=== PATIENT | female | born 1940 | race Caucasian/White ===

== ENCOUNTER 2016-10-12 17:34 | Inpatient (IN) | payer MEDICARE ==
[2016-10-12] VITALS (8 sets, daily range): BP systolic 112–156; BP diastolic 60–92
[~2016-10-12] VITALS: Ht 165.1 cm; Wt 107.1 kg
[~2016-10-12 17:34] MED LIST: ALBU0.63 NEB; APIX5TAB PO; ASPI325T4 PO; AZIT250T6 PO; BENZ100C PO; BENZ100C2 PO; CALC-112 PO; DICL100G7 TP; DIPH25CA58 PO; DOCU100T11 PO; DOCU50CA9 PO; DOXY100T PO; DRON400T PO; FAMO-63 PO; FLEC100T PO; FURO40TA4 PO; GABA-586 PO; GUAI600T38 PO; HYDR-2762 PO; HYDR12.53 PO; IPRA3AMP IH; MIDO5TAB PO; OMEP20CA9 PO; OMEP20TA PO; POTA10TA10 PO; POTA99TA PO; PRED-220 PO; SERT50TA PO
[2016-10-12] MEDS ORDERED: ASPI81TA2 PO (18:02)
[2016-10-12] MEDS ORDERED: IV NORMAL SALINE 1000ML BAG 1,000 ML IV SCH (18:16)
--- NOTE | 2016-10-12 18:28 | PHYS DOC ---
Past Medical History Past Medical History: A-Fib, Arthritis, Constipation, COPD, GERD, Hypertension , Other Additional Past Medical Histor: chronic neck pain; DVT Past Surgical History: Hip Replacement, Hysterectomy, Other Additional Past Surgical Histo: PACEMAKER INSERTION LEFT CHEST, bladder suspension, hernia repair Alcohol Use: None Drug Use: None Adult General Chief Complaint Chief Complaint: WEAKNESS/GENERALIZED HPI HPI Patient is a 76 year old female who presents with complaint of generalized weakness and shortness of breath. Patient states that her generalized weakness has been worsening over the past 3 days. Patient states that she started noticing worsening shortness breath over the past few days. Patient has history COPD. Patient is on home oxygen normally at 3 L/m per nasal cannula. Patient has had severe difficulty with ambulation and normal activities at home due to weakness and shortness of breath. Patient also notes that she has been having trouble with constipation. The patient saw her primary physician's shipping assistant provider who advised her to take 5 MiraLAX capsules with a 32 ounce bottle of Gatorade. Patient states that this helped her move her bowels, however she feels too weak to be able to adequately clean herself in her current state. Patient denies any chest pain. Patient does complain of worsening neuropathy in both of her feet. Review of Systems Review of Systems Constitutional: Generalized weakness, denies fever [] Eyes: Denies change in visual acuity, redness, or eye pain [] HENT: Denies nasal congestion or sore throat [] Respiratory: Shortness breath, cough [] Cardiovascular: Denies chest pain or edema [] GI: Denies abdominal pain, nausea, vomiting, bloody stools or diarrhea [] : Denies dysuria or hematuria [] Musculoskeletal: Denies back pain or joint pain [] Integument: Denies rash or skin lesions [] Neurologic: Neuropathy, Denies headache, focal weakness or sensory changes [] Current Medications Current Medications Current Medications Medications (Trade) Dose Ordered Sig/Ck Start Time Stop Time Status Last Admin Dose Admin Albuterol/ Ipratropium (Duoneb) 6 ml 1X ONCE 10/12/16 18:30 10/12/16 18:31 DC 10/12/16 18:47 6 ML Methylprednisolone Sodium Succinate (Solu-Medrol 125mg Vial) 125 mg 1X ONCE 10/12/16 18:30 10/12/16 18:31 DC 10/12/16 19:08 125 MG Sodium Chloride (Iv Sodium Chloride 0.9% 1000ml Bag) 1,000 ml @ 100 mls/hr Q10H 10/12/16 18:16 10/13/16 04:15 10/12/16 19:09 100 MLS/HR Allergies Allergies Allergies Coded Allergies Type Severity Reaction Last Updated Verified Sulfa (Sulfonamide Antibiotics) Allergy Intermediate Hives 03/03/16 Yes Physical Exam Physical Exam Constitutional: Alert, afebrile, appears ill. [] HENT: Normocephalic, atraumatic, bilateral external ears normal, oropharynx moist, no oral exudates, nose normal. [] Eyes: PERRLA, EOMI, conjunctiva normal, no discharge. [] Neck: Normal range of motion, no tenderness, supple, no stridor. [] Cardiovascular:Heart rate regular rhythm, no murmur [] Lungs & Thorax: Moderate restriction of air movement bilaterally, expiratory wheezes bilaterally, prolonged expiratory phase [] Abdomen: Bowel sounds normal, soft, no tenderness, no masses, no pulsatile masses. [] Skin: Warm, dry, no erythema, no rash. [] Back: No tenderness, no CVA tenderness. [] Extremities: No tenderness, no cyanosis, no clubbing, ROM intact, trace pedal edema. [] Neurologic: Alert and oriented X 3, normal motor function, normal sensory function, no focal deficits noted. [] Current Patient Data Vital Signs Vital Signs Date Time Temp Pulse Resp B/P Pulse Ox O2 Delivery O2 Flow Rate FiO2 10/12/16 19:12 82 16 128/59 97 10/12/16 18:48 Nasal Cannula 2.0 10/12/16 17:46 98.8 98.8 Lab Values Laboratory Tests Test 10/12/16 18:00 White Blood Count 8.2x10^3/uL (4.0-11.0) Red Blood Count 3.46x10^6/uL (3.50-5.40) L Hemoglobin 7.1g/dL (12.0-15.5) L Hematocrit 24.0% (36.0-47.0) L Mean Corpuscular Volume 69fL (79-100) L Mean Corpuscular Hemoglobin 21pg (25-35) L Mean Corpuscular Hemoglobin Concent 30g/dL (31-37) L Red Cell Distribution Width 18.7% (11.5-14.5) H Platelet Count 251x10^3/uL (140-400) Neutrophils (%) (Auto) 64% (31-73) Lymphocytes (%) (Auto) 24% (24-48) Monocytes (%) (Auto) 10% (0-9) H Eosinophils (%) (Auto) 2% (0-3) Basophils (%) (Auto) 1% (0-3) Neutrophils # (Auto) 5.2x10^3uL (1.8-7.7) Lymphocytes # (Auto) 2.0x10^3/uL (1.0-4.8) Monocytes # (Auto) 0.8x10^3/uL (0.0-1.1) Eosinophils # (Auto) 0.1x10^3/uL (0.0-0.7) Basophils # (Auto) 0.0x10^3/uL (0.0-0.2) Platelet Estimate Adequate (ADEQUATE) Polychromasia Slight Hypochromasia Mod Poikilocytosis Slight Anisocytosis Slight Microcytosis Mod Tear Drop Cells Occ Ovalocytes Occ Sodium Level 144mmol/L (136-145) Potassium Level 2.7mmol/L (3.5-5.1) *L Chloride Level 102mmol/L (98-107) Carbon Dioxide Level 32mmol/L (21-32) Anion Gap 10 (6-14) Blood Urea Nitrogen 15mg/dL (7-20) Creatinine 1.1mg/dL (0.6-1.0) H Estimated GFR (Cockcroft-Gault) 48.3 BUN/Creatinine Ratio 14 (6-20) Glucose Level 114mg/dL (70-99) H Calcium Level 8.9mg/dL (8.5-10.1) Magnesium Level 1.7mg/dL (1.8-2.4) L Total Bilirubin 0.3mg/dL (0.2-1.0) Aspartate Amino Transferase (AST) 19U/L (15-37) Alanine Aminotransferase (ALT) 20U/L (14-59) Alkaline Phosphatase 71U/L (46-116) Creatine Kinase 115U/L (26-192) Creatine Kinase MB (Mass) 0.6ng/mL (0.0-3.6) Creatine Kinase MB Relative Index 0.5% (0-4) Troponin I Quantitative < 0.017ng/mL (0.000-0.055) LM-Bsf-G-Type Natriuretic Peptide 128pg/mL (0-449) Total Protein 6.7g/dL (6.4-8.2) Albumin 3.2g/dL (3.4-5.0) L Albumin/Globulin Ratio 0.9 (1.0-1.7) L Laboratory Tests 10/12/16 18:00 Laboratory Tests 10/12/16 18:00 EKG EKG Interpreted by me: Heart rate 87, sinus rhythm, right bundle branch block, no acute ST/T-wave abnormalities present [] Radiology/Procedures Radiology/Procedures One view AP chest x-ray interpreted by me: No acute infiltrates, no effusions, normal cardiac silhouette [] Course & Med Decision Making Course & Med Decision Making Pertinent Labs and Imaging studies reviewed. (See chart for details) Patient started on breathing treatments for COPD exacerbation. Patient was also started on Solu-Medrol. The patient was found to have a critically low hemoglobin of 7.1. The patient was typed and crossed for 2 units of packed red blood cells. Patient also found to have a potassium level at 2.7 and started on oral replacement therapy. Due to patient's current state she is unable to care for herself at home and will be admitted to the hospital for further care. I spoke with Dr. Sharma who accepted care of patient in hospital. Dragon Disclaimer Dragon Disclaimer This electronic medical record was generated, in whole or in part, using a voice recognition dictation system. Departure Departure Impression: Primary Impression: COPD exacerbation Additional Impressions: Symptomatic anemia Hypokalemia Disposition: ADMITTED INPATIENT Admitting Physician: Barb Sharma Condition: GUARDED Referrals: SONU HECK Jr, MD (PCP) Problem Qualifiers PAL SHEIKH MD Oct 12, 2016 18:28
[2016-10-12] MEDS ORDERED: IPRATRPIUM/ALBUTEROL 0.5/2.5MG 3 ML NEBU. NEB ONE (18:30)
[2016-10-12] MEDS ORDERED: methylPREDNISolone SOD SUCC PF 125 MG/2 ML VIAL. IV ONE (18:30)
[2016-10-12 18:31] LABS: BASO % 1 % (0-3); EOS % 2 % (0-3); HEMOGLOBIN 7.1 g/dL (12.0-15.5); LYMPH % 24 % (24-48); MEAN CORPUSCULAR HEMOGLOBIN 21 pg (25-35); MEAN CORPUSCULAR HGB CONC 30 g/dL (31-37); MEAN CORPUSCULAR VOLUME 69 fL (79-100); MONO % 10 % (0-9); NEUT % 64 % (31-73); PLATELET COUNT 251 x10^3/uL (140-400); RED BLOOD COUNT 3.46 x10^6/uL (3.50-5.40); RED CELL DISTRIBUTION WIDTH 18.7 % (11.5-14.5); WHITE BLOOD COUNT 8.2 x10^3/uL (4.0-11.0)
[2016-10-12 18:44] LABS: ANISOCYTOSIS SLIGHT; PLT ESTIMATE ADEQUATE (ADEQUATE)
[2016-10-12 18:46] LABS: HYPOCHROMIA MOD; MICROCYTOSIS MOD; OVALOCYTES OCC; POIKILOCYTOSIS SLIGHT; POLYCHROMASIA SLIGHT; TEAR DROP CELLS OCC
[2016-10-12 18:59] LABS: ALBUMIN 3.2 g/dL (3.4-5.0); ALBUMIN/GLOBULIN RATIO 0.9 (1.0-1.7); CALCIUM 8.9 mg/dL (8.5-10.1); CREATININE 1.1 mg/dL (0.6-1.0); GFR 48.3; TOTAL BILIRUBIN 0.3 mg/dL (0.2-1.0); TOTAL PROTEIN 6.7 g/dL (6.4-8.2)
[2016-10-12 19:01] LABS: POTASSIUM 2.7 mmol/L (3.5-5.1)
[2016-10-12 19:06] LABS: CKMB INDEX 0.5 % (0-4); CKMB MASS 0.6 ng/mL (0.0-3.6)
[2016-10-12] MEDS: IV NORMAL SALINE 1000ML BAG 1,000 ML IV SCH (19:23)
[2016-10-12] MEDS ORDERED: ACETAMINOPHEN 325 MG TABLET. PO PRN (19:30)
[2016-10-12] MEDS ORDERED: POTASSIUM CHLORIDE 20 MEQ TABLET.ER. PO ONE (19:30)
[2016-10-12] MEDS ORDERED: FENTANYL PF 100 MCG/2 ML VIAL. IV PRN (19:30)
[2016-10-12] MEDS ORDERED: ONDANSETRON PF 4 MG/2 ML VIAL. IV PRN (19:30)
[2016-10-12] MEDS ORDERED: FUROSEMIDE 20 MG/2 ML VIAL IV PRN (19:30)
[2016-10-12 20:06] LABS: OBC FLU VALID
[2016-10-12] MEDS: IPRATRPIUM/ALBUTEROL 0.5/2.5MG 3 ML NEBU. NEB SCH (23:17)
[2016-10-12] MEDS ORDERED: HYDROCODONE/APAP 7.5/325MG TABLET. PO PRN (23:45)
[2016-10-12] MEDS ORDERED: GUAIFENESIN ER 600 MG TABLET.ER PO PRN (23:45)
[2016-10-13] VITALS (9 sets, daily range): BP systolic 124–147; BP diastolic 64–75
[2016-10-13] MEDS: methylPREDNISolone SOD SUCC PF 40 MG/ML VIAL. IV SCH ×5 (00:28→23:50)
[2016-10-13] MEDS: GABAPENTIN 300 MG CAPSULE. PO SCH ×3 (00:29→20:22)
[2016-10-13] MEDS: FAMOTIDINE 20 MG TABLET. PO SCH ×2 (00:29→20:22)
--- NOTE | 2016-10-13 00:50 | ACF ---
Admission Forms Criteria COPD Clinical Indications for Admission to Inpatient Care (Place 'X' for any and all applicable criteria): Admission is indicated for ANY ONE of the following (1)(2)(3): [X]I. Acute exacerbation by high-risk comorbidity (e.g., pneumonia, dysrhythmia, heart failure, pleural effusion, pneumothorax) or severe underlying COPD (e.g., steroid dependent) [ ]II. Inpatient admission required rather than observation care (see Chronic Obstructive Pulmonary Disease: Observation Care) because of ANY ONE of the following: [ ]a) New or pre-existing signs or symptoms of COPD (eg, dyspnea or Tachypnea at rest or with minimal activity) that persist despite outpatient and observation care treatment [ ]b) New-onset hypoxemia (room air SaO2 less than 90%, PO2 less than 60 mm Hg (8.0 kPa)) that persists despite outpatient and observation care treatment [ ]c) Worsening of pre-existing hypoxemia (eg, new or increased requirement for supplemental oxygen to maintain oxygenation at baseline level) that persists despite outpatient and observation care treatment, with oxygen treatment needs performable only in acute inpatient setting [ ]d) Hypercarbia (PCO2 greater than 40 mm Hg (5.3 kPa))-induced respiratory acidosis (pH less than 7.35) that persists despite outpatient and observation care treatment [ ]e) Supplemental oxygen or respiratory treatments for over 24 hours that are performable only in acute inpatient setting [ ]f) Chest tube placement with active evacuation (e.g., suction, drainage) (5) [ ]g) Other condition, treatment or monitoring requiring inpatient admission [ ]III. Planned invasive surgical or diagnostic procedures requiring acute- care hospitalization [ ]IV. Acute respiratory failure (e.g., uncompensated hypercarbia, severe hypoxemia) [ ]V. Severe comorbid condition (e.g., severe steroid myopathy, acute vertebral fracture) that has acutely worsened pulmonary function [ ]. Confusion state, lethargy, obtundation, stupor or coma Extended stay beyond goal length of stay may be needed for (31)(32): [ ]a ) Respiratory Failure. [ ]b) Severe or persisting hypoxemia or hypercarbia [ ]c) Severe or persistent dyspnea [ ]d) Comorbidities (e.g. chronic heart failure, atrial fibrillation with rapid response, pneumonia) [ ]e) Malnutrition The original [facility] content created by [facility] has been revised. The portions of the content which have been revised are identified through the use of italic text or in bold, and [facility] has neither reviewed nor approved the modified material. All other unmodified content is copyright [facility]. Please see references footnoted in the original [facility] edition 2016 Admission Criteria Met?: Yes JAME BROWN Oct 13, 2016 00:50
[2016-10-13 04:52] LABS: BASO % 0 % (0-3); EOS % 0 % (0-3); HEMATOCRIT 29.2 % (36.0-47.0); HEMOGLOBIN 9.2 g/dL (12.0-15.5); LYMPH # 0.5 x10^3/uL (1.0-4.8); LYMPH % 6 % (24-48); MEAN CORPUSCULAR HEMOGLOBIN 23 pg (25-35); MEAN CORPUSCULAR HGB CONC 32 g/dL (31-37); MEAN CORPUSCULAR VOLUME 72 fL (79-100); MONO % 1 % (0-9); NEUT % 93 % (31-73); PLATELET COUNT 245 x10^3/uL (140-400); RED BLOOD COUNT 4.04 x10^6/uL (3.50-5.40); RED CELL DISTRIBUTION WIDTH 21.5 % (11.5-14.5); WHITE BLOOD COUNT 8.6 x10^3/uL (4.0-11.0)
[2016-10-13 05:13] LABS: CALCIUM 8.5 mg/dL (8.5-10.1); GFR 53.9; POTASSIUM 3.4 mmol/L (3.5-5.1)
[2016-10-13 06:08] LABS: PLT ESTIMATE ADEQUATE (ADEQUATE)
[2016-10-13 06:09] LABS: ANISOCYTOSIS MOD; HYPOCHROMIA MOD; MICROCYTOSIS SLIGHT
--- NOTE | 2016-10-13 06:52 | EKG ---
[facility] [address] [place] [address] Test Date: 2016-10-12 Test Time: 17:51:45 Pat Name: BERNA BRAVO Department: Room: Gender: F Communications Executive: TAO : 1940 Requested By: PAL SHEIKH Order Number: [id number] Reading MD: Measurements Intervals [place] Rate: 87 P: 138 ND: 154 QRS: -145 QRSD: 134 T: 161 QT: 418 QTc: 510 Interpretive Statements SINUS RHYTHM ABNORMAL RIGHT SUPERIOR AXIS DEVIATION NON SPECIFIC INTRAVENTRICULAR BLOCK RVH WITH REPOLARIZATION ABNORMALITY ABNORMAL ECG RI6.01 No previous ECG available for comparison
[2016-10-13] MEDS: IPRATRPIUM/ALBUTEROL 0.5/2.5MG 3 ML NEBU. NEB SCH ×7 (07:01→20:18)
--- NOTE | 2016-10-13 08:00 | RAD ---
Indication shortness of air. History of hypertension and COPD. A single view of the chest was obtained. Comparison is made to a study 07/10/2016. Heart size is at the upper limits of normal but unchanged. There is no congestive heart failure. Some volume loss at the left lung base is noted appearing similar and likely chronic. A consolidated pneumonia is not seen. Overall a significant change in the appearance of the chest is not seen. Bipolar cardiac pacing device is noted. IMPRESSION: No acute or focal process seen. No significant change
[2016-10-13] MEDS ORDERED: HYDROCHLOROTHIAZIDE 12.5 MG CAPSULE. PO PRN (09:15)
[2016-10-13] MEDS ORDERED: DICLOFENAC SODIUM 1% TOPICAL GEL 100GM TUBE. TP PRN (09:15)
[2016-10-13] MEDS ORDERED: ONDANSETRON PF 4 MG/2 ML VIAL. IV PRN (09:15)
[2016-10-13] MEDS ORDERED: MAGNESIUM HYDROXIDE 2,400 MG/30 ML ORAL.SUSP. PO PRN (09:15)
[2016-10-13] MEDS ORDERED: ACETAMINOPHEN 325 MG TABLET. PO PRN (09:15)
[2016-10-13] MEDS ORDERED: BENZONATATE 100 MG CAPSULE. PO PRN (09:15)
[2016-10-13] MEDS ORDERED: LACTULOSE 20 GM/30 ML SOLUTION. PO PRN (09:15)
[2016-10-13] MEDS ORDERED: DOCUSATE SODIUM 100 MG CAPSULE PO SCH (09:30)
[2016-10-13] MEDS ORDERED: BUDESONIDE 0.5 MG/2 ML NEBU NEB SCH (09:30)
[2016-10-13] MEDS ORDERED: IPRATRPIUM/ALBUTEROL 0.5/2.5MG 3 ML NEBU. IH SCH (09:30)
[2016-10-13] MEDS: ASPIRIN 81 MG TAB.CHEW PO SCH (10:20)
[2016-10-13] MEDS: DOCUSATE SODIUM 100 MG CAPSULE PO SCH ×2 (10:20→20:23)
[2016-10-13] MEDS: GUAIFENESIN ER 600 MG TABLET.ER PO SCH ×2 (10:20→20:23)
[2016-10-13] MEDS: SENNOSIDES/DOCUSATE 8.6/50MG TABLET. PO SCH ×2 (10:20→20:23)
[2016-10-13] MEDS: CALCIUM CARB/VIT D3 500/200 TABLET PO SCH (10:20)
[2016-10-13] MEDS: PANTOPRAZOLE 40 MG TABLET. PO SCH (10:20)
--- NOTE | 2016-10-13 11:30 | PDOC2 ---
GI CONSULT Reason For Consult: Anemia HPI: HPI: 76 y/o evaluated in the ER for progressive weakness. Admitted w/ COPD exacerbation and anemia. H/o anemia w/ Hgb mostly ranging from 8-9, some 10s over the last couple years. Recalls previous blood transfusion. On admission was 7.1 (now 9.2) w/ low indices, elevated RDW, and normal BUN and Cr. Hemoccult, iron profile, ferritin, folate, and B12 ordered. Iron studies all low in 2016. Denies obvious bleeding including hematemesis, hematochezia, melena, and hematuria. Is on Eliquis for A Fib, also prednisone 10mg Q a.m. for COPD (still smokes). H/o GERD on omeprazole Q a.m. after breakfast and Pepcid QHS w/ some improvement of symptoms. Recall sprevious EGD at [facility] (before moving to the [facility] in 2010) which reportedly revealed a hiatal hernia. Additional h/o screening colonoscopy "years ago" (also [facility]) which was reportedly normal. Rare NSAID and narcotic use. Feels bloated and puffy, blames prednisone but also has h/o constipation. Has 1 stool daily w/o straining w/ feeling of incomplete evacuation. Generally uses suppositories PRN. 3 weeks ago called PCP and was advised to do somewhat of a Miralax prep. Had a stool about three days later and has been using Miralax daily this week. PMH: PMH: A Fib, HTN, COPD on O2, BLE DVT, GERD, neuropathy, depression/anxiety, OA, pacemaker, hip replacement, appendectomy, hysterectomy, bladder suspension, cataract extraction, incisional hernia repair FH: Family History: No pertinent hx Social History: Smoke: <1 pack per day ALCOHOL: rare Drugs: None ROS: GEN: Denies fevers, chills, sweats HEENT: Denies blurred vision, sore throat CV: Denies chest pain RESP: +shortness of air, cough GI: Per HPI : Denies hematuria, dysuria ENDO: Denies weight changes NEURO: Denies confusion, dizziness MSK: +weakness SKIN: Denies jaundice, pruritus VItals: Vitals: Vital Signs Date Time Temp Pulse Resp B/P Pulse Ox O2 Delivery O2 Flow Rate FiO2 10/13/16 11:00 98.5 88 24 147/75 97 Room Air 98.5 10/13/16 07:02 3.0 Labs: Labs: Laboratory Tests Test 10/12/16 18:00 10/12/16 19:40 10/13/16 03:55 White Blood Count 8.2x10^3/uL (4.0-11.0) 8.6x10^3/uL (4.0-11.0) Red Blood Count 3.46x10^6/uL (3.50-5.40) 4.04x10^6/uL (3.50-5.40) Hemoglobin 7.1g/dL (12.0-15.5) 9.2g/dL (12.0-15.5) Hematocrit 24.0% (36.0-47.0) 29.2% (36.0-47.0) Mean Corpuscular Volume 69fL (79-100) 72fL (79-100) Mean Corpuscular Hemoglobin 21pg (25-35) 23pg (25-35) Mean Corpuscular Hemoglobin Concent 30g/dL (31-37) 32g/dL (31-37) Red Cell Distribution Width 18.7% (11.5-14.5) 21.5% (11.5-14.5) Platelet Count 251x10^3/uL (140-400) 245x10^3/uL (140-400) Neutrophils (%) (Auto) 64% (31-73) 93% (31-73) Lymphocytes (%) (Auto) 24% (24-48) 6% (24-48) Monocytes (%) (Auto) 10% (0-9) 1% (0-9) Eosinophils (%) (Auto) 2% (0-3) 0% (0-3) Basophils (%) (Auto) 1% (0-3) 0% (0-3) Neutrophils # (Auto) 5.2x10^3uL (1.8-7.7) 8.1x10^3uL (1.8-7.7) Lymphocytes # (Auto) 2.0x10^3/uL (1.0-4.8) 0.5x10^3/uL (1.0-4.8) Monocytes # (Auto) 0.8x10^3/uL (0.0-1.1) 0.1x10^3/uL (0.0-1.1) Eosinophils # (Auto) 0.1x10^3/uL (0.0-0.7) 0.0x10^3/uL (0.0-0.7) Basophils # (Auto) 0.0x10^3/uL (0.0-0.2) 0.0x10^3/uL (0.0-0.2) Platelet Estimate Adequate (ADEQUATE) Adequate (ADEQUATE) Polychromasia Slight Hypochromasia Mod Mod Poikilocytosis Slight Anisocytosis Slight Mod Microcytosis Mod Slight Tear Drop Cells Occ Ovalocytes Occ Sodium Level 144mmol/L (136-145) 143mmol/L (136-145) Potassium Level 2.7mmol/L (3.5-5.1) 3.4mmol/L (3.5-5.1) Chloride Level 102mmol/L (98-107) 103mmol/L (98-107) Carbon Dioxide Level 32mmol/L (21-32) 30mmol/L (21-32) Anion Gap 10 (6-14) 10 (6-14) Blood Urea Nitrogen 15mg/dL (7-20) 14mg/dL (7-20) Creatinine 1.1mg/dL (0.6-1.0) 1.0mg/dL (0.6-1.0) Estimated GFR (Cockcroft-Gault) 48.3 53.9 BUN/Creatinine Ratio 14 (6-20) Glucose Level 114mg/dL (70-99) 201mg/dL (70-99) Calcium Level 8.9mg/dL (8.5-10.1) 8.5mg/dL (8.5-10.1) Magnesium Level 1.7mg/dL (1.8-2.4) Total Bilirubin 0.3mg/dL (0.2-1.0) Aspartate Amino Transf (AST/SGOT) 19U/L (15-37) Alanine Aminotransferase (ALT/SGPT) 20U/L (14-59) Alkaline Phosphatase 71U/L (46-116) Creatine Kinase 115U/L (26-192) Creatine Kinase MB (Mass) 0.6ng/mL (0.0-3.6) Creatine Kinase MB Relative Index 0.5% (0-4) Troponin I Quantitative < 0.017ng/mL (0.000-0.055) SO-Kpf-Q-Type Natriuretic Peptide 128pg/mL (0-449) Total Protein 6.7g/dL (6.4-8.2) Albumin 3.2g/dL (3.4-5.0) Albumin/Globulin Ratio 0.9 (1.0-1.7) Influenza Type A Antigen Negative (NEGATIVE) Influenza Type B Antigen Negative (NEGATIVE) Segmented Neutrophils % 95% (35-66) Lymphocytes % 5% (24-48) Allergies: Coded Allergies: Sulfa (Sulfonamide Antibiotics) (Verified Allergy, Intermediate, Hives, 06/08) Medications: Current Medications Medications (Trade) Dose Ordered Sig/Ck Route PRN Reason Start Time Stop Time Status Last Admin Dose Admin Sodium Chloride (Iv Sodium Chloride 0.9% 1000ml Bag) 1,000 ml @ 100 mls/hr Q10H IV 10/12/16 18:16 10/13/16 04:15 DC 10/12/16 19:09 Albuterol/ Ipratropium (Duoneb) 6 ml 1X ONCE NEB 10/12/16 18:30 10/12/16 18:31 DC 10/12/16 18:47 Methylprednisolone Sodium Succinate (Solu-Medrol 125mg Vial) 125 mg 1X ONCE IV 10/12/16 18:30 10/12/16 18:31 DC 10/12/16 19:08 Potassium Chloride (Klor-Con) 40 meq 1X ONCE PO 10/12/16 19:30 10/12/16 19:31 DC 10/12/16 19:58 Albuterol/ Ipratropium (Duoneb) 3 ml RTQID NEB 10/12/16 20:00 10/13/16 19:59 10/13/16 07:01 Methylprednisolone Sodium Succinate (Solu-Medrol 40mg Vial) 60 mg Q6HRS IV 10/13/16 00:00 10/13/16 05:00 Famotidine (Pepcid) 10 mg HS PO 10/13/16 00:00 10/13/16 00:29 Gabapentin (Neurontin) 300 mg BID PO 10/13/16 00:00 10/13/16 08:06 Acetaminophen/ Hydrocodone Bitart (Lortab 7.5/325) 1 tab PRN Q6HRS PRN PO PAIN 10/12/16 23:45 10/13/16 00:29 Guaifenesin (Mucinex) 600 mg PRN BID PRN PO cough 10/12/16 23:45 10/13/16 00:29 Aspirin (Children'S Aspirin) 81 mg DAILY PO 10/13/16 09:30 10/13/16 10:20 Guaifenesin (Mucinex) 600 mg BID PO 10/13/16 09:30 10/13/16 10:20 Calcium/Vitamin D (Oscal D 500mg/ 200uts) 1 tab DAILYWBKFT PO 10/13/16 09:30 10/13/16 10:20 Pantoprazole Sodium (Protonix) 40 mg DAILYAC PO 10/13/16 11:30 10/13/16 10:20 Senna/Docusate Sodium (Senna Plus) 1 tab BID PO 10/13/16 09:30 10/13/16 10:20 Docusate Sodium (Colace) 100 mg BID PO 10/13/16 09:15 10/13/16 10:20 Imaging: Imaging: CXR 10/12/16 IMPRESSION: No acute or focal process seen. No significant change. PE: GEN: NAD, sitting on edge of bed HEENT: Atraumatic, PERRL LUNGS: decreased, tight, insp and exp wheezing, nasal cannula HEART: tachycardic ABD: BS quiet, S/NT EXTREMITY: No edema SKIN: No rashes, no jaundice NEURO/PSYCH: A & O 3 A/P: A/P: Weakness, COPD Anemia -history of, reviewed labs -iron, B12, folate, hemoccult pending -on Eliquis for A Fib w/ h/o DVTs, rare NSAIDs Constipation, bloating -history of, describes incomplete evacuation -usually uses suppositories, has recently started Miralax -rare narcs GERD -improved w/ PPI (after breakfast) and H2 albin -reports previous EGD showed hiatal hernia CRC screen -reports normal colonoscopy years ago -- Await additional labs. Suggested better timing of PPI. For now, try Miralax BID but might need Relistor or Movantik (?narcs contribute - says doesn't take very often) or something like Amitiza or Linzess. ?KUB Other per Dr. Dejesus. DEVAN NEIL Oct 13, 2016 11:30
[2016-10-13] MEDS ORDERED: POTASSIUM CHLORIDE 20 MEQ TABLET.ER. PO ONE (11:45)
[2016-10-13] MEDS ORDERED: ANTI-COAG MONITOR BY PHARMACY. MC PRN (11:45)
--- NOTE | 2016-10-13 11:50 | PDOC1 ---
History and Physical Date of Admission Date of Admission 10/12/16 Identification/Chief Complaint Chief Complaint weak Problems: Source Source: Chart review, Patient History of Present Illness History of Present Illness HPI HPI Patient is a 76 year old female who presents with complaint of generalized weakness. Pt lives with , use a cane and a walker at home. She denies weight loss, but feels generalized weakness. Hb was found 7.2 in ER, baseline 8-10, but denies dark stool, was found low iron last year,but not taking iron, and pt is not happy about her PCP. she also s/o constipation, not taking stool softer consistently. not taking vege much.She did some abd sx before long time ago, since then , c/o some weird feeling under rib cage, abd ct neg 2015. She looks sob, but when i asked her, she said she feels it is normal for her, and on home NC 3L. but when i told her she has wheezing, she said the wheezing is worse recently. She was here 06/2016 for COPD. still smoking, <1ppd, use duoneb 4 times daily. Past Medical History Cardiovascular: AFIB, HTN, Hyperlipidemia, Other Pulmonary: Bronchitis, COPD GI: GERD Psych: No pertinent hx Rheumatologic: No pertinent hx Infectious disease: No pertinent hx Renal/: No pertinent hx Endocrine: No pertinent hx Past Surgical History Past Surgical History: Pacemaker, Cataract Removal, Hernia Repair, Total hip replacement, Hysterectomy, Other Family History Family History: Hypertension, Family History Unknown Social History Smoke: <1 pack per day ALCOHOL: rare Drugs: None Current Problem List Problem List Problems Medical Problems: (1) COPD exacerbation Status: Acute (2) Hypokalemia Status: Acute (3) Symptomatic anemia Status: Acute Current Medications Current Medications Current Medications Medications (Trade) Dose Ordered Sig/Ck Start Time Stop Time Status Last Admin Dose Admin Acetaminophen (Tylenol) 650 mg PRN Q6HRS PRN 10/13/16 09:15 Acetaminophen/ Hydrocodone Bitart (Lortab 7.5/325) 1 tab PRN Q6HRS PRN 10/12/16 23:45 10/13/16 00:29 1 TAB Albuterol Sulfate (Ventolin Neb Soln) 2.5 mg PRN Q4HRS PRN 10/13/16 09:15 Albuterol/ Ipratropium (Duoneb) 3 ml RTQID 10/13/16 12:00 10/13/16 11:13 3 ML Apixaban (Eliquis) 5 mg BID 10/13/16 12:00 Aspirin (Children'S Aspirin) 81 mg DAILY 10/13/16 09:30 10/13/16 10:20 81 MG Benzonatate (Tessalon Perle) 100 mg PRN DAILY PRN 10/13/16 09:15 Budesonide (Pulmicort) 0.5 mg RTBID 10/13/16 09:30 10/13/16 11:10 0.5 MG Calcium/Vitamin D (Oscal D 500mg/ 200uts) 1 tab [id number] 10/13/16 09:30 10/13/16 10:20 1 TAB Diclofenac Sodium (Voltaren) 1 vish PRN QID PRN 10/13/16 09:15 Docusate Sodium (Colace) 100 mg BID 10/13/16 09:15 10/13/16 10:20 100 MG Famotidine (Pepcid) 10 mg HS 10/13/16 00:00 10/13/16 00:29 10 MG Fentanyl Citrate 50 mcg 50 mcg PRN Q2HR PRN 10/12/16 19:30 10/13/16 19:29 Furosemide (Lasix) 20 mg 1X PRN PRN 10/12/16 19:30 10/13/16 19:29 Gabapentin (Neurontin) 300 mg BID 10/13/16 00:00 10/13/16 08:06 300 MG Guaifenesin (Mucinex) 600 mg BID 10/13/16 09:30 10/13/16 10:20 600 MG Hydrochlorothiazide (Microzide) 12.5 mg PRN DAILY PRN 10/13/16 09:15 Info (Anti-Coagulation Monitoring By Pharmacy) 1 each PRN DAILY PRN 10/13/16 11:45 Lactulose 20 gm PRN Q12HR PRN 10/13/16 09:15 Magnesium Hydroxide (Milk Of Magnesia) 2,400 mg PRN Q12HR PRN 10/13/16 09:15 Methylprednisolone Sodium Succinate (Solu-Medrol 40mg Vial) 60 mg Q6HRS 10/13/16 00:00 10/13/16 05:00 60 MG Methylprednisolone Sodium Succinate (Solu-Medrol 125mg Vial) 125 mg 1X ONCE 10/12/16 18:30 10/12/16 18:31 DC 10/12/16 19:08 125 MG Midodrine (Proamatine) 5 mg [id number] 10/13/16 13:00 Ondansetron HCl (Zofran) 4 mg PRN Q6HRS PRN 10/13/16 09:15 Pantoprazole Sodium (Protonix) 40 mg DAILYAC 10/13/16 11:30 10/13/16 10:20 40 MG Polyethylene Glycol (miraLAX PACKET) 17 gm BID 10/13/16 12:00 Potassium Chloride (Klor-Con) 10 meq DAILYWBKFT 10/14/16 08:00 Senna/Docusate Sodium (Senna Plus) 1 tab BID 10/13/16 09:30 10/13/16 10:20 1 TAB Sodium Chloride (Iv Sodium Chloride 0.9% 1000ml Bag) 1,000 ml @ 75 mls/hr [id number] 10/12/16 19:23 10/13/16 19:22 Allergies Allergies Allergies Coded Allergies Type Severity Reaction Last Updated Verified Sulfa (Sulfonamide Antibiotics) Allergy Intermediate Hives 03/03/16 Yes ROS Review of System CONSTITUTIONAL: No fever or chills EYES: No recent changes SKIN: No rash or itching CARDIOVASCULAR: No chest pain, syncope, palpitations, or edema RESPIRATORY: No SOB or cough GASTROINTESTINAL: No nausea, vomiting or abdominal pain NEUROLOGICAL: No headaches or weakness ENDOCRINE: No cold or heat intolerance GENITOURINARY: No urgency or frequency of urination MUSCULOSKELETAL: No back pain or joint pain LYMPHATICS: No enlarged lymph nodes PSYCHIATRIC: No anxiety or depression Physical Exam Physical Exam GEN.: No apparent distress. Alert and oriented. HEENT: Head is normocephalic, atraumatic NECK: Supple. LUNGS: Clear to auscultation. HEART: RRR, S1, S2 present. Peripheral pulses intact ABDOMEN: Soft, nontender. Positive bowel sounds. EXTREMITIES: Without any cyanosis. NEUROLOGIC: Normal speech, normal tone PSYCHIATRIC: Normal affect, normal mood. SKIN: No ulcerations Vitals Vitals Vital Signs Date Time Temp Pulse Resp B/P Pulse Ox O2 Delivery O2 Flow Rate FiO2 10/13/16 11:15 Nasal Cannula 3.0 10/13/16 11:00 98.5 88 24 147/75 97 98.5 Labs Labs Laboratory Tests Test 10/12/16 18:00 10/12/16 19:40 10/13/16 03:55 White Blood Count 8.2x10^3/uL (4.0-11.0) 8.6x10^3/uL (4.0-11.0) Red Blood Count 3.46x10^6/uL (3.50-5.40) 4.04x10^6/uL (3.50-5.40) Hemoglobin 7.1g/dL (12.0-15.5) 9.2g/dL (12.0-15.5) Hematocrit 24.0% (36.0-47.0) 29.2% (36.0-47.0) Mean Corpuscular Volume 69fL (79-100) 72fL (79-100) Mean Corpuscular Hemoglobin 21pg (25-35) 23pg (25-35) Mean Corpuscular Hemoglobin Concent 30g/dL (31-37) 32g/dL (31-37) Red Cell Distribution Width 18.7% (11.5-14.5) 21.5% (11.5-14.5) Platelet Count 251x10^3/uL (140-400) 245x10^3/uL (140-400) Neutrophils (%) (Auto) 64% (31-73) 93% (31-73) Lymphocytes (%) (Auto) 24% (24-48) 6% (24-48) Monocytes (%) (Auto) 10% (0-9) 1% (0-9) Eosinophils (%) (Auto) 2% (0-3) 0% (0-3) Basophils (%) (Auto) 1% (0-3) 0% (0-3) Neutrophils # (Auto) 5.2x10^3uL (1.8-7.7) 8.1x10^3uL (1.8-7.7) Lymphocytes # (Auto) 2.0x10^3/uL (1.0-4.8) 0.5x10^3/uL (1.0-4.8) Monocytes # (Auto) 0.8x10^3/uL (0.0-1.1) 0.1x10^3/uL (0.0-1.1) Eosinophils # (Auto) 0.1x10^3/uL (0.0-0.7) 0.0x10^3/uL (0.0-0.7) Basophils # (Auto) 0.0x10^3/uL (0.0-0.2) 0.0x10^3/uL (0.0-0.2) Platelet Estimate Adequate (ADEQUATE) Adequate (ADEQUATE) Polychromasia Slight Hypochromasia Mod Mod Poikilocytosis Slight Anisocytosis Slight Mod Microcytosis Mod Slight Tear Drop Cells Occ Ovalocytes Occ Sodium Level 144mmol/L (136-145) 143mmol/L (136-145) Potassium Level 2.7mmol/L (3.5-5.1) 3.4mmol/L (3.5-5.1) Chloride Level 102mmol/L (98-107) 103mmol/L (98-107) Carbon Dioxide Level 32mmol/L (21-32) 30mmol/L (21-32) Anion Gap 10 (6-14) 10 (6-14) Blood Urea Nitrogen 15mg/dL (7-20) 14mg/dL (7-20) Creatinine 1.1mg/dL (0.6-1.0) 1.0mg/dL (0.6-1.0) Estimated GFR (Cockcroft-Gault) 48.3 53.9 BUN/Creatinine Ratio 14 (6-20) Glucose Level 114mg/dL (70-99) 201mg/dL (70-99) Calcium Level 8.9mg/dL (8.5-10.1) 8.5mg/dL (8.5-10.1) Magnesium Level 1.7mg/dL (1.8-2.4) Total Bilirubin 0.3mg/dL (0.2-1.0) Aspartate Amino Transf (AST/SGOT) 19U/L (15-37) Alanine Aminotransferase (ALT/SGPT) 20U/L (14-59) Alkaline Phosphatase 71U/L (46-116) Creatine Kinase 115U/L (26-192) Creatine Kinase MB (Mass) 0.6ng/mL (0.0-3.6) Creatine Kinase MB Relative Index 0.5% (0-4) Troponin I Quantitative < 0.017ng/mL (0.000-0.055) ZM-Lgr-S-Type Natriuretic Peptide 128pg/mL (0-449) Total Protein 6.7g/dL (6.4-8.2) Albumin 3.2g/dL (3.4-5.0) Albumin/Globulin Ratio 0.9 (1.0-1.7) Influenza Type A Antigen Negative (NEGATIVE) Influenza Type B Antigen Negative (NEGATIVE) Segmented Neutrophils % 95% (35-66) Lymphocytes % 5% (24-48) Laboratory Tests Test 10/12/16 18:00 10/12/16 19:40 10/13/16 03:55 White Blood Count 8.2x10^3/uL (4.0-11.0) 8.6x10^3/uL (4.0-11.0) Red Blood Count 3.46x10^6/uL (3.50-5.40) 4.04x10^6/uL (3.50-5.40) Hemoglobin 7.1g/dL (12.0-15.5) 9.2g/dL (12.0-15.5) Hematocrit 24.0% (36.0-47.0) 29.2% (36.0-47.0) Mean Corpuscular Volume 69fL (79-100) 72fL (79-100) Mean Corpuscular Hemoglobin 21pg (25-35) 23pg (25-35) Mean Corpuscular Hemoglobin Concent 30g/dL (31-37) 32g/dL (31-37) Red Cell Distribution Width 18.7% (11.5-14.5) 21.5% (11.5-14.5) Platelet Count 251x10^3/uL (140-400) 245x10^3/uL (140-400) Neutrophils (%) (Auto) 64% (31-73) 93% (31-73) Lymphocytes (%) (Auto) 24% (24-48) 6% (24-48) Monocytes (%) (Auto) 10% (0-9) 1% (0-9) Eosinophils (%) (Auto) 2% (0-3) 0% (0-3) Basophils (%) (Auto) 1% (0-3) 0% (0-3) Neutrophils # (Auto) 5.2x10^3uL (1.8-7.7) 8.1x10^3uL (1.8-7.7) Lymphocytes # (Auto) 2.0x10^3/uL (1.0-4.8) 0.5x10^3/uL (1.0-4.8) Monocytes # (Auto) 0.8x10^3/uL (0.0-1.1) 0.1x10^3/uL (0.0-1.1) Eosinophils # (Auto) 0.1x10^3/uL (0.0-0.7) 0.0x10^3/uL (0.0-0.7) Basophils # (Auto) 0.0x10^3/uL (0.0-0.2) 0.0x10^3/uL (0.0-0.2) Platelet Estimate Adequate (ADEQUATE) Adequate (ADEQUATE) Polychromasia Slight Hypochromasia Mod Mod Poikilocytosis Slight Anisocytosis Slight Mod Microcytosis Mod Slight Tear Drop Cells Occ Ovalocytes Occ Sodium Level 144mmol/L (136-145) 143mmol/L (136-145) Potassium Level 2.7mmol/L (3.5-5.1) 3.4mmol/L (3.5-5.1) Chloride Level 102mmol/L (98-107) 103mmol/L (98-107) Carbon Dioxide Level 32mmol/L (21-32) 30mmol/L (21-32) Anion Gap 10 (6-14) 10 (6-14) Blood Urea Nitrogen 15mg/dL (7-20) 14mg/dL (7-20) Creatinine 1.1mg/dL (0.6-1.0) 1.0mg/dL (0.6-1.0) Estimated GFR (Cockcroft-Gault) 48.3 53.9 BUN/Creatinine Ratio 14 (6-20) Glucose Level 114mg/dL (70-99) 201mg/dL (70-99) Calcium Level 8.9mg/dL (8.5-10.1) 8.5mg/dL (8.5-10.1) Magnesium Level 1.7mg/dL (1.8-2.4) Total Bilirubin 0.3mg/dL (0.2-1.0) Aspartate Amino Transf (AST/SGOT) 19U/L (15-37) Alanine Aminotransferase (ALT/SGPT) 20U/L (14-59) Alkaline Phosphatase 71U/L (46-116) Creatine Kinase 115U/L (26-192) Creatine Kinase MB (Mass) 0.6ng/mL (0.0-3.6) Creatine Kinase MB Relative Index 0.5% (0-4) Troponin I Quantitative < 0.017ng/mL (0.000-0.055) FE-Frl-W-Type Natriuretic Peptide 128pg/mL (0-449) Total Protein 6.7g/dL (6.4-8.2) Albumin 3.2g/dL (3.4-5.0) Albumin/Globulin Ratio 0.9 (1.0-1.7) Influenza Type A Antigen Negative (NEGATIVE) Influenza Type B Antigen Negative (NEGATIVE) Segmented Neutrophils % 95% (35-66) Lymphocytes % 5% (24-48) VTE Prophylaxis Ordered VTE Prophylaxis Devices: No VTE Pharmacological Prophylaxi: No Assessment/Plan Assessment/Plan 1. generalized weakness 2/2 copd and anemia 2. chronic anemia, iron deficiency likely 3. copd exacerbation 4. PAFIB 5. chronic OA 6.CHRONIC constipation 7. gerd 8. htn 9h/o bl leg dvt 10. PPM 11. HYPOkalemia 12. hypomagnesemia 13. smoking plan: 1. pulm, gi consult 2. cont duoneb, solumedrol, mucinex 3. cont home meds, on eliquis 4. add stool softner 5. replete k, mag labs tmr protonix PTOT ANEmia panel JORDI ROE MD Oct 13, 2016 11:50
[2016-10-13] MEDS ORDERED: MAGNESIUM SULFATE 2GM 50 ML IV ONE (12:00)
[2016-10-13] MEDS: MIDODRINE 5 MG TABLET PO SCH ×2 (13:09→17:38)
[2016-10-13] MEDS: POLYETHYLENE GLYCOL 3350 17 GM PACKET. PO SCH ×2 (13:09→20:22)
[2016-10-13] MEDS: APIXABAN 5 MG TABLET. PO SCH ×2 (13:09→20:22)
[2016-10-13] MEDS: IV NORMAL SALINE 1000ML BAG 1,000 ML IV SCH (13:10)
[2016-10-13 13:30] LABS: BILIRUBIN,URINE NEGATIVE (NEG); GLUCOSE,URINE 500 mg/dL (NEG); NITRITE,URINE NEGATIVE (NEG); PROTEIN,URINE NEGATIVE (NEG-TRACE); UROBILINOGEN,URINE 0.2 mg/dL (0.2 mg/dL)
[2016-10-13 13:42] LABS: BACTERIA,URINE FEW /HPF (0-FEW); RBC,URINE 0 /HPF (0-2); SQUAMOUS EPITHELIAL CELL,UR MOD /LPF; WBC,URINE OCC /HPF (0-4)
--- NOTE | 2016-10-13 14:47 | PDOC ---
Provider Note Provider Note dictated JAZMINE IVERSON MD Oct 13, 2016 14:47
--- NOTE | 2016-10-13 15:25 | CONS ---
DATE OF CONSULTATION: ATTENDING PHYSICIAN: Dr. Sharma. REASON FOR CONSULTATION: Dyspnea and weakness. HISTORY OF PRESENT ILLNESS: The patient is a 76-year-old female who has a history of oxygen-dependent chronic obstructive airway disease and chronic respiratory failure. She has been on chronic prednisone. She came into the hospital with generalized weakness. She was found to have hemoglobin of 7.2 in the ER. The patient states that she has been feeling bloated as well. She has constipation, which she is struggling and anytime when she strained she gets short of breath. The patient has been seen by Dr. Dejesus now. She denies any cough, no chest pains. With minimal activity, she gets short of breath and audible wheezing. Her chest x-ray reviewed, no acute process is seen. Consultation requested for further evaluation and management. 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 She uses a Trilogy ventilator, which she stopped using it and it was returned to [address]. PAST MEDICAL HISTORY: Significant for: 1. History of chronic respiratory failure on home oxygen 3-4 liters. History of severe COPD. 2. History of recurrent DVT, on chronic anticoagulation. 3. History of constipation. 4. History of hyperlipidemia. PAST SURGICAL HISTORY: Pacemaker, cataract removal, hernia repair, total hip replacement and hysterectomy. FAMILY HISTORY: Hypertension. SOCIAL HISTORY: She has a long history of tobacco use, but quit tobacco. ALLERGIES: TO SULFA. MEDICATIONS: Reviewed as listed in the MRAD including DuoNebs and Pulmicort. The patient is also on Eliquis. REVIEW OF SYSTEMS: Twelve-point systems were obtained. Pertinent positives discussed in my present illness, otherwise noncontributory. All systems that were negative were reviewed as well. PHYSICAL EXAMINATION: VITAL SIGNS: Blood pressure 147/75, pulse ox 97% on 3 liters, afebrile. HEENT: Sclerae nonicteric. NECK: Supple. LUNGS: With faint expiratory wheezes. CARDIOVASCULAR: Regular rate and rhythm. ABDOMEN: Soft, distended, decreased bowel sounds. EXTREMITIES: With no pitting edema. LABORATORY DATA: Reviewed. Influenza screen is negative. Chemistries: Potassium 3.4, BUN 14, creatinine 1.0. White cell count 8.6, hemoglobin ____ and platelets are ____. IMPRESSION: 1. Dyspnea secondary to combination of acute exacerbation of chronic obstructive pulmonary disease, anemia and increasing abdominal distension and bloating resulting in reduced lung compliance. 2. Chronic respiratory failure, on home oxygen at 3-4 liters. Oxygen requirement has not changed. 3. No definite pneumonia seen. 4. History of recurrent deep vein thrombosis, on chronic anticoagulation with Eliquis. 5. Weakness ,suspect due to anemia and ? steroid induced myopathy. RECOMMENDATIONS: 1. Continue with present oxygen. 2. Continue present bronchodilators. 3. The patient's dyspnea and weakness is probably related to anemia. She used to be on chronic steroids. She said she stopped 5 days ago. Cannot exclude steroid-induced myopathy and it is reasonable to keep her off for now. 4. Follow GI recommendations. She may need EGD and workup of anemia along with constipation workup. 5. Anticoagulation can be withheld if invasive GI procedures are required. JAZMINE IVERSON MD DR: ALIX/adrienne JOB#: [id number] / [id number] [employer]
[2016-10-13] MEDS: BUDESONIDE 0.5 MG/2 ML NEBU. NEB SCH (20:18)
[2016-10-13] MEDS: DIPHENHYDRAMINE HCL 25 MG CAPSULE PO PRN (21:58)
[2016-10-13] MEDS: BENZONATATE 100 MG CAPSULE. PO PRN (21:58)
[2016-10-14 02:11] LABS: NEG OBC FOB NEG; POS OBC FOB POS
[2016-10-14 04:40] LABS: BASO % 0 % (0-3); EOS % 0 % (0-3); HEMATOCRIT 26.9 % (36.0-47.0); HEMOGLOBIN 8.3 g/dL (12.0-15.5); LYMPH # 0.7 x10^3/uL (1.0-4.8); LYMPH % 5 % (24-48); MEAN CORPUSCULAR HEMOGLOBIN 23 pg (25-35); MEAN CORPUSCULAR HGB CONC 31 g/dL (31-37); MEAN CORPUSCULAR VOLUME 74 fL (79-100); MONO % 3 % (0-9); NEUT % 92 % (31-73); PLATELET COUNT 233 x10^3/uL (140-400); RED BLOOD COUNT 3.65 x10^6/uL (3.50-5.40); RED CELL DISTRIBUTION WIDTH 21.6 % (11.5-14.5); WHITE BLOOD COUNT 14.1 x10^3/uL (4.0-11.0)
[2016-10-14 05:04] LABS: % SAT IRON 5 % (15-34); IRON,SERUM 17 ug/dL (50-170)
[2016-10-14 05:08] LABS: CALCIUM 8.8 mg/dL (8.5-10.1); GFR 53.9; MAGNESIUM 2.5 mg/dL (1.8-2.4); PHOSPHORUS 2.9 mg/dL (2.6-4.7); POTASSIUM 4.1 mmol/L (3.5-5.1)
[2016-10-14] MEDS: MIDODRINE 5 MG TABLET PO SCH ×3 (05:37→18:00)
[2016-10-14] MEDS: methylPREDNISolone SOD SUCC PF 40 MG/ML VIAL. IV SCH ×3 (05:37→20:53)
[2016-10-14] MEDS ORDERED: CALCIUM CARB/VIT D3 500/200 TABLET. ONE (07:46)
[2016-10-14 07:50] VITALS: BP 118/54
[2016-10-14] MEDS: IPRATRPIUM/ALBUTEROL 0.5/2.5MG 3 ML NEBU. NEB SCH ×5 (07:52→20:30)
[2016-10-14] MEDS: BUDESONIDE 0.5 MG/2 ML NEBU. NEB SCH ×3 (07:52→20:31)
[2016-10-14] MEDS: PANTOPRAZOLE 40 MG TABLET. PO SCH (08:06)
[2016-10-14] MEDS: GABAPENTIN 300 MG CAPSULE. PO SCH ×3 (08:07→20:52)
[2016-10-14] MEDS: GUAIFENESIN ER 600 MG TABLET.ER PO SCH ×2 (08:07→20:53)
[2016-10-14] MEDS: POTASSIUM CHLORIDE 10 MEQ TABLET.ER. PO SCH (08:07)
[2016-10-14] MEDS: CALCIUM CARB/VIT D3 500/200 TABLET PO SCH (08:07)
[2016-10-14] MEDS: APIXABAN 5 MG TABLET. PO SCH ×2 (08:07→20:53)
[2016-10-14] MEDS: SENNOSIDES/DOCUSATE 8.6/50MG TABLET. PO SCH (08:08)
[2016-10-14] MEDS: DOCUSATE SODIUM 100 MG CAPSULE PO SCH (08:08)
[2016-10-14] MEDS: ASPIRIN 81 MG TAB.CHEW PO SCH (08:08)
[2016-10-14] MEDS: POLYETHYLENE GLYCOL 3350 17 GM PACKET. PO SCH (08:08)
[2016-10-14] MEDS ORDERED: APIXABAN 5 MG TABLET. PO SCH (09:00)
[2016-10-14 09:18] LABS: FOLATE 5.7 ng/ml (3.2-20.0)
[2016-10-14] MEDS: DOXYCYCLINE HYCLATE 100 MG TABLET PO SCH ×2 (10:01→20:52)
[2016-10-14] MEDS: IRON SUCROSE COMPLEX 200 MG in IV NORMAL SALINE 100ML 100 ML IV SCH (10:02)
--- NOTE | 2016-10-14 10:08 | PDOC ---
PROGRESS NOTES Chief Complaint Chief Complaint 1. generalized weakness 2/2 copd and anemia, possible steroid induced weakness 2. chronic anemia, iron deficiency likely 3. copd exacerbation 4. PAFIB 5. chronic OA 6.CHRONIC constipation 7. gerd 8. htn 9h/o bl leg dvt 10. PPM 11. HYPOkalemia 12. hypomagnesemia 13. smoking 14. bl leg neuropathy plan: 1. pulm, gi consulted 2. cont duoneb, solumedrol tid, mucinex, add doxy 3. cont home meds, on eliquis 4. add stool softner, hold for prn given diarrhea last night 5. replete k, mag labs tmr protonix PTOT ANEmia panel, replete IRON IV X5DS, add vitamin b12 daily add gabapentin tid History of Present Illness History of Present Illness feels more cough, sob on NC 4L now. weakness slightly better iron low Vitals Vitals Vital Signs Date Time Temp Pulse Resp B/P Pulse Ox O2 Delivery O2 Flow Rate FiO2 10/14/16 07:50 97.7 94 20 118/54 98 Nasal Cannula 4.0 97.7 Physical Exam General: Alert, Oriented X3, Cooperative Heart: Regular rate, Normal S1, Normal S2 Lungs: Wheezing (bl mild, tight bs) Abdomen: Normal bowel sounds, Soft Extremities: No clubbing, No cyanosis Skin: No rashes Labs LABS Laboratory Tests Test 10/14/16 01:25 10/14/16 03:55 Stool Occult Blood Negative (NEG) White Blood Count 14.1x10^3/uL (4.0-11.0) Red Blood Count 3.65x10^6/uL (3.50-5.40) Hemoglobin 8.3g/dL (12.0-15.5) Hematocrit 26.9% (36.0-47.0) Mean Corpuscular Volume 74fL (79-100) Mean Corpuscular Hemoglobin 23pg (25-35) Mean Corpuscular Hemoglobin Concent 31g/dL (31-37) Red Cell Distribution Width 21.6% (11.5-14.5) Platelet Count 233x10^3/uL (140-400) Neutrophils (%) (Auto) 92% (31-73) Lymphocytes (%) (Auto) 5% (24-48) Monocytes (%) (Auto) 3% (0-9) Eosinophils (%) (Auto) 0% (0-3) Basophils (%) (Auto) 0% (0-3) Neutrophils # (Auto) 13.0x10^3uL (1.8-7.7) Lymphocytes # (Auto) 0.7x10^3/uL (1.0-4.8) Monocytes # (Auto) 0.5x10^3/uL (0.0-1.1) Eosinophils # (Auto) 0.0x10^3/uL (0.0-0.7) Basophils # (Auto) 0.0x10^3/uL (0.0-0.2) Sodium Level 145mmol/L (136-145) Potassium Level 4.1mmol/L (3.5-5.1) Chloride Level 106mmol/L (98-107) Carbon Dioxide Level 29mmol/L (21-32) Anion Gap 10 (6-14) Blood Urea Nitrogen 21mg/dL (7-20) Creatinine 1.0mg/dL (0.6-1.0) Estimated GFR (Cockcroft-Gault) 53.9 Glucose Level 173mg/dL (70-99) Calcium Level 8.8mg/dL (8.5-10.1) Phosphorus Level 2.9mg/dL (2.6-4.7) Magnesium Level 2.5mg/dL (1.8-2.4) Iron Level 17ug/dL (50-170) Total Iron Binding Capacity 333ug/dL (250-450) Iron Saturation 5% (15-34) Ferritin 11ng/mL (8-252) Vitamin B12 Level 305pg/mL (247-911) Serum Folate 5.70ng/ml (3.2-20.0) Review of Systems Review of Systems no fever, chills, chest pain Assessment and Plan Assessmemt and Plan Problems Medical Problems: (1) COPD exacerbation Status: Acute (2) Hypokalemia Status: Acute (3) Symptomatic anemia Status: Acute Problems: Comment Review of Relevant I have reviewed the following items margaret (where applicable) has been applied. Labs Laboratory Tests Test 10/12/16 12:20 10/12/16 18:00 10/12/16 19:40 10/13/16 03:55 Urine Collection Type Unknown Urine Color Yellow Urine Clarity Clear Urine pH 6.0 Urine Specific [place] 1.015 Urine Protein Negativemg/dL (NEG-TRACE) Urine Glucose (UA) 500mg/dL (NEG) Urine Ketones (Stick) Negativemg/dL (NEG) Urine Blood Negative (NEG) Urine Nitrite Negative (NEG) Urine Bilirubin Negative (NEG) Urine Urobilinogen Dipstick 0.2mg/dL (0.2 mg/dL) Urine Leukocyte Esterase Negative (NEG) Urine RBC 0/HPF (0-2) Urine WBC Occ/HPF (0-4) Urine Squamous Epithelial Cells Mod/LPF Urine Renal Epithelial Cells Occ/LPF Urine Bacteria Few/HPF (0-FEW) White Blood Count 8.2x10^3/uL (4.0-11.0) 8.6x10^3/uL (4.0-11.0) Red Blood Count 3.46x10^6/uL (3.50-5.40) 4.04x10^6/uL (3.50-5.40) Hemoglobin 7.1g/dL (12.0-15.5) 9.2g/dL (12.0-15.5) Hematocrit 24.0% (36.0-47.0) 29.2% (36.0-47.0) Mean Corpuscular Volume 69fL (79-100) 72fL (79-100) Mean Corpuscular Hemoglobin 21pg (25-35) 23pg (25-35) Mean Corpuscular Hemoglobin Concent 30g/dL (31-37) 32g/dL (31-37) Red Cell Distribution Width 18.7% (11.5-14.5) 21.5% (11.5-14.5) Platelet Count 251x10^3/uL (140-400) 245x10^3/uL (140-400) Neutrophils (%) (Auto) 64% (31-73) 93% (31-73) Lymphocytes (%) (Auto) 24% (24-48) 6% (24-48) Monocytes (%) (Auto) 10% (0-9) 1% (0-9) Eosinophils (%) (Auto) 2% (0-3) 0% (0-3) Basophils (%) (Auto) 1% (0-3) 0% (0-3) Neutrophils # (Auto) 5.2x10^3uL (1.8-7.7) 8.1x10^3uL (1.8-7.7) Lymphocytes # (Auto) 2.0x10^3/uL (1.0-4.8) 0.5x10^3/uL (1.0-4.8) Monocytes # (Auto) 0.8x10^3/uL (0.0-1.1) 0.1x10^3/uL (0.0-1.1) Eosinophils # (Auto) 0.1x10^3/uL (0.0-0.7) 0.0x10^3/uL (0.0-0.7) Basophils # (Auto) 0.0x10^3/uL (0.0-0.2) 0.0x10^3/uL (0.0-0.2) Platelet Estimate Adequate (ADEQUATE) Adequate (ADEQUATE) Polychromasia Slight Hypochromasia Mod Mod Poikilocytosis Slight Anisocytosis Slight Mod Microcytosis Mod Slight Tear Drop Cells Occ Ovalocytes Occ Sodium Level 144mmol/L (136-145) 143mmol/L (136-145) Potassium Level 2.7mmol/L (3.5-5.1) 3.4mmol/L (3.5-5.1) Chloride Level 102mmol/L (98-107) 103mmol/L (98-107) Carbon Dioxide Level 32mmol/L (21-32) 30mmol/L (21-32) Anion Gap 10 (6-14) 10 (6-14) Blood Urea Nitrogen 15mg/dL (7-20) 14mg/dL (7-20) Creatinine 1.1mg/dL (0.6-1.0) 1.0mg/dL (0.6-1.0) Estimated GFR (Cockcroft-Gault) 48.3 53.9 BUN/Creatinine Ratio 14 (6-20) Glucose Level 114mg/dL (70-99) 201mg/dL (70-99) Calcium Level 8.9mg/dL (8.5-10.1) 8.5mg/dL (8.5-10.1) Magnesium Level 1.7mg/dL (1.8-2.4) Total Bilirubin 0.3mg/dL (0.2-1.0) Aspartate Amino Transf (AST/SGOT) 19U/L (15-37) Alanine Aminotransferase (ALT/SGPT) 20U/L (14-59) Alkaline Phosphatase 71U/L (46-116) Creatine Kinase 115U/L (26-192) Creatine Kinase MB (Mass) 0.6ng/mL (0.0-3.6) Creatine Kinase MB Relative Index 0.5% (0-4) Troponin I Quantitative < 0.017ng/mL (0.000-0.055) JL-Vih-D-Type Natriuretic Peptide 128pg/mL (0-449) Total Protein 6.7g/dL (6.4-8.2) Albumin 3.2g/dL (3.4-5.0) Albumin/Globulin Ratio 0.9 (1.0-1.7) Influenza Type A Antigen Negative (NEGATIVE) Influenza Type B Antigen Negative (NEGATIVE) Segmented Neutrophils % 95% (35-66) Lymphocytes % 5% (24-48) Test 10/14/16 01:25 10/14/16 03:55 Stool Occult Blood Negative (NEG) White Blood Count 14.1x10^3/uL (4.0-11.0) Red Blood Count 3.65x10^6/uL (3.50-5.40) Hemoglobin 8.3g/dL (12.0-15.5) Hematocrit 26.9% (36.0-47.0) Mean Corpuscular Volume 74fL (79-100) Mean Corpuscular Hemoglobin 23pg (25-35) Mean Corpuscular Hemoglobin Concent 31g/dL (31-37) Red Cell Distribution Width 21.6% (11.5-14.5) Platelet Count 233x10^3/uL (140-400) Neutrophils (%) (Auto) 92% (31-73) Lymphocytes (%) (Auto) 5% (24-48) Monocytes (%) (Auto) 3% (0-9) Eosinophils (%) (Auto) 0% (0-3) Basophils (%) (Auto) 0% (0-3) Neutrophils # (Auto) 13.0x10^3uL (1.8-7.7) Lymphocytes # (Auto) 0.7x10^3/uL (1.0-4.8) Monocytes # (Auto) 0.5x10^3/uL (0.0-1.1) Eosinophils # (Auto) 0.0x10^3/uL (0.0-0.7) Basophils # (Auto) 0.0x10^3/uL (0.0-0.2) Sodium Level 145mmol/L (136-145) Potassium Level 4.1mmol/L (3.5-5.1) Chloride Level 106mmol/L (98-107) Carbon Dioxide Level 29mmol/L (21-32) Anion Gap 10 (6-14) Blood Urea Nitrogen 21mg/dL (7-20) Creatinine 1.0mg/dL (0.6-1.0) Estimated GFR (Cockcroft-Gault) 53.9 Glucose Level 173mg/dL (70-99) Calcium Level 8.8mg/dL (8.5-10.1) Phosphorus Level 2.9mg/dL (2.6-4.7) Magnesium Level 2.5mg/dL (1.8-2.4) Iron Level 17ug/dL (50-170) Total Iron Binding Capacity 333ug/dL (250-450) Iron Saturation 5% (15-34) Ferritin 11ng/mL (8-252) Vitamin B12 Level 305pg/mL (247-911) Serum Folate 5.70ng/ml (3.2-20.0) Laboratory Tests Test 10/14/16 01:25 10/14/16 03:55 Stool Occult Blood Negative (NEG) White Blood Count 14.1x10^3/uL (4.0-11.0) Red Blood Count 3.65x10^6/uL (3.50-5.40) Hemoglobin 8.3g/dL (12.0-15.5) Hematocrit 26.9% (36.0-47.0) Mean Corpuscular Volume 74fL (79-100) Mean Corpuscular Hemoglobin 23pg (25-35) Mean Corpuscular Hemoglobin Concent 31g/dL (31-37) Red Cell Distribution Width 21.6% (11.5-14.5) Platelet Count 233x10^3/uL (140-400) Neutrophils (%) (Auto) 92% (31-73) Lymphocytes (%) (Auto) 5% (24-48) Monocytes (%) (Auto) 3% (0-9) Eosinophils (%) (Auto) 0% (0-3) Basophils (%) (Auto) 0% (0-3) Neutrophils # (Auto) 13.0x10^3uL (1.8-7.7) Lymphocytes # (Auto) 0.7x10^3/uL (1.0-4.8) Monocytes # (Auto) 0.5x10^3/uL (0.0-1.1) Eosinophils # (Auto) 0.0x10^3/uL (0.0-0.7) Basophils # (Auto) 0.0x10^3/uL (0.0-0.2) Sodium Level 145mmol/L (136-145) Potassium Level 4.1mmol/L (3.5-5.1) Chloride Level 106mmol/L (98-107) Carbon Dioxide Level 29mmol/L (21-32) Anion Gap 10 (6-14) Blood Urea Nitrogen 21mg/dL (7-20) Creatinine 1.0mg/dL (0.6-1.0) Estimated GFR (Cockcroft-Gault) 53.9 Glucose Level 173mg/dL (70-99) Calcium Level 8.8mg/dL (8.5-10.1) Phosphorus Level 2.9mg/dL (2.6-4.7) Magnesium Level 2.5mg/dL (1.8-2.4) Iron Level 17ug/dL (50-170) Total Iron Binding Capacity 333ug/dL (250-450) Iron Saturation 5% (15-34) Ferritin 11ng/mL (8-252) Vitamin B12 Level 305pg/mL (247-911) Serum Folate 5.70ng/ml (3.2-20.0) Microbiology 10/12/16 Blood Culture - Preliminary, Resulted NO GROWTH AFTER 1 DAY Medications Current Medications Sodium Chloride (Iv Sodium Chloride 0.9% 1000ml Bag) 1,000 ml @ 100 mls/hr Q10H IV Last administered on 10/12/16t 19:09; Start 10/12/16 at 18:16; Stop at 04:15; Status DC Albuterol/ Ipratropium (Duoneb) 6 ml 1X ONCE NEB Last administered on 18:47; Start 10/12/16 at 18:30; Stop 10/12/16 at 18:31; Status DC Methylprednisolone Sodium Succinate (Solu-Medrol 125mg Vial) 125 mg 1X ONCE IV Last administered on 10/12/16 19:08; Start 10/12/16 at 18:30; Stop 10/12/16 at 18:31; Status DC Potassium Chloride (Klor-Con) 40 meq 1X ONCE PO Last administered on 19:58; Start 10/12/16 at 19:30; Stop 10/12/16 at 19:31; Status DC Ondansetron HCl (Zofran) 4 mg PRN Q8HRS PRN IV NAUSEA/VOMITING; Start 10/12/16 at 19:30; Stop 10/13/16 at 19:29; Status DC Fentanyl Citrate 50 mcg 50 mcg PRN Q2HR PRN IV PAIN; Start 10/12/16 at 19:30; Stop 10/13/16 at 19:29; Status DC Sodium Chloride (Iv Sodium Chloride 0.9% 1000ml Bag) 1,000 ml @ 75 mls/hr [id number] IV Last administered on 10/13/16 13:10; Start 10/12/16 at 19:23; Stop 10/13/16 at 19:22; Status DC Acetaminophen (Tylenol) 650 mg PRN Q4HRS PRN PO FEVER; Start 10/12/16 at 19:30 ; Stop 10/13/16 at 19:29; Status DC Albuterol/ Ipratropium (Duoneb) 3 ml RTQID NEB Last administered on 10/13/16 07:01; Start 10/12/16 at 20:00; Stop 10/13/16 at 16:05; Status DC Furosemide (Lasix) 20 mg 1X PRN PRN IV Blood transfusion; Start 10/12/16 at 19: 30; Stop 10/13/16 at 19:29; Status DC Methylprednisolone Sodium Succinate (Solu-Medrol 40mg Vial) 60 mg Q6HRS IV Last administered on 10/14/16 05:37; Start 10/13/16 at 00:00; Stop 10/14/16 at 08:36; Status DC Famotidine (Pepcid) 10 mg HS PO Last administered on 10/13/16 20:22; Start at 00:00 Gabapentin (Neurontin) 300 mg BID PO Last administered on 10/14/16 08:07; Start 10/13/16 at 00:00; Stop 10/14/16 at 08:36; Status DC Acetaminophen/ Hydrocodone Bitart (Lortab 7.5/325) 1 tab PRN Q6HRS PRN PO PAIN Last administered on 10/13/16 00:29; Start 10/12/16 at 23:45 Guaifenesin (Mucinex) 600 mg PRN BID PRN PO cough Last administered on 00:29; Start 10/12/16 at 23:45 Apixaban (Eliquis) 10 mg DAILY PO ; Start 10/14/16 at 09:00; Stop 10/14/16 at 09 :00; Status DC Aspirin (Children'S Aspirin) 81 mg DAILY PO Last administered on 10/13/16 10: 20; Start 10/13/16 at 09:30 Benzonatate (Tessalon Perle) 100 mg PRN DAILY PRN PO COUGH; Start 10/13/16 at 09:15; Stop 10/13/16 at 12:17; Status DC Diclofenac Sodium (Voltaren) 1 vish PRN QID PRN TP PAIN; Start 10/13/16 at 09:15 Guaifenesin (Mucinex) 600 mg BID PO Last administered on 10/14/16 08:07; Start 10/13/16 at 09:30 Hydrochlorothiazide (Microzide) 12.5 mg PRN DAILY PRN PO swelling; Start at 09:15 Albuterol/ Ipratropium (Duoneb) 3 ml RTQID IH Last administered on 10/13/16 11 :10; Start 10/13/16 at 09:30; Stop 10/13/16 at 11:43; Status DC Midodrine (Proamatine) 5 mg [id number] PO Last administered on 10/14/16 05:37; Start 10/13/16 at 13:00 Calcium/Vitamin D (Oscal D 500mg/ 200uts) 1 tab [id number] PO Last administered on 10/14/16 08:07; Start 10/13/16 at 09:30 Docusate Sodium (Colace) 100 mg DAILY PO ; Start 10/13/16 at 09:30; Status Cancel Pantoprazole Sodium (Protonix) 40 mg DAILYAC PO Last administered on 10/14/16 08:06; Start 10/13/16 at 11:30 Potassium Chloride (Klor-Con) 10 meq [id number] PO Last administered on 08:07; Start 10/14/16 at 08:00 Acetaminophen (Tylenol) 650 mg PRN Q6HRS PRN PO MILD PAIN / TEMP; Start at 09:15 Ondansetron HCl (Zofran) 4 mg PRN Q6HRS PRN IV NAUSEA/VOMITING; Start 10/13/16 at 09:15 Senna/Docusate Sodium (Senna Plus) 1 tab BID PO Last administered on 10/13/16 20:23; Start 10/13/16 at 09:30; Stop 10/14/16 at 08:46; Status DC Docusate Sodium (Colace) 100 mg BID PO Last administered on 10/13/16 20:23; Start 10/13/16 at 09:15; Stop 10/14/16 at 08:46; Status DC Magnesium Hydroxide (Milk Of Magnesia) 2,400 mg PRN Q12HR PRN PO CONSTIPATION; Start 10/13/16 at 09:15 Lactulose 20 gm PRN Q12HR PRN PO CONSTIPATION Last administered on 10/13/16 21 :52; Start 10/13/16 at 09:15 Albuterol/ Ipratropium (Duoneb) 3 ml RTQID NEB Last administered on 10/14/16 07:52; Start 10/13/16 at 12:00 Albuterol Sulfate (Ventolin Neb Soln) 2.5 mg PRN Q4HRS PRN NEB SHORTNESS OF BREATH; Start 10/13/16 at 09:15 Budesonide (Pulmicort) 0.5 mg RTBID NEB Last administered on 10/13/16 11:10; Start 10/13/16 at 09:30; Stop 10/13/16 at 14:22; Status DC Apixaban (Eliquis) 5 mg BID PO Last administered on 10/14/16 08:07; Start at 12:00 Polyethylene Glycol (miraLAX PACKET) 17 gm BID PO Last administered on 20:22; Start 10/13/16 at 12:00; Stop 10/14/16 at 08:46; Status DC Info (Anti-Coagulation Monitoring By Pharmacy) 1 each PRN DAILY PRN MC SEE COMMENTS; Start 10/13/16 at 11:45 Potassium Chloride 40 meq 40 meq 1X ONCE PO Last administered on 10/13/16 13: 09; Start 10/13/16 at 11:45; Stop 10/13/16 at 11:46; Status DC Magnesium Sulfate/ Dextrose (Magnesium Sulfate PREMIX 2GM) 50 ml @ 25 mls/hr 1X ONCE IV Last administered on 10/13/16 13:10; Start 10/13/16 at 12:00; Stop 10/13/16 at 13:59; Status DC Benzonatate (Tessalon Perle) 100 mg PRN DAILY PRN PO COUGH Last administered on 10/13/16 21:58; Start 10/13/16 at 12:30 Budesonide (Pulmicort) 0.5 mg RTBID NEB Last administered on 10/14/16 07:52; Start 10/13/16 at 20:00 Diphenhydramine HCl (Benadryl) 25 mg PRN QHS PRN PO INSOMNIA Last administered on 10/13/16 21:58; Start 10/13/16 at 20:00 Calcium/Vitamin D 1 tab 1 tab STK-MED ONCE .ROUTE ; Start 10/14/16 at 07:46; Stop 10/14/16 at 07:47; Status DC Iron Sucrose/ Sodium Chloride (Venofer/Iv Sodium Chloride 0.9% 100ml) 110 ml @ 55 mls/hr DAILY IV Last administered on 10/14/16 10:02; Start 10/14/16 at 09: 00; Stop 10/18/16 at 10:00 Methylprednisolone Sodium Succinate (Solu-Medrol 40mg Vial) 60 mg TID IV ; Start 10/14/16 at 14:00 Doxycycline Hyclate (Vibra-Tab) 100 mg BID PO Last administered on 3/24/17at 10 :01; Start 10/14/16 at 09:00 Docusate Sodium (Colace) 100 mg PRN BID PRN PO CONSTIPATION; Start 10/14/16 at 21:00 Polyethylene Glycol (miraLAX PACKET) 17 gm PRN BID PRN PO CONSTIPATION; Start 10/14/16 at 21:00 Senna/Docusate Sodium (Senna Plus) 1 tab PRN BID PRN PO CONSTIPATION; Start at 21:00 Gabapentin (Neurontin) 300 mg TID PO ; Start 10/14/16 at 14:00 Active Scripts Active Prednisone 10 Mg Tablet 10 Mg PO DAILY take 3 tabs daily for 3 dys, then take 2 tabs daily for 3 days, then take 1 tab daily for 3 days, then take 1/2 tab daily for 2 days. Mucinex (Guaifenesin) 600 Mg Tablet.er 600 Mg PO BID 7 Days Reported Aspirin 81 Mg Tab.chew 1 Tab PO DAILY Gabapentin 300 Mg Capsule 300 Mg PO BID Voltaren (Diclofenac Sodium) 100 Gm Gel..gram. 1 Gm TP QID PRN Stool Softener (Docusate Sodium) 100 Mg Tablet 100 Mg PO DAILY Hydrocodone-Apap 7.5-325 (Hydrocodone Bit/Acetaminophen) 1 Each Tablet 1 Tab PO PRN Q6HRS PRN Benzonatate 100 Mg Capsule 100 Mg PO DAILY PRN Citracal + D Er Tablet (Calcium Carb & Cit/Vitamin D3) 1 Each Tablet.er 1 Each PO DAILY Hydrochlorothiazide Capsule (Hydrochlorothiazide) 12.5 Mg Capsule 1 Cap PO DAILY PRN Prednisone 10 Mg Tablet 10 Mg PO DAILY Midodrine Hcl 5 Mg Tablet 5 Mg PO TID Eliquis (Apixaban) 5 Mg Tablet 10 Mg PO DAILY Potassium Chloride 10 Meq Tablet.er 10 Meq PO QODAY Albuterol Sulfate Neb Soln (Albuterol Sulfate) 0.63 Mg/3 Ml Vial.neb 1 Vial NEB PRN TID PRN Pepcid (Famotidine) 20 Mg Tablet 10 Mg PO HS Duoneb 0.5-3(2.5) Mg/3 Ml (Albuterol/Ipratropium) 3 Ml Ampul.neb 3 Ml IH QID Omeprazole 20 Mg Capsule.dr 1 Cap PO DAILY Vitals/I & O Vital Sign - Last 24 Hours 10/13/16 10/13/16 10/13/16 10/13/16 11:00 11:15 13:09 15:00 Temp 98.5 97.6 98.5 97.6 Pulse 88 88 86 Resp B/P 147/75 147/75 124/66 Pulse Ox 97 95 O2 Delivery Room Air Nasal Cannula Nasal Cannula O2 Flow Rate 3.0 3.0 10/13/16 10/13/16 10/13/16 10/13/16 15:23 17:38 19:00 20:00 Temp 98.5 98.5 Pulse 86 103 Resp 20 B/P 124/66 144/75 Pulse Ox 94 O2 Delivery Nasal Cannula Nasal Cannula Nasal Cannula O2 Flow Rate 3.0 3.0 10/13/16 10/13/16 10/14/16 10/14/16 20:10 23:02 04:45 05:37 Temp 98.3 98.3 Pulse 99 Resp 20 B/P 144/72 144/72 Pulse Ox 90 98 O2 Delivery Nasal Cannula Room Air Nasal Cannula O2 Flow Rate 3.0 3.0 10/14/16 07:50 Temp 97.7 97.7 Pulse 94 Resp 20 B/P 118/54 Pulse Ox 98 O2 Delivery Nasal Cannula O2 Flow Rate 4.0 Intake and Output 10/13/16 10/13/16 10/14/16 15:00 23:00 07:00 Intake Total 840 ml 920 ml 550 ml Output Total 200 ml 950 ml 401 ml Balance 640 ml -30 ml 149 ml JORDI ROE MD Oct 14, 2016 10:08
[2016-10-14 10:48] VITALS: BP 141/67
[2016-10-14] MEDS: CYANOCOBALAMIN (VITAMIN B-12) 1,000 MCG TABLET. PO SCH (12:00)
--- NOTE | 2016-10-14 12:31 | PDOC ---
PULMONARY PROGRESS NOTES Subjective is weak, has sob, cough, has pain all over, no runny nose. Vitals Vital Signs Date Time Temp Pulse Resp B/P Pulse Ox O2 Delivery O2 Flow Rate FiO2 10/14/16 11:31 Nasal Cannula 3.0 10/14/16 10:48 97.8 95 24 141/67 98 97.8 Comments ros as mentioned as above other sys other moreno neg General: Alert, Oriented X4, No acute distress HEENT: Other (nc at perrl, throat nose clear) Lungs: Wheezing (bl mild, tight bs) Cardiovascular: S1, S2 Abdomen: Soft, Non-tender Extremities: Other Skin: Warm, Dry Labs Laboratory Tests Test 10/12/16 18:00 10/12/16 19:40 10/13/16 03:55 10/14/16 01:25 White Blood Count 8.2x10^3/uL (4.0-11.0) 8.6x10^3/uL (4.0-11.0) Red Blood Count 3.46x10^6/uL (3.50-5.40) 4.04x10^6/uL (3.50-5.40) Hemoglobin 7.1g/dL (12.0-15.5) 9.2g/dL (12.0-15.5) Hematocrit 24.0% (36.0-47.0) 29.2% (36.0-47.0) Mean Corpuscular Volume 69fL (79-100) 72fL (79-100) Mean Corpuscular Hemoglobin 21pg (25-35) 23pg (25-35) Mean Corpuscular Hemoglobin Concent 30g/dL (31-37) 32g/dL (31-37) Red Cell Distribution Width 18.7% (11.5-14.5) 21.5% (11.5-14.5) Platelet Count 251x10^3/uL (140-400) 245x10^3/uL (140-400) Neutrophils (%) (Auto) 64% (31-73) 93% (31-73) Lymphocytes (%) (Auto) 24% (24-48) 6% (24-48) Monocytes (%) (Auto) 10% (0-9) 1% (0-9) Eosinophils (%) (Auto) 2% (0-3) 0% (0-3) Basophils (%) (Auto) 1% (0-3) 0% (0-3) Neutrophils # (Auto) 5.2x10^3uL (1.8-7.7) 8.1x10^3uL (1.8-7.7) Lymphocytes # (Auto) 2.0x10^3/uL (1.0-4.8) 0.5x10^3/uL (1.0-4.8) Monocytes # (Auto) 0.8x10^3/uL (0.0-1.1) 0.1x10^3/uL (0.0-1.1) Eosinophils # (Auto) 0.1x10^3/uL (0.0-0.7) 0.0x10^3/uL (0.0-0.7) Basophils # (Auto) 0.0x10^3/uL (0.0-0.2) 0.0x10^3/uL (0.0-0.2) Platelet Estimate Adequate (ADEQUATE) Adequate (ADEQUATE) Polychromasia Slight Hypochromasia Mod Mod Poikilocytosis Slight Anisocytosis Slight Mod Microcytosis Mod Slight Tear Drop Cells Occ Ovalocytes Occ Sodium Level 144mmol/L (136-145) 143mmol/L (136-145) Potassium Level 2.7mmol/L (3.5-5.1) 3.4mmol/L (3.5-5.1) Chloride Level 102mmol/L (98-107) 103mmol/L (98-107) Carbon Dioxide Level 32mmol/L (21-32) 30mmol/L (21-32) Anion Gap 10 (6-14) 10 (6-14) Blood Urea Nitrogen 15mg/dL (7-20) 14mg/dL (7-20) Creatinine 1.1mg/dL (0.6-1.0) 1.0mg/dL (0.6-1.0) Estimated GFR (Cockcroft-Gault) 48.3 53.9 BUN/Creatinine Ratio 14 (6-20) Glucose Level 114mg/dL (70-99) 201mg/dL (70-99) Calcium Level 8.9mg/dL (8.5-10.1) 8.5mg/dL (8.5-10.1) Magnesium Level 1.7mg/dL (1.8-2.4) Total Bilirubin 0.3mg/dL (0.2-1.0) Aspartate Amino Transf (AST/SGOT) 19U/L (15-37) Alanine Aminotransferase (ALT/SGPT) 20U/L (14-59) Alkaline Phosphatase 71U/L (46-116) Creatine Kinase 115U/L (26-192) Creatine Kinase MB (Mass) 0.6ng/mL (0.0-3.6) Creatine Kinase MB Relative Index 0.5% (0-4) Troponin I Quantitative < 0.017ng/mL (0.000-0.055) TZ-Vfd-N-Type Natriuretic Peptide 128pg/mL (0-449) Total Protein 6.7g/dL (6.4-8.2) Albumin 3.2g/dL (3.4-5.0) Albumin/Globulin Ratio 0.9 (1.0-1.7) Influenza Type A Antigen Negative (NEGATIVE) Influenza Type B Antigen Negative (NEGATIVE) Segmented Neutrophils % 95% (35-66) Lymphocytes % 5% (24-48) Stool Occult Blood Negative (NEG) Test 10/14/16 03:55 White Blood Count 14.1x10^3/uL (4.0-11.0) Red Blood Count 3.65x10^6/uL (3.50-5.40) Hemoglobin 8.3g/dL (12.0-15.5) Hematocrit 26.9% (36.0-47.0) Mean Corpuscular Volume 74fL (79-100) Mean Corpuscular Hemoglobin 23pg (25-35) Mean Corpuscular Hemoglobin Concent 31g/dL (31-37) Red Cell Distribution Width 21.6% (11.5-14.5) Platelet Count 233x10^3/uL (140-400) Neutrophils (%) (Auto) 92% (31-73) Lymphocytes (%) (Auto) 5% (24-48) Monocytes (%) (Auto) 3% (0-9) Eosinophils (%) (Auto) 0% (0-3) Basophils (%) (Auto) 0% (0-3) Neutrophils # (Auto) 13.0x10^3uL (1.8-7.7) Lymphocytes # (Auto) 0.7x10^3/uL (1.0-4.8) Monocytes # (Auto) 0.5x10^3/uL (0.0-1.1) Eosinophils # (Auto) 0.0x10^3/uL (0.0-0.7) Basophils # (Auto) 0.0x10^3/uL (0.0-0.2) Sodium Level 145mmol/L (136-145) Potassium Level 4.1mmol/L (3.5-5.1) Chloride Level 106mmol/L (98-107) Carbon Dioxide Level 29mmol/L (21-32) Anion Gap 10 (6-14) Blood Urea Nitrogen 21mg/dL (7-20) Creatinine 1.0mg/dL (0.6-1.0) Estimated GFR (Cockcroft-Gault) 53.9 Glucose Level 173mg/dL (70-99) Calcium Level 8.8mg/dL (8.5-10.1) Phosphorus Level 2.9mg/dL (2.6-4.7) Magnesium Level 2.5mg/dL (1.8-2.4) Iron Level 17ug/dL (50-170) Total Iron Binding Capacity 333ug/dL (250-450) Iron Saturation 5% (15-34) Ferritin 11ng/mL (8-252) Vitamin B12 Level 305pg/mL (247-911) Serum Folate 5.70ng/ml (3.2-20.0) Laboratory Tests Test 10/14/16 01:25 10/14/16 03:55 Stool Occult Blood Negative (NEG) White Blood Count 14.1x10^3/uL (4.0-11.0) Red Blood Count 3.65x10^6/uL (3.50-5.40) Hemoglobin 8.3g/dL (12.0-15.5) Hematocrit 26.9% (36.0-47.0) Mean Corpuscular Volume 74fL (79-100) Mean Corpuscular Hemoglobin 23pg (25-35) Mean Corpuscular Hemoglobin Concent 31g/dL (31-37) Red Cell Distribution Width 21.6% (11.5-14.5) Platelet Count 233x10^3/uL (140-400) Neutrophils (%) (Auto) 92% (31-73) Lymphocytes (%) (Auto) 5% (24-48) Monocytes (%) (Auto) 3% (0-9) Eosinophils (%) (Auto) 0% (0-3) Basophils (%) (Auto) 0% (0-3) Neutrophils # (Auto) 13.0x10^3uL (1.8-7.7) Lymphocytes # (Auto) 0.7x10^3/uL (1.0-4.8) Monocytes # (Auto) 0.5x10^3/uL (0.0-1.1) Eosinophils # (Auto) 0.0x10^3/uL (0.0-0.7) Basophils # (Auto) 0.0x10^3/uL (0.0-0.2) Sodium Level 145mmol/L (136-145) Potassium Level 4.1mmol/L (3.5-5.1) Chloride Level 106mmol/L (98-107) Carbon Dioxide Level 29mmol/L (21-32) Anion Gap 10 (6-14) Blood Urea Nitrogen 21mg/dL (7-20) Creatinine 1.0mg/dL (0.6-1.0) Estimated GFR (Cockcroft-Gault) 53.9 Glucose Level 173mg/dL (70-99) Calcium Level 8.8mg/dL (8.5-10.1) Phosphorus Level 2.9mg/dL (2.6-4.7) Magnesium Level 2.5mg/dL (1.8-2.4) Iron Level 17ug/dL (50-170) Total Iron Binding Capacity 333ug/dL (250-450) Iron Saturation 5% (15-34) Ferritin 11ng/mL (8-252) Vitamin B12 Level 305pg/mL (247-911) Serum Folate 5.70ng/ml (3.2-20.0) Medications Active Scripts Medications Dose Route/Sig Days Date Category Dose Instructions Aspirin 81 Mg Tab.chew 1 Tab PO DAILY 10/12/16 Reported Prednisone 10 Mg Tablet 10 Mg PO DAILY 07/11/16 Rx take 3 tabs daily for 3 dys, then take 2 tabs daily for 3 days, then take 1 tab daily for 3 days, then take 1/2 tab daily for 2 days. Gabapentin 300 Mg Capsule 300 Mg PO BID 07/06/16 Reported Voltaren (Diclofenac Sodium) 100 Gm Gel..gram. 1 Gm TP QID PRN 06/20/16 Reported Stool Softener (Docusate Sodium) 100 Mg Tablet 100 Mg PO DAILY 06/20/16 Reported Hydrocodone-Apap 7.5-325 (Hydrocodone Bit/Acetaminophen) 1 Each Tablet 1 Tab PO PRN Q6HRS PRN 06/20/16 Reported Benzonatate 100 Mg Capsule 100 Mg PO DAILY PRN 06/20/16 Reported Citracal + D Er Tablet (Calcium Carb & Cit/Vitamin D3) 1 Each Tablet.er 1 Each PO DAILY 06/20/16 Reported Hydrochlorothiazide Capsule (Hydrochlorothiazide) 12.5 Mg Capsule 1 Cap PO DAILY PRN 06/20/16 Reported Prednisone 10 Mg Tablet 10 Mg PO DAILY 06/20/16 Reported Mucinex (Guaifenesin) 600 Mg Tablet.er 600 Mg PO BID 7 04/22/16 Rx Midodrine Hcl 5 Mg Tablet 5 Mg PO TID 11/24/15 Reported Eliquis (Apixaban) 5 Mg Tablet 10 Mg PO DAILY 11/24/15 Reported Potassium Chloride 10 Meq Tablet.er 10 Meq PO QODAY 11/24/15 Reported Albuterol Sulfate Neb Soln (Albuterol Sulfate) 0.63 Mg/3 Ml Vial.neb 1 Vial NEB PRN TID PRN 09/25/15 Reported Pepcid (Famotidine) 20 Mg Tablet 10 Mg PO HS 07/29/15 Reported Duoneb 0.5-3(2.5) Mg/3 Ml (Albuterol/Ipratropium) 3 Ml Ampul.neb 3 Ml IH QID 03/24/15 Reported Omeprazole 20 Mg Capsule. 1 Cap PO DAILY 02/27/14 Reported Comments cxr reviewed. Impression . IMPRESSION: 1. Dyspnea secondary to combination of acute exacerbation of chronic obstructive pulmonary disease, anemia and increasing abdominal distension and bloating resulting in reduced lung compliance and anemia 2. Chronic respiratory failure, on home oxygen at 3-4 liters. Oxygen requirement has not changed. 3. No definite pneumonia seen. 4. History of recurrent deep vein thrombosis, on chronic anticoagulation with Eliquis. 5. Weakness ,suspect due to anemia and ? steroid induced myopathy. Plan . RECOMMENDATIONS: 1. Continue with present oxygen. 2. Continue bronchodilators. 3. The patient's dyspnea and weakness is probably related to anemia. She used to be on chronic steroids. She said she stopped 5 days ago. Cannot exclude steroid-induced myopathy and it is reasonable to keep her off for now. 4. Follow GI recommendations. She may need EGD and workup of anemia along with constipation workup. 5. Anticoagulation can be withheld if invasive GI procedures are required. pt ot discussed w pt. IFEANYI NICHOLAS MD Oct 14, 2016 12:31
--- NOTE | 2016-10-14 12:58 | PDOC ---
Subjective: Subjective: "I pooped all night." Can't tell me how many times or consistency. Now however, passing "hard balls again." Bloating still a concern but a little improved. Biggest bother today is weakness and neuropathy. Objective: Objective: Per RN - formed stools after lactulose. Vital Signs: Vital Signs Date Time Temp Pulse Resp B/P Pulse Ox O2 Delivery O2 Flow Rate FiO2 10/14/16 11:31 Nasal Cannula 3.0 10/14/16 10:48 97.8 95 24 141/67 98 97.8 Labs: Laboratory Tests Test 10/14/16 01:25 10/14/16 03:55 Stool Occult Blood Negative White Blood Count 14.1x10^3/uL Red Blood Count 3.65x10^6/uL Hemoglobin 8.3g/dL Hematocrit 26.9% Mean Corpuscular Volume 74fL Mean Corpuscular Hemoglobin 23pg Mean Corpuscular Hemoglobin Concent 31g/dL Red Cell Distribution Width 21.6% Platelet Count 233x10^3/uL Neutrophils (%) (Auto) 92% Lymphocytes (%) (Auto) 5% Monocytes (%) (Auto) 3% Eosinophils (%) (Auto) 0% Basophils (%) (Auto) 0% Neutrophils # (Auto) 13.0x10^3uL Lymphocytes # (Auto) 0.7x10^3/uL Monocytes # (Auto) 0.5x10^3/uL Eosinophils # (Auto) 0.0x10^3/uL Basophils # (Auto) 0.0x10^3/uL Sodium Level 145mmol/L Potassium Level 4.1mmol/L Chloride Level 106mmol/L Carbon Dioxide Level 29mmol/L Anion Gap 10 Blood Urea Nitrogen 21mg/dL Creatinine 1.0mg/dL Estimated GFR (Cockcroft-Gault) 53.9 Glucose Level 173mg/dL Calcium Level 8.8mg/dL Phosphorus Level 2.9mg/dL Magnesium Level 2.5mg/dL Iron Level 17ug/dL Total Iron Binding Capacity 333ug/dL Iron Saturation 5% Ferritin 11ng/mL Vitamin B12 Level 305pg/mL Serum Folate 5.70ng/ml PE: GEN: NAD, up to chair LUNGS: wheezing, tight, nasal cannula HEART: RRR ABD: NABS, S/ND/NT NEURO/PSYCH: A & O 3 A/P: Weakness, COPD, peripheral neuropathy SCAR -now on IV iron -on Eliquis for A Fib w/ h/o DVTs, rare NSAIDs Constipation, bloating, GERD -took lactulose last night, also has Miralax ordered, reports normal colonoscopy years ago -on PPI and H2 albin, reports previous EGD showed hiatal hernia -- Continue PPI and Miralax. Await improvement in resp status prior to EGD/ colonoscopy. DEVAN NEIL Oct 14, 2016 12:58
[2016-10-14 15:14] VITALS: BP 121/61
--- NOTE | 2016-10-14 17:00 | CARD ---
APPROVED REPORT EXAM: Two-dimensional and M-mode echocardiogram with Doppler and color Doppler. Other Information Quality : Fair INDICATION Congestive Heart Failure 2D DIMENSIONS RVDd3.1 (2.9-3.5cm)Left Atrium(2D)3.8 (1.6-4.0cm) IVSd1.1 (0.7-1.1cm)Aortic Root(2D)2.8 (2.0-3.7cm) LVDd4.7 (3.9-5.9cm)LVOT Diameter2.1 (1.8-2.4cm) PWd1.1 (0.7-1.1cm)LVDs3.1 (2.5-4.0cm) FS (%) 30.0 %SV64.9 ml LVEF(%)60.0 (>50%) Aortic Valve AoV Peak Cain.156.6cm/sAoV VTI30.0cm AO Peak GR.9.8mmHgLVOT VTI 26.31cm AO Mean GR.5mmHgAVA (VTI)2.90cm2 Mitral Valve MV E Suysgmyr815.5cm/sMV DECEL [id number] MV A Uftitgxp680.5cm/sE/A Ratio1.2 TDI Lateral E' P. V13.39cm/sMedial E' P. V6.76cm/s E/Lateral E'10.0E/Medial E'19.7 Pulmonary Vein S1 Arxmmwji32.2cm/sS2 Upbefule26.31cm/s D2 Yidoczod84.3cm/s LEFT VENTRICLE The left ventricle is normal size. There is normal left ventricular wall thickness. The left ventricu lar systolic function is normal and the ejection fraction is within normal range. The Ejection Fracti on is 55-60%. There is normal LV segmental wall motion. RIGHT VENTRICLE The right ventricle is normal size. The right ventricular systolic function is normal. ATRIA The left atrium size is normal. The right atrium size is normal. The interatrial septum is intact wit h no evidence for an atrial septal defect or patent foramen ovale as noted on 2-D or Doppler imaging. AORTIC VALVE The aortic valve is calcified but opens well. Doppler and Color Flow revealed no significant aortic r egurgitation. There is no significant aortic valvular stenosis. MITRAL VALVE The mitral valve is normal in structure and function. There is no evidence of mitral valve prolapse. There is no mitral valve stenosis. Doppler and Color Flow revealed no mitral valve regurgitation note d. TRICUSPID VALVE The tricuspid valve is normal in structure and function. Doppler and Color Flow revealed no tricuspid valve regurgitation noted. There is no tricuspid valve stenosis. PULMONIC VALVE Doppler and Color Flow revealed no pulmonic valvular regurgitation. There is no pulmonic valvular lucio nosis. GREAT VESSELS The aortic root is normal in size. The ascending aorta is normal in size. The IVC was not visualized. PERICARDIAL EFFUSION A pericardial fat pad is present. There is no evidence of significant pericardial effusion. Critical Notification Critical Value: No <Conclusion> The left ventricular systolic function is normal and the ejection fraction is within normal range. Th e Ejection Fraction is 55-60%. There is normal LV segmental wall motion.
[2016-10-14 19:00] VITALS: BP 167/71
[2016-10-14] MEDS: DIPHENHYDRAMINE HCL 25 MG CAPSULE PO PRN (20:52)
[2016-10-14] MEDS: FAMOTIDINE 20 MG TABLET. PO SCH (20:52)
[2016-10-14] MEDS: BENZONATATE 100 MG CAPSULE. PO PRN (20:53)
[2016-10-14] MEDS ORDERED: DOCUSATE SODIUM 100 MG CAPSULE PO PRN (21:00)
[2016-10-14] MEDS ORDERED: SENNOSIDES/DOCUSATE 8.6/50MG TABLET. PO PRN (21:00)
[2016-10-14] MEDS ORDERED: POLYETHYLENE GLYCOL 3350 17 GM PACKET. PO PRN (21:00)
[2016-10-14 23:24] VITALS: BP 164/70
[2016-10-15] MEDS: ALBUTEROL SULFATE 2.5 MG/3 ML NEBU. NEB PRN ×2 (02:24→09:23)
[2016-10-15 03:40] VITALS: BP 148/57
[2016-10-15] MEDS: IPRATRPIUM/ALBUTEROL 0.5/2.5MG 3 ML NEBU. NEB SCH ×3 (06:48→20:01)
[2016-10-15] MEDS: BUDESONIDE 0.5 MG/2 ML NEBU. NEB SCH (06:48)
[2016-10-15 07:00] VITALS: BP 126/66
[2016-10-15] MEDS: MIDODRINE 5 MG TABLET PO SCH ×3 (07:00→17:50)
[2016-10-15] MEDS ORDERED: CALCIUM CARB/VIT D3 500/200 TABLET. PO SCH (08:00)
--- NOTE | 2016-10-15 08:40 | PDOC ---
PULMONARY PROGRESS NOTES Subjective is weak, has sob, better, has cough not able to cough up sputum, has pain all over, no runny nose. Vitals Vital Signs Date Time Temp Pulse Resp B/P Pulse Ox O2 Delivery O2 Flow Rate FiO2 10/15/16 07:00 97.6 85 24 126/66 94 Nasal Cannula 4.0 97.6 Comments ros as mentioned as above other sys other moreno neg General: Alert, Oriented X4, No acute distress HEENT: Other (nc at perrl, throat nose clear) Lungs: Wheezing (bl mild, tight bs) Cardiovascular: S1, S2 Abdomen: Soft, Non-tender Extremities: Other Skin: Warm, Dry Labs Laboratory Tests Test 10/14/16 01:25 10/14/16 03:55 Stool Occult Blood Negative (NEG) White Blood Count 14.1x10^3/uL (4.0-11.0) Red Blood Count 3.65x10^6/uL (3.50-5.40) Hemoglobin 8.3g/dL (12.0-15.5) Hematocrit 26.9% (36.0-47.0) Mean Corpuscular Volume 74fL (79-100) Mean Corpuscular Hemoglobin 23pg (25-35) Mean Corpuscular Hemoglobin Concent 31g/dL (31-37) Red Cell Distribution Width 21.6% (11.5-14.5) Platelet Count 233x10^3/uL (140-400) Neutrophils (%) (Auto) 92% (31-73) Lymphocytes (%) (Auto) 5% (24-48) Monocytes (%) (Auto) 3% (0-9) Eosinophils (%) (Auto) 0% (0-3) Basophils (%) (Auto) 0% (0-3) Neutrophils # (Auto) 13.0x10^3uL (1.8-7.7) Lymphocytes # (Auto) 0.7x10^3/uL (1.0-4.8) Monocytes # (Auto) 0.5x10^3/uL (0.0-1.1) Eosinophils # (Auto) 0.0x10^3/uL (0.0-0.7) Basophils # (Auto) 0.0x10^3/uL (0.0-0.2) Sodium Level 145mmol/L (136-145) Potassium Level 4.1mmol/L (3.5-5.1) Chloride Level 106mmol/L (98-107) Carbon Dioxide Level 29mmol/L (21-32) Anion Gap 10 (6-14) Blood Urea Nitrogen 21mg/dL (7-20) Creatinine 1.0mg/dL (0.6-1.0) Estimated GFR (Cockcroft-Gault) 53.9 Glucose Level 173mg/dL (70-99) Calcium Level 8.8mg/dL (8.5-10.1) Phosphorus Level 2.9mg/dL (2.6-4.7) Magnesium Level 2.5mg/dL (1.8-2.4) Iron Level 17ug/dL (50-170) Total Iron Binding Capacity 333ug/dL (250-450) Iron Saturation 5% (15-34) Ferritin 11ng/mL (8-252) Vitamin B12 Level 305pg/mL (247-911) Serum Folate 5.70ng/ml (3.2-20.0) Medications Active Scripts Medications Dose Route/Sig Days Date Category Dose Instructions Aspirin 81 Mg Tab.chew 1 Tab PO DAILY 10/12/16 Reported Prednisone 10 Mg Tablet 10 Mg PO DAILY 07/11/16 Rx take 3 tabs daily for 3 dys, then take 2 tabs daily for 3 days, then take 1 tab daily for 3 days, then take 1/2 tab daily for 2 days. Gabapentin 300 Mg Capsule 300 Mg PO BID 07/06/16 Reported Voltaren (Diclofenac Sodium) 100 Gm Gel..gram. 1 Gm TP QID PRN 06/20/16 Reported Stool Softener (Docusate Sodium) 100 Mg Tablet 100 Mg PO DAILY 06/20/16 Reported Hydrocodone-Apap 7.5-325 (Hydrocodone Bit/Acetaminophen) 1 Each Tablet 1 Tab PO PRN Q6HRS PRN 06/20/16 Reported Benzonatate 100 Mg Capsule 100 Mg PO DAILY PRN 06/20/16 Reported Citracal + D Er Tablet (Calcium Carb & Cit/Vitamin D3) 1 Each Tablet.er 1 Each PO DAILY 06/20/16 Reported Hydrochlorothiazide Capsule (Hydrochlorothiazide) 12.5 Mg Capsule 1 Cap PO DAILY PRN 06/20/16 Reported Prednisone 10 Mg Tablet 10 Mg PO DAILY 06/20/16 Reported Mucinex (Guaifenesin) 600 Mg Tablet.er 600 Mg PO BID 7 04/22/16 Rx Midodrine Hcl 5 Mg Tablet 5 Mg PO TID 11/24/15 Reported Eliquis (Apixaban) 5 Mg Tablet 10 Mg PO DAILY 11/24/15 Reported Potassium Chloride 10 Meq Tablet.er 10 Meq PO QODAY 11/24/15 Reported Albuterol Sulfate Neb Soln (Albuterol Sulfate) 0.63 Mg/3 Ml Vial.neb 1 Vial NEB PRN TID PRN 09/25/15 Reported Pepcid (Famotidine) 20 Mg Tablet 10 Mg PO HS 07/29/15 Reported Duoneb 0.5-3(2.5) Mg/3 Ml (Albuterol/Ipratropium) 3 Ml Ampul.neb 3 Ml IH QID 03/24/15 Reported Omeprazole 20 Mg Capsule. 1 Cap PO DAILY 02/27/14 Reported Comments cxr reviewed. Impression . IMPRESSION: 1. Dyspnea secondary to combination of acute exacerbation of chronic obstructive pulmonary disease, anemia and increasing abdominal distension and bloating resulting in reduced lung compliance and anemia 2. Chronic respiratory failure, on home oxygen at 3-4 liters. Oxygen requirement has not changed. 3. No definite pneumonia seen. 4. History of recurrent deep vein thrombosis, on chronic anticoagulation with Eliquis. 5. Weakness ,suspect due to anemia and ? steroid induced myopathy. Plan . RECOMMENDATIONS: 1. Continue with oxygen. 2. Continue bronchodilators. 3. The patient's dyspnea and weakness is probably related to anemia. She used to be on chronic steroids. She said she stopped 5 days ago. Cannot exclude steroid-induced myopathy 4. Follow GI recommendations. She may need EGD and workup of anemia along with constipation workup. 5. Anticoagulation can be withheld if invasive GI procedures are required. 6. pt ot 7. change solumedrol to prednisone discussed w pt. IFEANYI NICHOLAS MD Oct 15, 2016 08:40
[2016-10-15] MEDS: IRON SUCROSE COMPLEX 200 MG in IV NORMAL SALINE 100ML 100 ML IV SCH (09:00)
[2016-10-15] MEDS ORDERED: PREDNISONE 20 MG TABLET PO SCH (09:00)
--- NOTE | 2016-10-15 09:29 | RAD ---
Single AP view of the chest with comparison of 10/12/2016. Indication: CHF. Findings: The heart is enlarged but stable. Left subclavian pacemaker is reidentified. No pneumothorax. Trace left costophrenic angle effusion versus prominent epicardial fat pad is reidentified. Pulmonary vascular congestion persists. Impression: 1. Stable examination. Possible trace left costophrenic angle effusion versus prominent epicardial fat pad. PA and lateral views may be of benefit for further evaluation.
--- NOTE | 2016-10-15 09:35 | EKG ---
[facility] [address] [place] [address] Test Date: 2016-10-15 Test Time: 08:29:14 Pat Name: BERNA BRAVO Department: Room: 548 1 Gender: F Supply Room Clerk: : 1940 Requested By: JORDI ROE Order Number: [id number] Reading MD: Measurements Intervals Alba Rate: 81 P: 60 ND: 160 QRS: -20 QRSD: 124 T: 16 QT: 402 QTc: 473 Interpretive Statements SINUS RHYTHM LEFTWARD AXIS RIGHT BUNDLE BRANCH BLOCK ABNORMAL ECG RI6.01 Unconfirmed report Compared to ECG 07/04/2016 19:35:02 Left-axis deviation now present Sinus tachycardia no longer present Left anterior fascicular block no longer present Bifascicular block no longer present Right ventricular hypertrophy no longer present Early repolarization no longer present
[2016-10-15] MEDS: GUAIFENESIN ER 600 MG TABLET.ER PO SCH ×2 (09:43→20:40)
[2016-10-15] MEDS: PANTOPRAZOLE 40 MG TABLET. PO SCH (09:43)
[2016-10-15] MEDS: DOXYCYCLINE HYCLATE 100 MG TABLET PO SCH ×2 (09:44→20:40)
[2016-10-15] MEDS: GABAPENTIN 300 MG CAPSULE. PO SCH ×3 (09:44→20:39)
[2016-10-15] MEDS: CYANOCOBALAMIN (VITAMIN B-12) 1,000 MCG TABLET. PO SCH (09:44)
[2016-10-15] MEDS: POTASSIUM CHLORIDE 10 MEQ TABLET.ER. PO SCH (09:44)
[2016-10-15] MEDS: APIXABAN 5 MG TABLET. PO SCH ×2 (09:44→20:40)
[2016-10-15] MEDS: ASPIRIN 81 MG TAB.CHEW PO SCH (09:46)
--- NOTE | 2016-10-15 09:50 | PDOC2 ---
ISAMAR HONEYCUTT MANAGER [employer] 10/15/16 0950: CARDIAC CONSULT DATE OF CONSULT Date of Consult DATE: 10/15/16 TIME: 09:47 REASON FOR CONSULT Reason for Consult: Chest pain REFERRING PHYSICIAN Referring Physician: Zachary SOURCE Source: Chart review, Patient HISTORY OF PRESENT ILLNESS HISTORY OF PRESENT ILLNESS This is a pleasant 76 yo female admitted for complains persistent weakness. She was then noted to be significantly anemic requiring 2 U PRBC. She has been evaluated by GI and also currently receiving Iron replacement. She was up on the recliner when lower sternal/epigastric region started hurting her sharp and stinging by description which dissipated in <20 minutes. This occurred 60-90 minutes post prandial. Reports no radiating discomfort, palpitations, her COPD is currently controlled and no SOA nor diaphoresis at that time. She is known to our group being seen by Dr. Campos at the office and known for SSS/PPM. She is also worried about her device since has not been check for a while. Currently she is CP free ad in no discomfort. Verbalized compliance with her cardiac meds PAST MEDICAL HISTORY Past Medical History Cardiovascular: AFIB (Paroxysmal), Hyperlipidemia, SSS, orthostasis Pulmonary: COPD and O2 dependent GI: GERD Psych: No pertinent hx Musculoskeletal: Osteoarthritis, Right leg DVT, falls with past one on 11/2015 sustaining elbow fracture (no surgical intervention) Rheumatologic: No pertinent hx Infectious disease: No pertinent hx ENT: No pertinent hx Renal/: No pertinent hx Endocrine: No pertinent hx Dermatology: No pertinent hx FAMILY HISTORY Family History Pacemaker ([facility]), Cataract Removal (bilateral), Hernia Repair, Total hip replacement (right), Hysterectomy, uterine suspension SOCIAL HISTORY Social History Smoke: <1 pack per day ALCOHOL: none Drugs: None Lives: with Family CURRENT MEDICATIONS CURRENT MEDICATIONS Current Medications Medications (Trade) Dose Ordered Sig/Ck Route PRN Reason Start Time Stop Time Status Last Admin Dose Admin Methylprednisolone Sodium Succinate (Solu-Medrol 40mg Vial) 60 mg TID IV 10/14/16 14:00 10/15/16 08:40 DC 10/14/16 20:53 Gabapentin (Neurontin) 300 mg TID PO 10/14/16 14:00 10/14/16 20:52 Cyanocobalamin (Vitamin B-12) 1,000 mcg DAILY PO 10/14/16 10:30 10/14/16 12:00 ALLERGIES ALLERGIES: Coded Allergies: Sulfa (Sulfonamide Antibiotics) (Verified Allergy, Intermediate, Hives, 06/08) ROS Review of System 14 point ROS evaluated with pertinent positives noted per hPI PHYSICAL EXAM General: Alert, Oriented X3, Cooperative, No acute distress HEENT: Atraumatic, Mucous membr. moist/pink Lungs: Other (diffuse wheeze) Heart: Regular rate (SR), Normal S1, Normal S2, No murmurs Abdomen: Soft, No tenderness Extremities: No cyanosis, No edema Skin: No breakdown, No significant lesion Neuro: Normal speech, Sensation intact Psych/Mental Status: Mental status NL, Mood NL MUSCULOSKELETAL: Osteoarthritic changes both hands VITALS VITALS Vital Signs Date Time Temp Pulse Resp B/P Pulse Ox O2 Delivery O2 Flow Rate FiO2 10/15/16 09:25 Nasal Cannula 3.0 10/15/16 07:00 97.6 85 24 126/66 94 97.6 ECHOCARDIOGRAM ECHOCARDIOGRAM <Conclusion> The left ventricular systolic function is normal and the ejection fraction is within normal range. The Ejection Fraction is 55-60%. There is normal LV segmental wall motion. DATE: 10/14/16 1700 ASSESSMENT/PLAN ASSESSMENT/PLAN 1. Atypical chest pain: significant for hiatal hernia/GERD. Doubt ACS. Suspect GI..Recent TTE with normal wall motion and EF. 2. Microcytic hypochromic anemia/weakness: initial Hgb 7.1 S/P PRBC 2U, GI following 3. PAFIB: EKG SR without acute changes. Tele SR without significant rhythm ectopies 4. SSS: PPM in situ ([facility] [employer]) 5. COPD: pulmonary following 6. Chronic diastolic CHF: compensated 7. HTN with hx of orthostasis: no antiHTN, on routine midodrine. 8. HLP 9. Hx of Left leg DVT: was placed on apixaban on 10/2015. Recommendation 1. Was placed on ASA in the past for stroke prevention instead of NOAC due to hx of cerebral arachnoid cyst. Apixaban was then initiated in 10/2015 due to DVT. Will defer any discontinuation to PCP if warranted. 2. Will interrogate device and will note AFIB burden. Currently on no antiarrhythmics nor rate controlling drugs. 3. Troponin series, continue with ECASA if no objection from GI. 4. Pt was taken off AV zeus blocking agents due to orthostasis and has not been on flecainide per clinician advice. 5. Will discuss with primary corner trimmer operator in regards to option to #2 and will likely carry this out as an outpt pending interrogation report. Problems: ERICKA PEARCE MD 10/15/16 1059: CARDIAC CONSULT ALLERGIES ALLERGIES: Coded Allergies: Sulfa (Sulfonamide Antibiotics) (Verified Allergy, Intermediate, Hives, 06/08) ASSESSMENT/PLAN ASSESSMENT/PLAN Pt. seen and examined. Agree with above GYMNASTICS INSTRUCTOR note. 76 y.o woman with non-cardiac chest pain Will have device interrogated Continue trop panels Suspect this is GI related. Supportive care No further CV testing unless trop positive or interrogation shows significat abn. Thx for consult. Problems: ISAMAR HONEYCUTT APRN Oct 15, 2016 09:50 ERICKA PEARCE MD Oct 15, 2016 10:59
[2016-10-15 11:00] VITALS: BP 140/68
--- NOTE | 2016-10-15 12:48 | PDOC ---
PROGRESS NOTES Chief Complaint Chief Complaint 1. generalized weakness 2/2 copd and anemia, possible steroid induced weakness 2. chronic anemia, iron deficiency likely 3. copd exacerbation 4. PAFIB 5. chronic OA 6.CHRONIC constipation 7. gerd 8. htn 9h/o bl leg dvt 10. PPM 11. HYPOkalemia 12. hypomagnesemia 13. smoking 14. bl leg neuropathy 15. atypical chest pain, 2/2 resp failure likely plan: 1. pulm, gi consulted, get card consult, check CE, echo done, normal, EKG ok. 2. cont duoneb, prednisone, mucinex, add doxy 3. cont home meds, on eliquis 4. add stool softner, hold for prn given diarrhea last night 5. replete k, mag labs tmr protonix PTOT ANEmia panel, replete IRON IV X5DS, add vitamin b12 daily add gabapentin tid hope dc tmr History of Present Illness History of Present Illness feels more cough, sob on 10/14, better now woke up with chest pain, no tenderness on NC 3L now as baseline weakness slightly better iron low Vitals Vitals Vital Signs Date Time Temp Pulse Resp B/P Pulse Ox O2 Delivery O2 Flow Rate FiO2 10/15/16 11:00 98.4 67 22 140/68 98 Room Air 98.4 10/15/16 09:25 3.0 Physical Exam General: Alert, Oriented X3, Cooperative, No acute distress Heart: Regular rate (SR), Normal S1, Normal S2, No murmurs Lungs: Wheezing (bl mild, tight bs) Abdomen: Soft, No tenderness Extremities: No cyanosis, No edema Skin: No breakdown, No significant lesion Labs LABS Laboratory Tests Test 10/15/16 09:48 Troponin I Quantitative 0.046ng/mL (0.000-0.055) Review of Systems Review of Systems no fever, chills, Assessment and Plan Assessmemt and Plan Problems Medical Problems: (1) COPD exacerbation Status: Acute (2) Hypokalemia Status: Acute (3) Symptomatic anemia Status: Acute Problems: Comment Review of Relevant I have reviewed the following items margaret (where applicable) has been applied. Labs Laboratory Tests Test 10/14/16 01:25 10/14/16 03:55 10/15/16 09:48 Stool Occult Blood Negative (NEG) White Blood Count 14.1x10^3/uL (4.0-11.0) Red Blood Count 3.65x10^6/uL (3.50-5.40) Hemoglobin 8.3g/dL (12.0-15.5) Hematocrit 26.9% (36.0-47.0) Mean Corpuscular Volume 74fL (79-100) Mean Corpuscular Hemoglobin 23pg (25-35) Mean Corpuscular Hemoglobin Concent 31g/dL (31-37) Red Cell Distribution Width 21.6% (11.5-14.5) Platelet Count 233x10^3/uL (140-400) Neutrophils (%) (Auto) 92% (31-73) Lymphocytes (%) (Auto) 5% (24-48) Monocytes (%) (Auto) 3% (0-9) Eosinophils (%) (Auto) 0% (0-3) Basophils (%) (Auto) 0% (0-3) Neutrophils # (Auto) 13.0x10^3uL (1.8-7.7) Lymphocytes # (Auto) 0.7x10^3/uL (1.0-4.8) Monocytes # (Auto) 0.5x10^3/uL (0.0-1.1) Eosinophils # (Auto) 0.0x10^3/uL (0.0-0.7) Basophils # (Auto) 0.0x10^3/uL (0.0-0.2) Sodium Level 145mmol/L (136-145) Potassium Level 4.1mmol/L (3.5-5.1) Chloride Level 106mmol/L (98-107) Carbon Dioxide Level 29mmol/L (21-32) Anion Gap 10 (6-14) Blood Urea Nitrogen 21mg/dL (7-20) Creatinine 1.0mg/dL (0.6-1.0) Estimated GFR (Cockcroft-Gault) 53.9 Glucose Level 173mg/dL (70-99) Calcium Level 8.8mg/dL (8.5-10.1) Phosphorus Level 2.9mg/dL (2.6-4.7) Magnesium Level 2.5mg/dL (1.8-2.4) Iron Level 17ug/dL (50-170) Total Iron Binding Capacity 333ug/dL (250-450) Iron Saturation 5% (15-34) Ferritin 11ng/mL (8-252) Vitamin B12 Level 305pg/mL (247-911) Serum Folate 5.70ng/ml (3.2-20.0) Troponin I Quantitative 0.046ng/mL (0.000-0.055) Laboratory Tests Test 10/15/16 09:48 Troponin I Quantitative 0.046ng/mL (0.000-0.055) Microbiology 10/12/16 Blood Culture - Preliminary, Resulted NO GROWTH AFTER 2 DAYS Medications Current Medications Sodium Chloride (Iv Sodium Chloride 0.9% 1000ml Bag) 1,000 ml @ 100 mls/hr Q10H IV Last administered on 10/12/16 19:09; Start 10/12/16 at 18:16; Stop at 04:15; Status DC Albuterol/ Ipratropium (Duoneb) 6 ml 1X ONCE NEB Last administered on 18:47; Start 10/12/16 at 18:30; Stop 10/12/16 at 18:31; Status DC Methylprednisolone Sodium Succinate (Solu-Medrol 125mg Vial) 125 mg 1X ONCE IV Last administered on 10/12/16 19:08; Start 10/12/16 at 18:30; Stop 10/12/16 at 18:31; Status DC Potassium Chloride (Klor-Con) 40 meq 1X ONCE PO Last administered on 19:58; Start 10/12/16 at 19:30; Stop 10/12/16 at 19:31; Status DC Ondansetron HCl (Zofran) 4 mg PRN Q8HRS PRN IV NAUSEA/VOMITING; Start 10/12/16 at 19:30; Stop 10/13/16 at 19:29; Status DC Fentanyl Citrate 50 mcg 50 mcg PRN Q2HR PRN IV PAIN; Start 10/12/16 at 19:30; Stop 10/13/16 at 19:29; Status DC Sodium Chloride (Iv Sodium Chloride 0.9% 1000ml Bag) 1,000 ml @ 75 mls/hr [id number] IV Last administered on 10/13/16 13:10; Start 10/12/16 at 19:23; Stop 10/13/16 at 19:22; Status DC Acetaminophen (Tylenol) 650 mg PRN Q4HRS PRN PO FEVER; Start 10/12/16 at 19:30 ; Stop 10/13/16 at 19:29; Status DC Albuterol/ Ipratropium (Duoneb) 3 ml RTQID NEB Last administered on 10/13/16 07:01; Start 10/12/16 at 20:00; Stop 10/13/16 at 16:05; Status DC Furosemide (Lasix) 20 mg 1X PRN PRN IV Blood transfusion; Start 10/12/16 at 19: 30; Stop 10/13/16 at 19:29; Status DC Methylprednisolone Sodium Succinate (Solu-Medrol 40mg Vial) 60 mg Q6HRS IV Last administered on 10/14/16 05:37; Start 10/13/16 at 00:00; Stop 10/14/16 at 08:36; Status DC Famotidine (Pepcid) 10 mg HS PO Last administered on 10/14/16 20:52; Start at 00:00 Gabapentin (Neurontin) 300 mg BID PO Last administered on 10/14/16 08:07; Start 10/13/16 at 00:00; Stop 10/14/16 at 08:36; Status DC Acetaminophen/ Hydrocodone Bitart (Lortab 7.5/325) 1 tab PRN Q6HRS PRN PO PAIN Last administered on 10/13/16 00:29; Start 10/12/16 at 23:45 Guaifenesin (Mucinex) 600 mg PRN BID PRN PO cough Last administered on 00:29; Start 10/12/16 at 23:45 Apixaban (Eliquis) 10 mg DAILY PO ; Start 10/14/16 at 09:00; Stop 10/14/16 at 09 :00; Status DC Aspirin (Children'S Aspirin) 81 mg DAILY PO Last administered on 10/15/16 09: 46; Start 10/13/16 at 09:30 Benzonatate (Tessalon Perle) 100 mg PRN DAILY PRN PO COUGH; Start 10/13/16 at 09:15; Stop 10/13/16 at 12:17; Status DC Diclofenac Sodium (Voltaren) 1 vish PRN QID PRN TP PAIN; Start 10/13/16 at 09:15 Guaifenesin (Mucinex) 600 mg BID PO Last administered on 10/15/16 09:43; Start 10/13/16 at 09:30 Hydrochlorothiazide (Microzide) 12.5 mg PRN DAILY PRN PO swelling; Start at 09:15 Albuterol/ Ipratropium (Duoneb) 3 ml RTQID IH Last administered on 10/13/16 11 :10; Start 10/13/16 at 09:30; Stop 10/13/16 at 11:43; Status DC Midodrine (Proamatine) 5 mg [id number] PO Last administered on 10/14/16 05:37; Start 10/13/16 at 13:00 Calcium/Vitamin D (Oscal D 500mg/ 200uts) 1 tab DAILYWBKFT PO Last administered on 10/14/16 08:07; Start 10/13/16 at 09:30; Stop 10/14/16 at 13:15 ; Status DC Docusate Sodium (Colace) 100 mg DAILY PO ; Start 10/13/16 at 09:30; Status Cancel Pantoprazole Sodium (Protonix) 40 mg DAILYAC PO Last administered on 10/15/16 09:43; Start 10/13/16 at 11:30 Potassium Chloride (Klor-Con) 10 meq DAILYWBKFT PO Last administered on 09:44; Start 10/14/16 at 08:00 Acetaminophen (Tylenol) 650 mg PRN Q6HRS PRN PO MILD PAIN / TEMP; Start at 09:15 Ondansetron HCl (Zofran) 4 mg PRN Q6HRS PRN IV NAUSEA/VOMITING; Start 10/13/16 at 09:15 Senna/Docusate Sodium (Senna Plus) 1 tab BID PO Last administered on 10/13/16 20:23; Start 10/13/16 at 09:30; Stop 10/14/16 at 08:46; Status DC Docusate Sodium (Colace) 100 mg BID PO Last administered on 10/13/16 20:23; Start 10/13/16 at 09:15; Stop 10/14/16 at 08:46; Status DC Magnesium Hydroxide (Milk Of Magnesia) 2,400 mg PRN Q12HR PRN PO CONSTIPATION; Start 10/13/16 at 09:15 Lactulose 20 gm PRN Q12HR PRN PO CONSTIPATION Last administered on 10/13/16 21 :52; Start 10/13/16 at 09:15 Albuterol/ Ipratropium (Duoneb) 3 ml RTQID NEB Last administered on 10/15/16 06:48; Start 10/13/16 at 12:00 Albuterol Sulfate (Ventolin Neb Soln) 2.5 mg PRN Q4HRS PRN NEB SHORTNESS OF BREATH Last administered on 10/15/16 09:23; Start 10/13/16 at 09:15 Budesonide (Pulmicort) 0.5 mg RTBID NEB Last administered on 10/13/16 11:10; Start 10/13/16 at 09:30; Stop 10/13/16 at 14:22; Status DC Apixaban (Eliquis) 5 mg BID PO Last administered on 10/15/16 09:44; Start at 12:00 Polyethylene Glycol (miraLAX PACKET) 17 gm BID PO Last administered on 20:22; Start 10/13/16 at 12:00; Stop 10/14/16 at 08:46; Status DC Info (Anti-Coagulation Monitoring By Pharmacy) 1 each PRN DAILY PRN MC SEE COMMENTS Last administered on 10/14/16 13:19; Start 10/13/16 at 11:45 Potassium Chloride 40 meq 40 meq 1X ONCE PO Last administered on 10/13/16 13: 09; Start 10/13/16 at 11:45; Stop 10/13/16 at 11:46; Status DC Magnesium Sulfate/ Dextrose (Magnesium Sulfate PREMIX 2GM) 50 ml @ 25 mls/hr 1X ONCE IV Last administered on 10/13/16 13:10; Start 10/13/16 at 12:00; Stop 10/13/16 at 13:59; Status DC Benzonatate (Tessalon Perle) 100 mg PRN DAILY PRN PO COUGH Last administered on 10/14/16 20:53; Start 10/13/16 at 12:30 Budesonide (Pulmicort) 0.5 mg RTBID NEB Last administered on 10/15/16 06:48; Start 10/13/16 at 20:00 Diphenhydramine HCl (Benadryl) 25 mg PRN QHS PRN PO INSOMNIA Last administered on 10/14/16 20:52; Start 10/13/16 at 20:00 Calcium/Vitamin D 1 tab 1 tab STK-MED ONCE .ROUTE ; Start 10/14/16 at 07:46; Stop 10/14/16 at 07:47; Status DC Iron Sucrose/ Sodium Chloride (Venofer/Iv Sodium Chloride 0.9% 100ml) 110 ml @ 55 mls/hr DAILY IV Last administered on 10/15/16 09:00; Start 10/14/16 at 09: 00; Stop 10/18/16 at 10:00 Methylprednisolone Sodium Succinate (Solu-Medrol 40mg Vial) 60 mg TID IV Last administered on 10/14/16 20:53; Start 10/14/16 at 14:00; Stop 10/15/16 at 08:40 ; Status DC Doxycycline Hyclate (Vibra-Tab) 100 mg BID PO Last administered on 10/15/16 09 :44; Start 10/14/16 at 09:00 Docusate Sodium (Colace) 100 mg PRN BID PRN PO CONSTIPATION; Start 10/14/16 at 21:00 Polyethylene Glycol (miraLAX PACKET) 17 gm PRN BID PRN PO CONSTIPATION; Start 10/14/16 at 21:00 Senna/Docusate Sodium (Senna Plus) 1 tab PRN BID PRN PO CONSTIPATION; Start at 21:00 Gabapentin (Neurontin) 300 mg TID PO Last administered on 10/15/16 09:44; Start 10/14/16 at 14:00 Cyanocobalamin (Vitamin B-12) 1,000 mcg DAILY PO Last administered on 09:44; Start 10/14/16 at 10:30 Calcium/Vitamin D (Oscal D 500mg/ 200uts) 1 tab DAILYWBKFT PO Last administered on 10/15/16 09:43; Start 10/15/16 at 08:00 Prednisone (Prednisone) 40 mg DAILY PO ; Start 10/15/16 at 09:00 Active Scripts Active Prednisone 10 Mg Tablet 10 Mg PO DAILY take 3 tabs daily for 3 dys, then take 2 tabs daily for 3 days, then take 1 tab daily for 3 days, then take 1/2 tab daily for 2 days. Mucinex (Guaifenesin) 600 Mg Tablet.er 600 Mg PO BID 7 Days Reported Aspirin 81 Mg Tab.chew 1 Tab PO DAILY Gabapentin 300 Mg Capsule 300 Mg PO BID Voltaren (Diclofenac Sodium) 100 Gm Gel..gram. 1 Gm TP QID PRN Stool Softener (Docusate Sodium) 100 Mg Tablet 100 Mg PO DAILY Hydrocodone-Apap 7.5-325 (Hydrocodone Bit/Acetaminophen) 1 Each Tablet 1 Tab PO PRN Q6HRS PRN Benzonatate 100 Mg Capsule 100 Mg PO DAILY PRN Citracal + D Er Tablet (Calcium Carb & Cit/Vitamin D3) 1 Each Tablet.er 1 Each PO DAILY Hydrochlorothiazide Capsule (Hydrochlorothiazide) 12.5 Mg Capsule 1 Cap PO DAILY PRN Prednisone 10 Mg Tablet 10 Mg PO DAILY Midodrine Hcl 5 Mg Tablet 5 Mg PO TID Eliquis (Apixaban) 5 Mg Tablet 10 Mg PO DAILY Potassium Chloride 10 Meq Tablet.er 10 Meq PO QODAY Albuterol Sulfate Neb Soln (Albuterol Sulfate) 0.63 Mg/3 Ml Vial.neb 1 Vial NEB PRN TID PRN Pepcid (Famotidine) 20 Mg Tablet 10 Mg PO HS Duoneb 0.5-3(2.5) Mg/3 Ml (Albuterol/Ipratropium) 3 Ml Ampul.neb 3 Ml IH QID Omeprazole 20 Mg Capsule.dr 1 Cap PO DAILY Vitals/I & O Vital Sign - Last 24 Hours 10/14/16 10/14/16 10/14/16 10/14/16 13:00 15:00 15:14 18:18 Temp 98.6 98.6 Pulse 95 89 Resp 23 B/P 141/67 121/61 Pulse Ox 96 O2 Delivery Nasal Cannula Nasal Cannula Nasal Cannula O2 Flow Rate 3.0 3.0 3.0 10/14/16 10/14/16 10/14/16 10/14/16 19:00 19:50 20:31 23:24 Temp 98.6 97.8 98.6 97.8 Pulse 103 92 Resp 20 18 B/P 167/71 164/70 Pulse Ox 94 94 94 O2 Delivery Nasal Cannula Nasal Cannula Nasal Cannula Nasal Cannula O2 Flow Rate 3.0 3.0 3.0 3.0 10/15/16 10/15/16 10/15/16 10/15/16 02:24 03:40 06:50 07:00 Temp 98.7 98.7 Pulse 80 85 Resp 20 B/P 148/57 126/66 Pulse Ox 92 93 90 O2 Delivery Nasal Cannula Nasal Cannula Room Air O2 Flow Rate 3.0 3.0 10/15/16 10/15/16 10/15/16 10/15/16 07:00 08:00 09:25 11:00 Temp 97.6 98.4 97.6 98.4 Pulse 85 67 Resp 24 22 B/P 126/66 140/68 Pulse Ox 94 98 O2 Delivery Nasal Cannula Nasal Cannula Nasal Cannula Room Air O2 Flow Rate 4.0 3.0 3.0 Intake and Output 10/14/16 10/14/16 10/15/16 15:00 23:00 07:00 Intake Total 1220 ml 100 ml Output Total 175 ml 550 ml Balance 1045 ml -450 ml JORDI ROE MD Oct 15, 2016 12:48
[2016-10-15 15:00] VITALS: BP 139/78
[2016-10-15 19:59] VITALS: BP 126/85
[2016-10-15] MEDS: BENZONATATE 100 MG CAPSULE. PO PRN (20:38)
[2016-10-15] MEDS: DIPHENHYDRAMINE HCL 25 MG CAPSULE PO PRN (20:39)
[2016-10-15] MEDS: FAMOTIDINE 20 MG TABLET. PO SCH (20:40)
[2016-10-16] MEDS: ALBUTEROL SULFATE 2.5 MG/3 ML NEBU. NEB PRN (00:06)
[2016-10-16 03:59] VITALS: BP 143/79
[2016-10-16 05:59] LABS: BASO % 0 % (0-3); EOS % 0 % (0-3); HEMATOCRIT 27.3 % (36.0-47.0); HEMOGLOBIN 8.2 g/dL (12.0-15.5); LYMPH # 1.4 x10^3/uL (1.0-4.8); LYMPH % 12 % (24-48); MEAN CORPUSCULAR HEMOGLOBIN 22 pg (25-35); MEAN CORPUSCULAR HGB CONC 30 g/dL (31-37); MEAN CORPUSCULAR VOLUME 75 fL (79-100); MONO % 7 % (0-9); NEUT % 81 % (31-73); PLATELET COUNT 218 x10^3/uL (140-400); RED BLOOD COUNT 3.66 x10^6/uL (3.50-5.40); RED CELL DISTRIBUTION WIDTH 21.9 % (11.5-14.5); WHITE BLOOD COUNT 11.4 x10^3/uL (4.0-11.0)
[2016-10-16 06:08] LABS: CALCIUM 8.7 mg/dL (8.5-10.1); GFR 53.9; POTASSIUM 4.3 mmol/L (3.5-5.1)
[2016-10-16 07:00] VITALS: BP 136/84
[2016-10-16] MEDS: BUDESONIDE 0.5 MG/2 ML NEBU. NEB SCH (07:54)
[2016-10-16] MEDS: IPRATRPIUM/ALBUTEROL 0.5/2.5MG 3 ML NEBU. NEB SCH ×2 (07:54→12:17)
[2016-10-16] MEDS ORDERED: PRED20TA PO (10:08)
[2016-10-16] MEDS ORDERED: DOCU-27 PO (10:08)
[2016-10-16] MEDS ORDERED: SENN-22 PO (10:08)
[2016-10-16] MEDS ORDERED: CYAN10005 PO (10:08)
[2016-10-16] MEDS ORDERED: DOXY100T PO (10:08)
[2016-10-16] MEDS ORDERED: FERR325T72 PO (10:11)
[2016-10-16] MEDS ORDERED: GABA-586 PO (10:12)
[2016-10-16 11:00] VITALS: BP 139/88
[2016-10-16] MEDS ORDERED: FERROUS SULFATE 325 MG TABLET PO SCH (11:00)
--- NOTE | 2016-10-16 12:01 | PDOC3 ---
Discharge Summary [facility] Date of Admission: Oct 12, 2016 Discharge Date: Oct 16, 2016 Admitting Diagnosis 1. generalized weakness 2/2 copd and anemia, possible steroid induced weakness 2. chronic anemia, iron deficiency likely 3. copd exacerbation 4. PAFIB 5. chronic OA 6.CHRONIC constipation 7. gerd 8. htn 9h/o bl leg dvt 10. PPM 11. HYPOkalemia 12. hypomagnesemia 13. smoking 14. bl leg neuropathy 15. atypical chest pain, 2/2 resp failure likely Problems: Final Diagnosis CONSULTS gi pulm card Brief Hospital Course Patient is a 76 year old female who presents with complaint of generalized weakness. Pt lives with , use a cane and a walker at home. She denies weight loss, but feels generalized weakness. Hb was found 7.2 in ER, baseline 8-10, but denies dark stool, was found low iron last year,but not taking iron, and pt is not happy about her PCP. she also s/o constipation, not taking stool softer consistently. not taking vege much.She did some abd sx before long time ago, since then , c/o some weird feeling under rib cage, abd ct neg 2015. She looks sob, but when i asked her, she said she feels it is normal for her, and on home NC 3L. but when i told her she has wheezing, she said the wheezing is worse recently. She was here 06/2016 for COPD. still smoking, <1ppd, use duoneb 4 times daily. pt improved with doxy, solumedrol, no wheezing now, on NC 3L as her baseline. iron low, cont po, add vitb12, hb stable, no active bleeding. had chest pain, not cardiac pain, card consulted. stool softner prn. dc home with doxy, taper prednisone. General: Alert, Oriented X3, Cooperative, No acute distress Heart: Regular rate (SR), Normal S1, Normal S2, No murmurs Lungs:no wheezing, tight bs Abdomen: Soft, No tenderness Extremities: No cyanosis, No edema Skin: No breakdown, No significant lesion Patient History: FH: schizophrenia G8 SON Unknown Problems: Disposition home CONDITION AT DISCHARGE: Improved, Stable Diet regular Scheduled Apixaban (Eliquis) 10 MG PO DAILY (Reported) Aspirin (Aspirin) 1 TAB PO DAILY (Reported) Calcium Carb & Cit/Vitamin D3 (Citracal + D Er Tablet) 1 EACH PO DAILY (Reported ) Cyanocobalamin (Vitamin B-12) (Vitamin B-12) 1,000 MCG PO DAILY Docusate Sodium (Stool Softener) 100 MG PO DAILY (Reported) Doxycycline Hyclate (Doxycycline Hyclate) 100 MG PO BID Famotidine (Pepcid) 10 MG PO HS (Reported) Ferrous Sulfate (Feosol) 325 MG PO BID Gabapentin (Gabapentin) 300 MG PO BID (Reported) Gabapentin (Gabapentin) 300 MG PO TID Guaifenesin (Mucinex) 600 MG PO BID Ipratropium/Albuterol Sulfate (Duoneb 0.5-3(2.5) Mg/3 Ml) 3 ML IH QID (Reported ) Midodrine Hcl (Midodrine Hcl) 5 MG PO TID (Reported) Omeprazole (Omeprazole) 1 CAP PO DAILY (Reported) Potassium Chloride (Potassium Chloride) 10 MEQ PO QODAY (Reported) Prednisone (Prednisone) 40 MG PO DAILY Scheduled PRN Albuterol Sulfate (Albuterol Sulfate Neb Soln) 1 VIAL NEB PRN TID PRN PRN SHORTNESS OF BREATH (Reported) Benzonatate (Benzonatate) 100 MG PO DAILY PRN PRN COUGH (Reported) Diclofenac Sodium (Voltaren) 1 GM TP QID PRN PRN PAIN (Reported) Docusate Sodium (Colace) 100 MG PO PRN BID PRN PRN CONSTIPATION Hydrochlorothiazide (Hydrochlorothiazide Capsule ) 1 CAP PO DAILY PRN PRN swelling (Reported) Hydrocodone Bit/Acetaminophen (Hydrocodone-Apap 7.5-325 ) 1 TAB PO PRN Q6HRS PRN PRN PAIN (Reported) Sennosides/Docusate Sodium (Senna-Time S Tablet) 1 TAB PO PRN BID PRN PRN CONSTIPATION Discontinued Medications Prednisone (Prednisone) 10 MG PO DAILY (Reported) Prednisone (Prednisone) 10 MG PO DAILY Follow Up pcp in 2 weeks JORDI ROE MD Oct 16, 2016 12:01
--- NOTE | 2016-10-16 12:06 | PDOC ---
PULMONARY PROGRESS NOTES Subjective feels better. has sob, better, has cough, occ sputum, no runny nose. Vitals Vital Signs Date Time Temp Pulse Resp B/P Pulse Ox O2 Delivery O2 Flow Rate FiO2 10/16/16 11:00 98.0 98 24 139/88 95 Nasal Cannula 98.0 10/16/16 07:56 3.0 Comments ros as mentioned as above other sys other moreno neg General: Alert, Oriented X4, No acute distress HEENT: Other (nc at perrl, throat nose clear) Lungs: Wheezing (bl mild, tight bs) Cardiovascular: S1, S2 Abdomen: Soft, Non-tender Extremities: Other Skin: Warm, Dry Labs Laboratory Tests Test 10/15/16 09:48 10/15/16 15:22 10/16/16 04:50 Troponin I Quantitative 0.046ng/mL (0.000-0.055) 0.047ng/mL (0.000-0.055) White Blood Count 11.4x10^3/uL (4.0-11.0) Red Blood Count 3.66x10^6/uL (3.50-5.40) Hemoglobin 8.2g/dL (12.0-15.5) Hematocrit 27.3% (36.0-47.0) Mean Corpuscular Volume 75fL (79-100) Mean Corpuscular Hemoglobin 22pg (25-35) Mean Corpuscular Hemoglobin Concent 30g/dL (31-37) Red Cell Distribution Width 21.9% (11.5-14.5) Platelet Count 218x10^3/uL (140-400) Neutrophils (%) (Auto) 81% (31-73) Lymphocytes (%) (Auto) 12% (24-48) Monocytes (%) (Auto) 7% (0-9) Eosinophils (%) (Auto) 0% (0-3) Basophils (%) (Auto) 0% (0-3) Neutrophils # (Auto) 9.2x10^3uL (1.8-7.7) Lymphocytes # (Auto) 1.4x10^3/uL (1.0-4.8) Monocytes # (Auto) 0.8x10^3/uL (0.0-1.1) Eosinophils # (Auto) 0.0x10^3/uL (0.0-0.7) Basophils # (Auto) 0.0x10^3/uL (0.0-0.2) Sodium Level 143mmol/L (136-145) Potassium Level 4.3mmol/L (3.5-5.1) Chloride Level 107mmol/L (98-107) Carbon Dioxide Level 29mmol/L (21-32) Anion Gap 7 (6-14) Blood Urea Nitrogen 28mg/dL (7-20) Creatinine 1.0mg/dL (0.6-1.0) Estimated GFR (Cockcroft-Gault) 53.9 Glucose Level 128mg/dL (70-99) Calcium Level 8.7mg/dL (8.5-10.1) Laboratory Tests Test 10/15/16 15:22 10/16/16 04:50 Troponin I Quantitative 0.047ng/mL (0.000-0.055) White Blood Count 11.4x10^3/uL (4.0-11.0) Red Blood Count 3.66x10^6/uL (3.50-5.40) Hemoglobin 8.2g/dL (12.0-15.5) Hematocrit 27.3% (36.0-47.0) Mean Corpuscular Volume 75fL (79-100) Mean Corpuscular Hemoglobin 22pg (25-35) Mean Corpuscular Hemoglobin Concent 30g/dL (31-37) Red Cell Distribution Width 21.9% (11.5-14.5) Platelet Count 218x10^3/uL (140-400) Neutrophils (%) (Auto) 81% (31-73) Lymphocytes (%) (Auto) 12% (24-48) Monocytes (%) (Auto) 7% (0-9) Eosinophils (%) (Auto) 0% (0-3) Basophils (%) (Auto) 0% (0-3) Neutrophils # (Auto) 9.2x10^3uL (1.8-7.7) Lymphocytes # (Auto) 1.4x10^3/uL (1.0-4.8) Monocytes # (Auto) 0.8x10^3/uL (0.0-1.1) Eosinophils # (Auto) 0.0x10^3/uL (0.0-0.7) Basophils # (Auto) 0.0x10^3/uL (0.0-0.2) Sodium Level 143mmol/L (136-145) Potassium Level 4.3mmol/L (3.5-5.1) Chloride Level 107mmol/L (98-107) Carbon Dioxide Level 29mmol/L (21-32) Anion Gap 7 (6-14) Blood Urea Nitrogen 28mg/dL (7-20) Creatinine 1.0mg/dL (0.6-1.0) Estimated GFR (Cockcroft-Gault) 53.9 Glucose Level 128mg/dL (70-99) Calcium Level 8.7mg/dL (8.5-10.1) Medications Active Scripts Medications Dose Route/Sig Days Date Category Dose Instructions Aspirin 81 Mg Tab.chew 1 Tab PO DAILY 10/12/16 Reported Prednisone 10 Mg Tablet 10 Mg PO DAILY 07/11/16 Rx take 3 tabs daily for 3 dys, then take 2 tabs daily for 3 days, then take 1 tab daily for 3 days, then take 1/2 tab daily for 2 days. Gabapentin 300 Mg Capsule 300 Mg PO BID 07/06/16 Reported Voltaren (Diclofenac Sodium) 100 Gm Gel..gram. 1 Gm TP QID PRN 06/20/16 Reported Stool Softener (Docusate Sodium) 100 Mg Tablet 100 Mg PO DAILY 06/20/16 Reported Hydrocodone-Apap 7.5-325 (Hydrocodone Bit/Acetaminophen) 1 Each Tablet 1 Tab PO PRN Q6HRS PRN 06/20/16 Reported Benzonatate 100 Mg Capsule 100 Mg PO DAILY PRN 06/20/16 Reported Citracal + D Er Tablet (Calcium Carb & Cit/Vitamin D3) 1 Each Tablet.er 1 Each PO DAILY 06/20/16 Reported Hydrochlorothiazide Capsule (Hydrochlorothiazide) 12.5 Mg Capsule 1 Cap PO DAILY PRN 06/20/16 Reported Prednisone 10 Mg Tablet 10 Mg PO DAILY 06/20/16 Reported Mucinex (Guaifenesin) 600 Mg Tablet.er 600 Mg PO BID 7 04/22/16 Rx Midodrine Hcl 5 Mg Tablet 5 Mg PO TID 11/24/15 Reported Eliquis (Apixaban) 5 Mg Tablet 10 Mg PO DAILY 11/24/15 Reported Potassium Chloride 10 Meq Tablet.er 10 Meq PO QODAY 11/24/15 Reported Albuterol Sulfate Neb Soln (Albuterol Sulfate) 0.63 Mg/3 Ml Vial.neb 1 Vial NEB PRN TID PRN 09/25/15 Reported Pepcid (Famotidine) 20 Mg Tablet 10 Mg PO HS 07/29/15 Reported Duoneb 0.5-3(2.5) Mg/3 Ml (Albuterol/Ipratropium) 3 Ml Ampul.neb 3 Ml IH QID 03/24/15 Reported Omeprazole 20 Mg Capsule. 1 Cap PO DAILY 02/27/14 Reported Comments cxr reviewed. Impression . IMPRESSION: 1. Dyspnea secondary to combination of acute exacerbation of chronic obstructive pulmonary disease, anemia and increasing abdominal distension and bloating resulting in reduced lung compliance and anemia 2. Chronic respiratory failure, on home oxygen at 3-4 liters. Oxygen requirement has not changed. 3. No definite pneumonia seen. 4. History of recurrent deep vein thrombosis, on chronic anticoagulation with Eliquis. 5. Weakness ,suspect due to anemia and ? steroid induced myopathy. Plan . RECOMMENDATIONS: 1. Continue with oxygen. 2. Continue bronchodilators. 3. The patient's dyspnea and weakness is probably related to anemia. She used to be on chronic steroids. She said she stopped 5 days ago. Cannot exclude steroid-induced myopathy 4. Follow GI recommendations. She may need EGD and workup of anemia along with constipation workup. 5. Anticoagulation can be withheld if invasive GI procedures are required. 6. pt ot 7. prednisone 40 mg daily w taper by 10 mg q 3d. discussed w pt. IFEANYI NICHOLAS MD Oct 16, 2016 12:06
== END 2016-10-16 14:00 | disposition home or self-care (01) | DRG 191 ==
LOC: ER 17:34 → 5 SOUTH 19:22
PROVIDERS: ADMIT Internal Medicine; ATTEND Internal Medicine
PROC: 30233N1 Transfusion of Nonautologous Red Blood Cells into Peripheral Vein, Percutaneous Approach (ICD-10-PCS; principal; 2016-10-12)
DX: J44.1 Chronic obstructive pulmonary disease with (acute) exacerbation (principal); J96.10 Chronic respiratory failure, unspecified whether with hypoxia or hypercapnia; G72.0 Drug-induced myopathy; I50.32 Chronic diastolic (congestive) heart failure; K21.9 Gastro-esophageal reflux disease without esophagitis; E83.42 Hypomagnesemia; E87.6 Hypokalemia; T38.0X5A Adverse effect of glucocorticoids and synthetic analogues, initial encounter; D50.9 Iron deficiency anemia, unspecified; E78.5 Hyperlipidemia, unspecified; F17.200 Nicotine dependence, unspecified, uncomplicated; F32.9 Major depressive disorder, single episode, unspecified; F41.9 Anxiety disorder, unspecified; I48.0 Paroxysmal atrial fibrillation; M19.90 Unspecified osteoarthritis, unspecified site; G89.29 Other chronic pain; I49.5 Sick sinus syndrome; G57.90 Unspecified mononeuropathy of unspecified lower limb; G62.9 Polyneuropathy, unspecified; I11.0 Hypertensive heart disease with heart failure; K59.09 Other constipation; Z96.649 Presence of unspecified artificial hip joint; Z86.718 Personal history of other venous thrombosis and embolism; Z79.01 Long term (current) use of anticoagulants; Z79.52 Long term (current) use of systemic steroids; Z82.49 Family history of ischemic heart disease and other diseases of the circulatory system; Z88.2 Allergy status to sulfonamides; Z95.0 Presence of cardiac pacemaker; Z90.710 Acquired absence of both cervix and uterus; Z90.49 Acquired absence of other specified parts of digestive tract; Z98.49 Cataract extraction status, unspecified eye
CPT/HCPCS: 36415; 71010; 80048; 80053; 81001; 82274; 82553; 82607; 82728; 82746; 83540; 83550; 83735; 83880; 84100; 84484; 85007; 85027; 86850; 86900; 86901; 86920; 87040; 87804; 93005; 93306; 94250; 94640; 94760; 96374; J1756; J2920; J2930; J7030; J7060; J7512; J7620; P9016; Q0163; 97116; 99285-25

== ENCOUNTER 2016-12-01 13:26 | Inpatient (IN) | payer BC ==
[~2016-12-01] VITALS: Ht 165.1 cm; Wt 107.5 kg
[~2016-12-01 13:26] MED LIST changes: +ASPI81TA2 PO; +CYAN10005 PO; +DOCU-27 PO; +FERR325T72 PO; -POTA10TA10 PO; +POTA10TA12 PO; +PRED20TA PO; +SENN-22 PO
[2016-12-01 15:00] VITALS: BP 136/72
[2016-12-01] MEDS ORDERED: ALPRAZolam 0.5 MG TABLET PO PRN (17:00)
[2016-12-01] MEDS ORDERED: FUROSEMIDE 20 MG/2 ML VIAL. IVP ONE (17:00)
[2016-12-01] MEDS ORDERED: ANTI-COAG MONITOR BY PHARMACY. MC PRN (17:30)
--- NOTE | 2016-12-01 17:57 | PDOC ---
OBJECTIVE Vital Signs Vital Signs Date Time Temp Pulse Resp B/P (MAP) Pulse Ox O2 Delivery O2 Flow Rate FiO2 12/01/16 16:49 97 Nasal Cannula 4.0 12/01/16 15:00 Nasal Cannula 4.0 12/01/16 15:00 97.1 76 20 136/72 (93) 87 Nasal Cannula 97.1 ASSESSMENT/PLAN Assessment/Plan [id number] dictated Problems: JAS CARREON MD December 01, 2016 17:56
[2016-12-01 18:03] LABS: BASO # 0.1 x10^3/uL (0.0-0.2); BASO % 1 % (0-3); EOS % 1 % (0-3); LYMPH # 1.3 x10^3/uL (1.0-4.8); LYMPH % 12 % (24-48); MEAN CORPUSCULAR HEMOGLOBIN 28 pg (25-35); MEAN CORPUSCULAR HGB CONC 33 g/dL (31-37); MEAN CORPUSCULAR VOLUME 84 fL (79-100); MONO % 7 % (0-9); NEUT % 79 % (31-73); PLATELET COUNT 199 x10^3/uL (140-400); RED BLOOD COUNT 4.27 x10^6/uL (3.50-5.40); RED CELL DISTRIBUTION WIDTH 27.4 % (11.5-14.5); WHITE BLOOD COUNT 10.4 x10^3/uL (4.0-11.0)
[2016-12-01 18:17] LABS: ALBUMIN 2.9 g/dL (3.4-5.0); ALBUMIN/GLOBULIN RATIO 0.9 (1.0-1.7); CALCIUM 8.9 mg/dL (8.5-10.1); GFR 53.9; POTASSIUM 3.1 mmol/L (3.5-5.1); TOTAL BILIRUBIN 0.3 mg/dL (0.2-1.0); TOTAL PROTEIN 6.3 g/dL (6.4-8.2)
--- NOTE | 2016-12-01 18:28 | PREOP HP ---
DATE OF SERVICE: 12/01/2016 ROOM: #532. HISTORY OF PRESENT ILLNESS: The patient is a 76-year-old lady who presented to the office today complaining of increasing shortness of breath. She does have her own oximetry at home and has noticed that her oxygen saturation has been in the range of 70%-80% even though she is wearing oxygen at 3 liters by nasal cannula. She felt like she is more short of breath. She has not been able to do any activities. She gets short of breath even talking. She also has been very dizzy, weak, and not feeling good. She recently had a Cologuard test as an outpatient which was positive and has seen GI as outpatient but has not had any other colonoscopy done. She was given another stool cards for blood x3. REVIEW OF SYSTEMS: CONSTITUTIONAL: Denies fever or chills. She does feel fatigue, weak, dizzy. HEENT: Upper respiratory, she denies sore throat or congestion. Denies visual changes. RESPIRATORY: She does have cough, productive of yellowish sputum and increasing shortness of breath and wheezes. CARDIAC: She denies chest pain, denies increased swelling in the lower extremities. GASTROINTESTINAL: Denies nausea, vomiting, diarrhea, or constipation. GENITOURINARY: She does have stress incontinence. NEUROLOGIC: She does have dizzy spells. She has been falling a lot and very short of breath. She denies focal deficit or sensory change. PAST MEDICAL HISTORY: Significant for COPD, history of valvular heart disease, atrial fibrillation, hypertension, and previous history of DVT. She is on blood thinner for that. Asthma and bronchitis. She is on oxygen at 3 liters per minute at home. She does have previous history of hiatal hernia, appendectomy, ventral hernia repair, obesity, gastroesophageal reflux disease, and previous history of GI bleed. She also has a history of endometriosis, hysterectomy, oophorectomy, salpingectomy, inguinal hernia repair, stress incontinence, urinary frequency, osteoarthritis, and right hip replacement. She has a history of fractured elbow. She has history of chronic back pain, depression, cataract surgery, and difficulty of hearing. 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 PHYSICAL EXAMINATION: GENERAL: She is alert, pleasant, in mild distress due to the shortness of breath. Her oximetry in the office was 84 on 3 liters by nasal cannula. VITAL SIGNS: Her blood pressure was 134/83, heart rate was 110, temperature 98.2, respiratory rate 24, weight 224 pounds, and she is 65.5 inches of height. HEENT: Her tympanic membranes are clear. Her pharynx is clear. NECK: Supple. LUNGS: With bilateral wheezes and decreased breath sounds. HEART: Regular rate and rhythm. Mildly tachycardic. ABDOMEN: Soft, mild tenderness in the epigastric area. No rebound, no guarding, no masses, no bruits, no ascites. EXTREMITIES: Trace edema in the lower extremities. IMPRESSION: 1. Acute on chronic respiratory failure due to chronic obstructive pulmonary disease exacerbation. The patient is admitted, started on steroids, bronchodilators, and Pulmonary consult. Continue her oxygen. 2. Fatigue and dizziness. 3. Anemia with recent positive Cologuard. We will check her hemoglobin. She might require Gastroenterology workup if her hemoglobin is worse. 4. Atrial fibrillation. 5. History of deep venous thrombosis. She is on Eliquis. 6. Hyperlipidemia. 7. History of cardiac pacemaker in situ. 8. 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 9. Obesity. JAS CARREON MD DR: MARY/adrienne JOB#: [id number] / [id number]
[2016-12-01] MEDS: ALBUTEROL SULFATE 2.5 MG/3 ML NEBU. NEB PRN (18:29)
[2016-12-01] MEDS ORDERED: IOHEXOL 300 MG/ML 75 ML VIAL IV ONE (18:30)
[2016-12-01 18:39] LABS: ANISOCYTOSIS MARKED; PLT ESTIMATE ADEQUATE (ADEQUATE); POLYCHROMASIA SLIGHT
[2016-12-01] MEDS ORDERED: CONTRAST GIVEN MC PRN (18:45)
[2016-12-01 19:00] VITALS: BP 146/77
[2016-12-01] MEDS: IPRATRPIUM/ALBUTEROL 0.5/2.5MG 3 ML NEBU. NEB SCH (20:00)
[2016-12-01] MEDS: BENZONATATE 100 MG CAPSULE. PO SCH (20:48)
[2016-12-01] MEDS: GABAPENTIN 300 MG CAPSULE. PO SCH (20:48)
[2016-12-01] MEDS: APIXABAN 5 MG TABLET. PO SCH (20:49)
[2016-12-01] MEDS: methylPREDNISolone SOD SUCC PF 125 MG/2 ML VIAL. IV SCH (22:53)
[2016-12-01 22:59] VITALS: BP 123/71
[2016-12-02 03:00] VITALS: BP 128/68
[2016-12-02] MEDS: ALBUTEROL SULFATE 2.5 MG/3 ML NEBU. NEB PRN (03:39)
[2016-12-02 05:07] LABS: BASO % 0 % (0-3); EOS % 0 % (0-3); HEMATOCRIT 38.7 % (36.0-47.0); HEMOGLOBIN 12.8 g/dL (12.0-15.5); LYMPH # 0.5 x10^3/uL (1.0-4.8); LYMPH % 5 % (24-48); MEAN CORPUSCULAR HEMOGLOBIN 28 pg (25-35); MEAN CORPUSCULAR HGB CONC 33 g/dL (31-37); MEAN CORPUSCULAR VOLUME 85 fL (79-100); MONO % 1 % (0-9); NEUT % 94 % (31-73); PLATELET COUNT 211 x10^3/uL (140-400); RED BLOOD COUNT 4.58 x10^6/uL (3.50-5.40); RED CELL DISTRIBUTION WIDTH 27.8 % (11.5-14.5); WHITE BLOOD COUNT 10.3 x10^3/uL (4.0-11.0)
[2016-12-02 05:33] LABS: CALCIUM 9.3 mg/dL (8.5-10.1); GFR 53.9; POTASSIUM 3.3 mmol/L (3.5-5.1)
[2016-12-02] MEDS: PANTOPRAZOLE 40 MG TABLET.DR. PO SCH (06:21)
[2016-12-02] MEDS: methylPREDNISolone SOD SUCC PF 125 MG/2 ML VIAL. IV SCH ×3 (06:21→21:26)
[2016-12-02 07:00] VITALS: BP 153/69
[2016-12-02] MEDS: APIXABAN 5 MG TABLET. PO SCH ×2 (07:16→21:25)
[2016-12-02] MEDS: GABAPENTIN 300 MG CAPSULE. PO SCH ×3 (07:16→21:25)
[2016-12-02] MEDS: BENZONATATE 100 MG CAPSULE. PO SCH ×3 (07:16→21:25)
[2016-12-02] MEDS: IPRATRPIUM/ALBUTEROL 0.5/2.5MG 3 ML NEBU. NEB SCH ×4 (07:25→19:53)
--- NOTE | 2016-12-02 07:40 | RAD ---
Exam performed: 2 views of the chest. Indication: hypoxia, sob Date of Service:12/01/2016 6:53 PM . Comparison : One view chest from 10/14/16 Findings: PA and lateral radiographs of the chest reveal a normal cardiomediastinal contour. Bipolar pacemaker The lungs are hyperinflated, however clear. Chronic changes in both lung bases. Biapical pleural parenchymal scarring is demonstrated . No pleural fluid is seen. The visualized osseous structures are unremarkable. Impression: 1. No acute cardiopulmonary process seen. 2. Emphysematous changes with chronic changes in both lung bases.
--- NOTE | 2016-12-02 07:52 | RAD ---
CT Pulmonary arteriogram: Indication:Hypoxia Date of Exam:12/01/16 . Comparison:04/01/14 Technique: Contiguous helical acquisitions are obtained through the chest during intravenous administration of 60 cc Omnipaque 300 . Coronal and sagittal MIP images were obtained and reviewed. Findings: The pulmonary arteries are negative for filling defects to suggest pulmonary emboli. No hilar or mediastinal abnormalities are noted. Occasional subcentimeter mediastinal lymph nodes are seen. The Trace pericardial effusion. Bipolar pacemaker Aorta is normal in caliber without aneurysm or dissection. Mild atheromatous calcification of the aorta is seen. The lungs are somewhat hyperinflated, however clear without infiltrate or mass. Linear left basilar opacities likely atelectasis. The pleural surfaces are smooth and no pleural fluid is seen. Small hiatal hernia. The visualized structures of the upper abdomen are unremarkable. Probable cyst in the left superior renal pole. Bones are normal Impression: 1. No convincing evidence of pulmonary embolism. 2. Mild bilateral emphysematous changes with a linear left basilar atelectasis 3. Probable left superior renal pole cyst PQRS Compliance Statement: One or more of the following individualized dose reduction techniques were utilized for this examination: 1. Automated exposure control 2. Adjustment of the mA and/or kV according to patient size 3. Use of iterative reconstruction technique
--- NOTE | 2016-12-02 08:20 | EKG ---
[facility] [address] [place] [address] Test Date: 2016-12-01 Test Time: 20:23:38 Pat Name: BERNA BRAVO Department: Room: [facility] Gender: F Camera Assembler: CQ : 1940 Requested By: JAS CARREON Order Number: [id number] Reading MD: Ochoa Mays Measurements Intervals Banks Rate: 91 P: 73 WA: 152 QRS: -68 QRSD: 132 T: 19 QT: 386 QTc: 483 Interpretive Statements SINUS RHYTHM ABNORMAL LEFT AXIS DEVIATION LEFT ANTERIOR FASCICULAR BLOCK RIGHT BUNDLE BRANCH BLOCK BIFASCICULAR BLOCK Electronically Signed On 12-05-2016 9:32:56 CDT by Ochoa Mays
[2016-12-02] MEDS ORDERED: POTASSIUM CHLORIDE 20 MEQ TABLET.ER. PO ONE (09:15)
--- NOTE | 2016-12-02 09:53 | PDOC ---
SUBJECTIVE Subjective still wheezing, less dizzy, feels better OBJECTIVE Vital Signs Vital Signs Date Time Temp Pulse Resp B/P (MAP) Pulse Ox O2 Delivery O2 Flow Rate FiO2 12/02/16 07:27 91 Nasal Cannula 4.0 12/02/16 07:00 97.7 99 18 153/69 (97) 92 Nasal Cannula 4.0 97.7 12/02/16 03:38 Nasal Cannula 4.0 12/02/16 03:00 96.6 87 20 128/68 (88) 93 Nasal Cannula 4.0 96.6 12/01/16 22:59 98.1 87 20 123/71 (88) 95 Nasal Cannula 4.0 98.1 12/01/16 20:05 Nasal Cannula 4.0 12/01/16 20:01 94 Nasal Cannula 4.0 12/01/16 19:00 97.9 94 20 146/77 (100) 96 Nasal Cannula 4.0 97.9 12/01/16 18:32 95 Nasal Cannula 4.0 12/01/16 16:49 97 Nasal Cannula 4.0 12/01/16 15:00 Nasal Cannula 4.0 12/01/16 15:00 97.1 76 20 136/72 (93) 87 Nasal Cannula 97.1 I & O Intake and Output 12/02/16 07:00 Intake Total 0 ml Balance 0 ml Intake Oral 0 ml # Voids 2 PHYSICAL EXAM Physical Exam lungs with wheezing bilaterally heart RRR abd soft ext no edema ASSESSMENT/PLAN Assessment/Plan 1. Acute on chronic respiratory failure due to chronic obstructive pulmonary disease exacerbation. no PE continue Eliquis 2. Fatigue and dizziness. 3. Anemia with recent positive Cologuard. Hb actually much better she has been taking iron supplement c/o mucousy stool bad smell will check c.diff ask GI to follow 4. Atrial fibrillation on chronic anticoagulation 5. History of deep venous thrombosis. 6. Hyperlipidemia. 7. History of cardiac pacemaker in situ. 8. 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 9. Obesity. 10. hyperglycemia due to steroid will monitor Dr Key will cover this week end Problems: COMMENT Lab Laboratory Tests Test 12/01/16 17:45 12/02/16 04:50 White Blood Count 10.4 x10^3/uL (4.0-11.0) 10.3 x10^3/uL (4.0-11.0) Red Blood Count 4.27 x10^6/uL (3.50-5.40) 4.58 x10^6/uL (3.50-5.40) Hemoglobin 12.0 g/dL (12.0-15.5) 12.8 g/dL (12.0-15.5) Hematocrit 36.0 % (36.0-47.0) 38.7 % (36.0-47.0) Mean Corpuscular Volume 84 fL (79-100) 85 fL (79-100) Mean Corpuscular Hemoglobin 28 pg (25-35) 28 pg (25-35) Mean Corpuscular Hemoglobin Concent 33 g/dL (31-37) 33 g/dL (31-37) Red Cell Distribution Width 27.4 % (11.5-14.5) 27.8 % (11.5-14.5) Platelet Count 199 x10^3/uL (140-400) 211 x10^3/uL (140-400) Neutrophils (%) (Auto) 79 % (31-73) 94 % (31-73) Lymphocytes (%) (Auto) 12 % (24-48) 5 % (24-48) Monocytes (%) (Auto) 7 % (0-9) 1 % (0-9) Eosinophils (%) (Auto) 1 % (0-3) 0 % (0-3) Basophils (%) (Auto) 1 % (0-3) 0 % (0-3) Neutrophils # (Auto) 8.2 x10^3uL (1.8-7.7) 9.7 x10^3uL (1.8-7.7) Lymphocytes # (Auto) 1.3 x10^3/uL (1.0-4.8) 0.5 x10^3/uL (1.0-4.8) Monocytes # (Auto) 0.7 x10^3/uL (0.0-1.1) 0.1 x10^3/uL (0.0-1.1) Eosinophils # (Auto) 0.1 x10^3/uL (0.0-0.7) 0.0 x10^3/uL (0.0-0.7) Basophils # (Auto) 0.1 x10^3/uL (0.0-0.2) 0.0 x10^3/uL (0.0-0.2) Platelet Estimate Adequate (ADEQUATE) Polychromasia Slight Anisocytosis Marked Sodium Level 142 mmol/L (136-145) 141 mmol/L (136-145) Potassium Level 3.1 mmol/L (3.5-5.1) 3.3 mmol/L (3.5-5.1) Chloride Level 102 mmol/L (98-107) 99 mmol/L (98-107) Carbon Dioxide Level 37 mmol/L (21-32) 35 mmol/L (21-32) Anion Gap 3 (6-14) 7 (6-14) Blood Urea Nitrogen 18 mg/dL (7-20) 19 mg/dL (7-20) Creatinine 1.0 mg/dL (0.6-1.0) 1.0 mg/dL (0.6-1.0) Estimated GFR (Cockcroft-Gault) 53.9 53.9 BUN/Creatinine Ratio 18 (6-20) Glucose Level 109 mg/dL (70-99) 192 mg/dL (70-99) Calcium Level 8.9 mg/dL (8.5-10.1) 9.3 mg/dL (8.5-10.1) Total Bilirubin 0.3 mg/dL (0.2-1.0) Aspartate Amino Transf (AST/SGOT) 17 U/L (15-37) Alanine Aminotransferase (ALT/SGPT) 26 U/L (14-59) Alkaline Phosphatase 61 U/L (46-116) US-Itu-U-Type Natriuretic Peptide 120 pg/mL (0-449) Total Protein 6.3 g/dL (6.4-8.2) Albumin 2.9 g/dL (3.4-5.0) Albumin/Globulin Ratio 0.9 (1.0-1.7) JAS CARREON MD December 02, 2016 09:53
[2016-12-02] MEDS ORDERED: DEXTROSE 50% 25 GM / 50ML DISP.SYRIN. IV PRN (10:00)
[2016-12-02 11:00] VITALS: BP_SYST 135; BP_SYST 139; BP_DIAS 65; BP_DIAS 71
--- NOTE | 2016-12-02 12:16 | PDOC2 ---
GI CONSULT Reason For Consult: Mucousy stool, + Cologuard HPI: HPI: 76 y/o admitted w/ COPD exacerbation. Previous GI eval by Dr. Dejesus in 2015 for anemia. Hgb has improved on iron. Since last admission has seen Dr. López for +Cologuard test. Due to resp status, says no colonoscopy recommended. Reports for ~1 week has had issues w/ passing clear-pinkish mucous , noted on pad worn for urinary incontinence. Malodorous. Has had soft (says "smashed") stools as well, sometimes during the night without knowing, also discovered on pad. Denies precipitating events including outpt antibiotic use. No abd pain, n/v, change in appetite, weight loss, hematochezia, melena. Stools are dark on iron. C Diff ordered. H/o GERD on omeprazole Q a.m. after breakfast and Pepcid QHS, still has occasional nocturnal reflux. Additional h/o constipation, currently controlled w/ prunes and Miralax PRN. Says she had increased SOA sometimes that resolves after having a BM which is concerning to her. Says previous EGD at [facility] (before moving to the in 2010) which reportedly revealed a hiatal hernia. Additional had screening colonoscopy years ago (also [facility]) which was reportedly normal. PMH: PMH: A Fib, HTN, COPD on O2, BLE DVT, GERD, neuropathy, depression/anxiety, OA, pacemaker, hip replacement, appendectomy, hysterectomy, bladder suspension, cataract extraction, incisional hernia repair FH: Family History: No pertinent hx Social History: Smoke: <1 pack per day ALCOHOL: rare Drugs: None ROS: GEN: Denies fevers, chills, sweats HEENT: Denies blurred vision, sore throat CV: Denies chest pain RESP: +SOA +cough GI: Per HPI : Denies hematuria, dysuria ENDO: Denies weight changes NEURO: Denies confusion, dizziness MSK: Denies weakness, joint pain/swelling SKIN: Denies jaundice, pruritus Vitals: Vitals: Vital Signs Date Time Temp Pulse Resp B/P (MAP) Pulse Ox O2 Delivery O2 Flow Rate FiO2 12/02/16 11:18 Nasal Cannula 4.0 12/02/16 07:27 91 12/02/16 07:00 97.7 99 18 153/69 (97) 97.7 Labs: Labs: Laboratory Tests Test 12/01/16 17:45 12/02/16 04:50 White Blood Count 10.4 x10^3/uL (4.0-11.0) 10.3 x10^3/uL (4.0-11.0) Red Blood Count 4.27 x10^6/uL (3.50-5.40) 4.58 x10^6/uL (3.50-5.40) Hemoglobin 12.0 g/dL (12.0-15.5) 12.8 g/dL (12.0-15.5) Hematocrit 36.0 % (36.0-47.0) 38.7 % (36.0-47.0) Mean Corpuscular Volume 84 fL (79-100) 85 fL (79-100) Mean Corpuscular Hemoglobin 28 pg (25-35) 28 pg (25-35) Mean Corpuscular Hemoglobin Concent 33 g/dL (31-37) 33 g/dL (31-37) Red Cell Distribution Width 27.4 % (11.5-14.5) 27.8 % (11.5-14.5) Platelet Count 199 x10^3/uL (140-400) 211 x10^3/uL (140-400) Neutrophils (%) (Auto) 79 % (31-73) 94 % (31-73) Lymphocytes (%) (Auto) 12 % (24-48) 5 % (24-48) Monocytes (%) (Auto) 7 % (0-9) 1 % (0-9) Eosinophils (%) (Auto) 1 % (0-3) 0 % (0-3) Basophils (%) (Auto) 1 % (0-3) 0 % (0-3) Neutrophils # (Auto) 8.2 x10^3uL (1.8-7.7) 9.7 x10^3uL (1.8-7.7) Lymphocytes # (Auto) 1.3 x10^3/uL (1.0-4.8) 0.5 x10^3/uL (1.0-4.8) Monocytes # (Auto) 0.7 x10^3/uL (0.0-1.1) 0.1 x10^3/uL (0.0-1.1) Eosinophils # (Auto) 0.1 x10^3/uL (0.0-0.7) 0.0 x10^3/uL (0.0-0.7) Basophils # (Auto) 0.1 x10^3/uL (0.0-0.2) 0.0 x10^3/uL (0.0-0.2) Platelet Estimate Adequate (ADEQUATE) Polychromasia Slight Anisocytosis Marked Sodium Level 142 mmol/L (136-145) 141 mmol/L (136-145) Potassium Level 3.1 mmol/L (3.5-5.1) 3.3 mmol/L (3.5-5.1) Chloride Level 102 mmol/L (98-107) 99 mmol/L (98-107) Carbon Dioxide Level 37 mmol/L (21-32) 35 mmol/L (21-32) Anion Gap 3 (6-14) 7 (6-14) Blood Urea Nitrogen 18 mg/dL (7-20) 19 mg/dL (7-20) Creatinine 1.0 mg/dL (0.6-1.0) 1.0 mg/dL (0.6-1.0) Estimated GFR (Cockcroft-Gault) 53.9 53.9 BUN/Creatinine Ratio 18 (6-20) Glucose Level 109 mg/dL (70-99) 192 mg/dL (70-99) Calcium Level 8.9 mg/dL (8.5-10.1) 9.3 mg/dL (8.5-10.1) Total Bilirubin 0.3 mg/dL (0.2-1.0) Aspartate Amino Transf (AST/SGOT) 17 U/L (15-37) Alanine Aminotransferase (ALT/SGPT) 26 U/L (14-59) Alkaline Phosphatase 61 U/L (46-116) QE-Ote-A-Type Natriuretic Peptide 120 pg/mL (0-449) Total Protein 6.3 g/dL (6.4-8.2) Albumin 2.9 g/dL (3.4-5.0) Albumin/Globulin Ratio 0.9 (1.0-1.7) Allergies: Coded Allergies: Sulfa (Sulfonamide Antibiotics) (Verified Allergy, Intermediate, Rash, 06/09) Medications: Current Medications Medications (Trade) Dose Ordered Sig/Ck Route PRN Reason Start Time Stop Time Status Last Admin Dose Admin Furosemide (Lasix) 20 mg 1X ONCE IVP 12/01/16 17:00 12/01/16 17:32 DC 12/01/16 18:19 Albuterol/ Ipratropium (Duoneb) 3 ml RTQID NEB 12/01/16 20:00 12/02/16 11:16 Pantoprazole Sodium (Protonix) 40 mg DAILYAC PO 12/02/16 07:30 12/02/16 06:21 Apixaban (Eliquis) 5 mg BID PO 12/01/16 21:00 12/02/16 07:16 Benzonatate (Tessalon Perle) 100 mg [id number] PO 12/01/16 21:00 12/02/16 07:16 Gabapentin (Neurontin) 300 mg TID PO 12/01/16 21:00 12/02/16 07:16 Methylprednisolone Sodium Succinate (Solu-Medrol 125mg Vial) 80 mg Q8HRS IV 12/01/16 22:00 12/02/16 06:21 Levofloxacin (Levaquin) 500 mg DAILY06 PO 12/01/16 17:00 12/02/16 06:21 Albuterol Sulfate (Ventolin Neb Soln) 3 mg PRN Q2HRS PRN NEB soa 12/01/16 18:30 12/02/16 03:39 Iohexol (Omnipaque 300 Mg/ml) 60 ml 1X ONCE IV 12/01/16 18:30 12/01/16 18:33 DC 12/01/16 18:30 Imaging: Imaging: CXR 12/01/16 Impression: 1. No acute cardiopulmonary process seen. 2. Emphysematous changes with chronic changes in both lung bases. Chest CTA 12/01/16 Impression: 1. No convincing evidence of pulmonary embolism. 2. Mild bilateral emphysematous changes with a linear left basilar atelectasis. 3. Probable left superior renal pole cyst PE: GEN: NAD HEENT: Atraumatic, PERRL LUNGS: tight, insp and exp wheezing HEART: tachycardic ABD: NABS, S/ND/NT EXTREMITY: trace BLE edema SKIN: No rashes, no jaundice NEURO/PSYCH: A & O 3 A/P: A/P: COPD Change in bowel habits -h/o constipation controlled w/ prune and Miralax PRN -about 1 week ago started passing clear/pink mucous, noted on pad, malodorous -also has soft dark stools, sometimes during the night GERD, hiatal hernia -on PPI Q a.m. + H2 albin QHS, some breakthrough nocturnal reflux -previous EGD years ago CRC screen, + Cologuard test -previous colonoscopy years ago -repeat colonoscopy not recommended w/ pulm status Anemia -Hgb improved on iron -- C Diff ordered, await this. Will review w/ Dr. Dejesus. DEVAN NEIL December 02, 2016 12:16
--- NOTE | 2016-12-02 12:24 | PDOC ---
Provider Note Provider Note [id number] acute on chronic resp fail copd w ae acute bronchitis see orders. IFEANYI NICHOLAS MD December 02, 2016 12:24
[2016-12-02] MEDS: BUDESONIDE 0.5 MG/2 ML NEBU. NEB SCH ×2 (13:00→19:53)
[2016-12-02] MEDS: INSULIN ASPART 300 UNITS/3 ML INSULN.PEN SQ SCH ×2 (13:02→18:18)
[2016-12-02] MEDS: DOCUSATE SODIUM 100 MG CAPSULE. PO SCH (13:10)
[2016-12-02] MEDS: NYSTATIN 100,000 UNITS/ML 5 ML ORAL.SUSP. SWSW SCH ×3 (13:10→21:25)
--- NOTE | 2016-12-02 13:25 | CONS ---
DATE OF CONSULTATION: 12/02/2016 I was asked to see this 76-year-old lady for acute on chronic respiratory failure, acute exacerbation of COPD. HISTORY OF PRESENT ILLNESS: She has history of more than [id number] smoking, continues to smoke about half pack per day. She is on oxygen at 3 liters per minute via nasal cannula continuously, on 4 liters with activity. She was seen in Dr. Pichardo's office with increased shortness of breath and wheezing. Her oxygen saturation was checked in her office, it was between 70-80%. She was admitted for further evaluation. She has had increased shortness of breath. She has occasional cough with no sputum production. She has runny nose. She has had some abdominal pain and gastroesophageal reflux symptoms. PAST MEDICAL HISTORY: COPD, chronic respiratory failure, paroxysmal atrial fibrillation, hypertension, history of DVT, gastroesophageal reflux disease, obesity, obstructive sleep apnea-hypopnea syndrome, CPAP intolerance, back pain, cataract surgery. ALLERGIES: SULFA. MEDICATIONS: Currently she is on DuoNeb, insulin, nystatin, Ambien, Colace, Protonix, Solu-Medrol 80 mg IV every 8, gabapentin, Eliquis, Levaquin. SOCIAL HISTORY: History of more than [id number] smoking, continues to smoke half pack per day. FAMILY HISTORY: Positive for hypertension. REVIEW OF SYSTEMS: As mentioned as above, other systems otherwise negative. PHYSICAL EXAMINATION: GENERAL: This is an obese lady. VITAL SIGNS: O2 saturation is 92% on 4 liters of oxygen, respiratory rate 20, heart rate 86, blood pressure 126/69, temperature 97.7. HEENT: Normocephalic, atraumatic. Pupils equal, round, reactive to light. There is shallow oropharynx. Nose is clear. NECK: There is no JVD, lymphadenopathy or thyromegaly. CARDIOVASCULAR: Irregular rhythm. CHEST: Inspection is normal. LUNGS: There are bibasilar crackles, end expiratory wheezing. ABDOMEN: Soft and obese. Bowel sounds are good. There is no mass. EXTREMITIES: There is edema. LYMPHATICS: There is no lymphadenopathy. NEUROLOGIC: She is alert and oriented. SKIN: Chronic changes. LABORATORY DATA: I reviewed the following lab data: CT shows emphysematous changes, no PE, left basilar atelectasis. WBC 10.3, hemoglobin 12.8, platelets 211. Sodium 142, potassium 3.3, chloride 99, CO2 35, glucose 192, BUN 19, and creatinine 1. IMPRESSION: 1. Acute on chronic respiratory failure, multifactorial in etiology including acute exacerbation of chronic obstructive pulmonary disease, acute bronchitis versus others. 2. Abnormal CT of the chest. 3. Acute exacerbation of chronic obstructive pulmonary disease. 4. Acute bronchitis. 5. Obstructive sleep apnea-hypopnea syndrome, CPAP intolerance. 6. Gastroesophageal reflux disease. 7. Atrial fibrillation. 8. History of deep venous thrombosis. 9. Hyperlipidemia. 10. Tobacco habituation. PLAN AND RECOMMENDATIONS: 1. I had a long discussion with her regarding smoking cessation. I have advised her to stop smoking forever. 2. Titrate FiO2 to keep O2 saturation 90%. 3. Bronchodilator. 4. Add inhaled corticosteroid. 5. Continue Solu-Medrol. 6. Continue Levaquin. 7. Protonix for stress ulcer prophylaxis. 8. She is on Eliquis, monitor for bleeding. 9. I had a long discussion with her regarding obstructive sleep apnea-hypopnea syndrome and the importance of treatment, she understands, but she is not able tolerate CPAP or BiPAP. 10. The findings and recommendations were discussed with the patient and her family. She understood and agreed to proceed with the plan. I have answered all of her questions. Thank you very much for allowing me to participate in the care of this very nice lady. IFEANYI NICHOLAS M.D. : Louisa JOB#: [id number] / [id number] COSMO
[2016-12-02 15:00] VITALS: BP 139/71
[2016-12-02 19:00] VITALS: BP 140/74
[2016-12-02] MEDS: ZOLPIDEM 5 MG TABLET. PO PRN (21:31)
[2016-12-02 23:00] VITALS: BP 128/69
[2016-12-03] MEDS: ALBUTEROL SULFATE 2.5 MG/3 ML NEBU. NEB PRN (02:49)
[2016-12-03 03:00] VITALS: BP 160/73
[2016-12-03 05:27] LABS: HEMATOCRIT 39.1 % (36.0-47.0); HEMOGLOBIN 12.4 g/dL (12.0-15.5); RED BLOOD COUNT 4.53 x10^6/uL (3.50-5.40); RED CELL DISTRIBUTION WIDTH 27.2 % (11.5-14.5)
[2016-12-03 05:35] LABS: CALCIUM 9.4 mg/dL (8.5-10.1); CREATININE 1.1 mg/dL (0.6-1.0); GFR 48.3; POTASSIUM 3.6 mmol/L (3.5-5.1)
[2016-12-03] MEDS: methylPREDNISolone SOD SUCC PF 125 MG/2 ML VIAL. IV SCH (06:20)
[2016-12-03] MEDS: IPRATRPIUM/ALBUTEROL 0.5/2.5MG 3 ML NEBU. NEB SCH ×4 (07:22→20:01)
[2016-12-03] MEDS: BUDESONIDE 0.5 MG/2 ML NEBU. NEB SCH ×2 (07:23→20:01)
[2016-12-03 07:27] VITALS: BP 144/66
[2016-12-03] MEDS: GABAPENTIN 300 MG CAPSULE. PO SCH ×3 (08:21→21:59)
[2016-12-03] MEDS: PANTOPRAZOLE 40 MG TABLET.DR. PO SCH (08:21)
[2016-12-03] MEDS: BENZONATATE 100 MG CAPSULE. PO SCH ×3 (08:21→22:00)
[2016-12-03] MEDS: DOCUSATE SODIUM 100 MG CAPSULE. PO SCH (08:21)
[2016-12-03] MEDS: APIXABAN 5 MG TABLET. PO SCH ×2 (08:21→22:00)
[2016-12-03] MEDS: INSULIN ASPART 300 UNITS/3 ML INSULN.PEN SQ SCH ×3 (08:29→17:23)
[2016-12-03] MEDS: NYSTATIN 100,000 UNITS/ML 5 ML ORAL.SUSP. SWSW SCH ×4 (09:34→21:59)
--- NOTE | 2016-12-03 10:01 | PDOC ---
PULMONARY PROGRESS NOTES Subjective not feeling good today, has sob. cough, sputum, no pain Vitals Vital Signs Date Time Temp Pulse Resp B/P (MAP) Pulse Ox O2 Delivery O2 Flow Rate FiO2 12/03/16 07:45 Nasal Cannula 3.0 12/03/16 07:27 96.5 92 18 144/66 (92) 96 96.5 General: Alert, Oriented X4, No acute distress HEENT: Other (nc at perrl, nose inflamed mucosa) Lungs: Other (deminished) Cardiovascular: S1, S2 Abdomen: Soft, Non-tender Neuro Exam: Alert Extremities: No Edema, Other Skin: Warm Labs Laboratory Tests Test 12/01/16 17:45 12/02/16 04:50 12/02/16 15:05 12/02/16 16:45 White Blood Count 10.4 x10^3/uL (4.0-11.0) 10.3 x10^3/uL (4.0-11.0) Red Blood Count 4.27 x10^6/uL (3.50-5.40) 4.58 x10^6/uL (3.50-5.40) Hemoglobin 12.0 g/dL (12.0-15.5) 12.8 g/dL (12.0-15.5) Hematocrit 36.0 % (36.0-47.0) 38.7 % (36.0-47.0) Mean Corpuscular Volume 84 fL (79-100) 85 fL (79-100) Mean Corpuscular Hemoglobin 28 pg (25-35) 28 pg (25-35) Mean Corpuscular Hemoglobin Concent 33 g/dL (31-37) 33 g/dL (31-37) Red Cell Distribution Width 27.4 % (11.5-14.5) 27.8 % (11.5-14.5) Platelet Count 199 x10^3/uL (140-400) 211 x10^3/uL (140-400) Neutrophils (%) (Auto) 79 % (31-73) 94 % (31-73) Lymphocytes (%) (Auto) 12 % (24-48) 5 % (24-48) Monocytes (%) (Auto) 7 % (0-9) 1 % (0-9) Eosinophils (%) (Auto) 1 % (0-3) 0 % (0-3) Basophils (%) (Auto) 1 % (0-3) 0 % (0-3) Neutrophils # (Auto) 8.2 x10^3uL (1.8-7.7) 9.7 x10^3uL (1.8-7.7) Lymphocytes # (Auto) 1.3 x10^3/uL (1.0-4.8) 0.5 x10^3/uL (1.0-4.8) Monocytes # (Auto) 0.7 x10^3/uL (0.0-1.1) 0.1 x10^3/uL (0.0-1.1) Eosinophils # (Auto) 0.1 x10^3/uL (0.0-0.7) 0.0 x10^3/uL (0.0-0.7) Basophils # (Auto) 0.1 x10^3/uL (0.0-0.2) 0.0 x10^3/uL (0.0-0.2) Platelet Estimate Adequate (ADEQUATE) Polychromasia Slight Anisocytosis Marked Sodium Level 142 mmol/L (136-145) 141 mmol/L (136-145) Potassium Level 3.1 mmol/L (3.5-5.1) 3.3 mmol/L (3.5-5.1) Chloride Level 102 mmol/L (98-107) 99 mmol/L (98-107) Carbon Dioxide Level 37 mmol/L (21-32) 35 mmol/L (21-32) Anion Gap 3 (6-14) 7 (6-14) Blood Urea Nitrogen 18 mg/dL (7-20) 19 mg/dL (7-20) Creatinine 1.0 mg/dL (0.6-1.0) 1.0 mg/dL (0.6-1.0) Estimated GFR (Cockcroft-Gault) 53.9 53.9 BUN/Creatinine Ratio 18 (6-20) Glucose Level 109 mg/dL (70-99) 192 mg/dL (70-99) Calcium Level 8.9 mg/dL (8.5-10.1) 9.3 mg/dL (8.5-10.1) Total Bilirubin 0.3 mg/dL (0.2-1.0) Aspartate Amino Transf (AST/SGOT) 17 U/L (15-37) Alanine Aminotransferase (ALT/SGPT) 26 U/L (14-59) Alkaline Phosphatase 61 U/L (46-116) CU-Ken-K-Type Natriuretic Peptide 120 pg/mL (0-449) Total Protein 6.3 g/dL (6.4-8.2) Albumin 2.9 g/dL (3.4-5.0) Albumin/Globulin Ratio 0.9 (1.0-1.7) Hemoglobin A1c 5.4 % (4.8-5.6) Clostridium difficile Toxin (PCR) Positive (Negative) Glucose (Fingerstick) 199 mg/dL (70-99) Test 12/02/16 21:06 12/03/16 04:55 12/03/16 07:31 Glucose (Fingerstick) 289 mg/dL (70-99) 197 mg/dL (70-99) White Blood Count 16.0 x10^3/uL (4.0-11.0) Red Blood Count 4.53 x10^6/uL (3.50-5.40) Hemoglobin 12.4 g/dL (12.0-15.5) Hematocrit 39.1 % (36.0-47.0) Mean Corpuscular Volume 86 fL (79-100) Mean Corpuscular Hemoglobin 27 pg (25-35) Mean Corpuscular Hemoglobin Concent 32 g/dL (31-37) Red Cell Distribution Width 27.2 % (11.5-14.5) Platelet Count 206 x10^3/uL (140-400) Sodium Level 142 mmol/L (136-145) Potassium Level 3.6 mmol/L (3.5-5.1) Chloride Level 102 mmol/L (98-107) Carbon Dioxide Level 33 mmol/L (21-32) Anion Gap 7 (6-14) Blood Urea Nitrogen 29 mg/dL (7-20) Creatinine 1.1 mg/dL (0.6-1.0) Estimated GFR (Cockcroft-Gault) 48.3 Glucose Level 203 mg/dL (70-99) Calcium Level 9.4 mg/dL (8.5-10.1) Laboratory Tests Test 12/02/16 15:05 12/02/16 16:45 12/02/16 21:06 12/03/16 04:55 Clostridium difficile Toxin (PCR) Positive (Negative) Glucose (Fingerstick) 199 mg/dL (70-99) 289 mg/dL (70-99) White Blood Count 16.0 x10^3/uL (4.0-11.0) Red Blood Count 4.53 x10^6/uL (3.50-5.40) Hemoglobin 12.4 g/dL (12.0-15.5) Hematocrit 39.1 % (36.0-47.0) Mean Corpuscular Volume 86 fL (79-100) Mean Corpuscular Hemoglobin 27 pg (25-35) Mean Corpuscular Hemoglobin Concent 32 g/dL (31-37) Red Cell Distribution Width 27.2 % (11.5-14.5) Platelet Count 206 x10^3/uL (140-400) Sodium Level 142 mmol/L (136-145) Potassium Level 3.6 mmol/L (3.5-5.1) Chloride Level 102 mmol/L (98-107) Carbon Dioxide Level 33 mmol/L (21-32) Anion Gap 7 (6-14) Blood Urea Nitrogen 29 mg/dL (7-20) Creatinine 1.1 mg/dL (0.6-1.0) Estimated GFR (Cockcroft-Gault) 48.3 Glucose Level 203 mg/dL (70-99) Calcium Level 9.4 mg/dL (8.5-10.1) Test 12/03/16 07:31 Glucose (Fingerstick) 197 mg/dL (70-99) Medications Active Scripts Medications Dose Route/Sig Max Daily Dose Days Date Category Gabapentin 300 Mg Capsule 300 Mg PO TID 10/16/16 Rx Feosol (Ferrous Sulfate) 325 Mg Tablet 325 Mg PO BID 10/16/16 Rx Senna-Time S Tablet (Sennosides/Docusate Sodium) 1 Each Tablet 1 Tab PO PRN BID PRN 10/16/16 Rx Prednisone 20 Mg Tablet 40 Mg PO DAILY 10/16/16 Rx Colace (Docusate Sodium) 100 Mg Capsule 100 Mg PO PRN BID PRN 10/16/16 Rx Vitamin B-12 (Cyanocobalamin (Vitamin B-12)) 1,000 Mcg Tablet 1,000 Mcg PO DAILY 10/16/16 Rx Gabapentin 300 Mg Capsule 300 Mg PO BID 07/06/16 Reported Voltaren (Diclofenac Sodium) 100 Gm Gel..gram. 1 Gm TP QID PRN 06/20/16 Reported Stool Softener (Docusate Sodium) 100 Mg Tablet 100 Mg PO DAILY 06/20/16 Reported Benzonatate 100 Mg Capsule 100 Mg PO DAILY PRN 06/20/16 Reported Citracal + D Er Tablet (Calcium Carb & Cit/Vitamin D3) 1 Each Tablet.er 1 Each PO DAILY 06/20/16 Reported Hydrochlorothiazide Capsule (Hydrochlorothiazide) 12.5 Mg Capsule 1 Cap PO DAILY PRN 06/20/16 Reported Mucinex (Guaifenesin) 600 Mg Tablet.er 600 Mg PO BID 7 04/22/16 Rx Midodrine Hcl 5 Mg Tablet 5 Mg PO TID 11/24/15 Reported Eliquis (Apixaban) 5 Mg Tablet 10 Mg PO DAILY 11/24/15 Reported Potassium Chloride 10 Meq Tablet.er 10 Meq PO QODAY 11/24/15 Reported Albuterol Sulfate Neb Soln (Albuterol Sulfate) 0.63 Mg/3 Ml Vial.neb 1 Vial NEB PRN TID PRN 09/25/15 Reported Pepcid (Famotidine) 20 Mg Tablet 10 Mg PO HS 07/29/15 Reported Duoneb 0.5-3(2.5) Mg/3 Ml (Albuterol/Ipratropium) 3 Ml Ampul.neb 3 Ml IH QID 03/24/15 Reported Omeprazole 20 Mg Capsule. 1 Cap PO DAILY 02/27/14 Reported Impression . IMPRESSION: 1. Acute on chronic respiratory failure, multifactorial in etiology including acute exacerbation of chronic obstructive pulmonary disease, acute bronchitis versus others. 2. Abnormal CT of the chest. 3. Acute exacerbation of chronic obstructive pulmonary disease. 4. Acute bronchitis. 5. Obstructive sleep apnea-hypopnea syndrome, CPAP intolerance. 6. Gastroesophageal reflux disease. 7. Atrial fibrillation. 8. History of deep venous thrombosis. 9. Hyperlipidemia. 10. Tobacco habituation. 11. allergic rhinitis Plan . PLAN AND RECOMMENDATIONS: 1. I had a long discussion with her regarding smoking cessation. I have advised her to stop smoking forever. 2. Titrate FiO2 to keep O2 saturation 90%. 3. Bronchodilator. 4. inhaled corticosteroid. 5. change to Solu-Medrol 40 mg q 8hrs. 6. Continue Levaquin. 7. Protonix for stress ulcer prophylaxis. 8. She is on Eliquis, monitor for bleeding. 9. I had a long discussion with her regarding obstructive sleep apnea-hypopnea syndrome and the importance of treatment, she understands, but she is not able tolerate CPAP or BiPAP. 10. add singulair The findings and recommendations were discussed with the patient and her family. She understood and agreed to proceed with the plan. I have answered all of her questions. IFEANYI NICHOLAS MD December 03, 2016 10:01
[2016-12-03 10:30] VITALS: BP 135/78
--- NOTE | 2016-12-03 11:16 | PDOC ---
GENERAL General: vss and afebrile. awake and alert and family in attendance. c.diff + and just started on flagyl. mucousy stinky stools per patient. breathing little better. chest with decreased breath sounds and heart regular. ongoing treatment for exac of copd. wbc increased to 16K which could be c.diff or iv steroids. BUN and creatinine increased and will watch same as may need hydration. Problems: VITAL SIGNS Vital Signs: Vital Signs Date Time Temp Pulse Resp B/P (MAP) Pulse Ox O2 Delivery O2 Flow Rate FiO2 12/03/16 07:45 Nasal Cannula 3.0 12/03/16 07:27 96.5 92 18 144/66 (92) 96 96.5 I & O I & O Intake and Output 12/03/16 07:00 Intake Total 600 ml Output Total 251 ml Balance 349 ml Intake Oral 600 ml Output Urine Total 250 ml Stool Total 1 ml # Voids 4 ALLERGIES Allergies: Allergies Coded Allergies Type Severity Reaction Last Updated Verified Sulfa (Sulfonamide Antibiotics) Allergy Intermediate Rash 12/01/16 Yes MEDS Medications: Current Medications Medications (Trade) Dose Ordered Sig/Ck Start Time Stop Time Status Last Admin Dose Admin Acetaminophen (Tylenol) 325 mg PRN Q4HRS PRN 12/01/16 17:00 Albuterol Sulfate (Ventolin Neb Soln) 3 mg PRN Q2HRS PRN 12/01/16 18:30 12/03/16 02:49 2.5 MG Albuterol/ Ipratropium (Duoneb) 3 ml RTQID 12/01/16 20:00 12/03/16 07:22 3 ML Alprazolam (Xanax) 0.5 mg PRN Q8HRS PRN 12/01/16 17:00 Apixaban (Eliquis) 5 mg BID 12/01/16 21:00 12/03/16 08:21 5 MG Benzonatate (Tessalon Perle) 100 mg [id number] 12/01/16 21:00 12/03/16 08:21 100 MG Budesonide (Pulmicort) 0.5 mg RTBID 12/02/16 13:00 12/03/16 07:23 0.5 MG Dextrose (Dextrose 50%-Water Syringe) 12.5 gm PRN Q15MIN PRN 12/02/16 10:00 Docusate Sodium (Colace) 100 mg DAILY 12/02/16 09:00 12/03/16 08:21 100 MG Furosemide (Lasix) 20 mg 1X ONCE 12/01/16 17:00 12/01/16 17:32 DC 12/01/16 18:19 20 MG Gabapentin (Neurontin) 300 mg TID 12/01/16 21:00 12/03/16 08:21 300 MG Info (Anti-Coagulation Monitoring By Pharmacy) 1 each PRN DAILY PRN 12/01/16 17:30 12/02/16 12:53 1 EACH Info (Do NOT chart on this entry -- for MONITORING) 1 each PRN DAILY PRN 12/01/16 18:45 12/03/16 18:44 Insulin Aspart (NovoLOG) 0-5 UNITS TIDWMEALS 12/02/16 12:00 12/03/16 08:29 2 UNITS Iohexol (Omnipaque 300 Mg/ml) 60 ml 1X ONCE 12/01/16 18:30 12/01/16 18:33 DC 12/01/16 18:30 60 ML Levofloxacin (Levaquin) 500 mg DAILY06 12/01/16 17:00 12/03/16 06:20 500 MG Methylprednisolone Sodium Succinate (SOLU-Medrol 40MG VIAL) 40 mg Q8HRS 12/03/16 14:00 Methylprednisolone Sodium Succinate (Solu-Medrol 125mg Vial) 80 mg Q8HRS 12/01/16 22:00 12/03/16 10:02 DC 12/03/16 06:20 80 MG Metronidazole (Flagyl) 500 mg Q8HRS 12/03/16 14:00 Montelukast Sodium (Singulair) 10 mg QHS 12/03/16 21:00 Nystatin 5 ml [id number] 12/02/16 13:00 12/03/16 09:34 5 ML Pantoprazole Sodium (Protonix) 40 mg DAILYAC 12/02/16 07:30 12/03/16 08:21 40 MG Potassium Chloride (Klor-Con) 40 meq 1X ONCE 12/02/16 09:15 12/02/16 09:16 DC 12/02/16 13:10 40 MEQ Zolpidem Tartrate (Ambien) 5 mg PRN QHS PRN 12/02/16 09:45 12/02/16 21:31 5 MG LAB Lab: Laboratory Tests Test 12/02/16 15:05 12/02/16 16:45 12/02/16 21:06 12/03/16 04:55 Clostridium difficile Toxin (PCR) Positive (Negative) Glucose (Fingerstick) 199 mg/dL (70-99) 289 mg/dL (70-99) White Blood Count 16.0 x10^3/uL (4.0-11.0) Red Blood Count 4.53 x10^6/uL (3.50-5.40) Hemoglobin 12.4 g/dL (12.0-15.5) Hematocrit 39.1 % (36.0-47.0) Mean Corpuscular Volume 86 fL (79-100) Mean Corpuscular Hemoglobin 27 pg (25-35) Mean Corpuscular Hemoglobin Concent 32 g/dL (31-37) Red Cell Distribution Width 27.2 % (11.5-14.5) Platelet Count 206 x10^3/uL (140-400) Sodium Level 142 mmol/L (136-145) Potassium Level 3.6 mmol/L (3.5-5.1) Chloride Level 102 mmol/L (98-107) Carbon Dioxide Level 33 mmol/L (21-32) Anion Gap 7 (6-14) Blood Urea Nitrogen 29 mg/dL (7-20) Creatinine 1.1 mg/dL (0.6-1.0) Estimated GFR (Cockcroft-Gault) 48.3 Glucose Level 203 mg/dL (70-99) Calcium Level 9.4 mg/dL (8.5-10.1) Test 12/03/16 07:31 Glucose (Fingerstick) 197 mg/dL (70-99) ROSA BHARDWAJ MD December 03, 2016 11:16
[2016-12-03] MEDS: methylPREDNISolone SOD SUCC PF 40 MG/ML VIAL. IV SCH ×2 (13:37→22:00)
[2016-12-03] MEDS: metroNIDAZOLE 500 MG TABLET PO SCH ×2 (13:39→22:00)
[2016-12-03 14:50] VITALS: BP 131/77
[2016-12-03 19:00] VITALS: BP 135/71
[2016-12-03] MEDS: MONTELUKAST SODIUM 10 MG TABLET. PO SCH (21:59)
[2016-12-03 23:00] VITALS: BP 138/76
[2016-12-03] MEDS: ZOLPIDEM 5 MG TABLET. PO PRN (23:04)
[2016-12-04 03:00] VITALS: BP 113/64
[2016-12-04] MEDS: ALBUTEROL SULFATE 2.5 MG/3 ML NEBU. NEB PRN (03:38)
[2016-12-04] MEDS: methylPREDNISolone SOD SUCC PF 40 MG/ML VIAL. IV SCH ×2 (06:24→21:05)
[2016-12-04] MEDS: PANTOPRAZOLE 40 MG TABLET.DR. PO SCH (06:24)
[2016-12-04] MEDS: metroNIDAZOLE 500 MG TABLET PO SCH ×3 (06:25→21:04)
[2016-12-04 07:29] LABS: CALCIUM 8.9 mg/dL (8.5-10.1); CREATININE 0.9 mg/dL (0.6-1.0); GFR 60.9
[2016-12-04 07:44] VITALS: BP 136/74
[2016-12-04] MEDS: APIXABAN 5 MG TABLET. PO SCH ×2 (08:09→21:04)
[2016-12-04] MEDS: NYSTATIN 100,000 UNITS/ML 5 ML ORAL.SUSP. SWSW SCH ×4 (08:09→21:04)
[2016-12-04] MEDS: GABAPENTIN 300 MG CAPSULE. PO SCH ×3 (08:10→21:04)
[2016-12-04] MEDS: BENZONATATE 100 MG CAPSULE. PO SCH ×3 (08:10→21:04)
[2016-12-04] MEDS: DOCUSATE SODIUM 100 MG CAPSULE. PO SCH (08:10)
[2016-12-04] MEDS: INSULIN ASPART 300 UNITS/3 ML INSULN.PEN SQ SCH ×3 (08:16→16:50)
[2016-12-04] MEDS: IPRATRPIUM/ALBUTEROL 0.5/2.5MG 3 ML NEBU. NEB SCH ×4 (08:38→21:15)
[2016-12-04] MEDS: BUDESONIDE 0.5 MG/2 ML NEBU. NEB SCH ×3 (08:38→21:15)
--- NOTE | 2016-12-04 10:15 | PDOC ---
PULMONARY PROGRESS NOTES Subjective feeling better today, has sob, better. has cough, sputum, no pain, has diarrhea Vitals Vital Signs Date Time Temp Pulse Resp B/P (MAP) Pulse Ox O2 Delivery O2 Flow Rate FiO2 12/04/16 08:40 95 Nasal Cannula 3.0 12/04/16 07:44 97.5 79 20 136/74 (94) 97.5 General: Alert, Oriented X4, No acute distress HEENT: Other (nc at perrl, nose inflamed mucosa) Lungs: Other (deminished) Cardiovascular: S1, S2 Abdomen: Soft, Non-tender Neuro Exam: Alert Extremities: No Edema, Other Skin: Warm Labs Laboratory Tests Test 12/02/16 12:25 12/02/16 15:05 12/02/16 16:45 12/02/16 21:06 Glucose (Fingerstick) 219 mg/dL (70-99) 199 mg/dL (70-99) 289 mg/dL (70-99) Clostridium difficile Toxin (PCR) Positive (Negative) Test 12/03/16 04:55 12/03/16 07:31 12/03/16 12:00 12/03/16 16:12 White Blood Count 16.0 x10^3/uL (4.0-11.0) Red Blood Count 4.53 x10^6/uL (3.50-5.40) Hemoglobin 12.4 g/dL (12.0-15.5) Hematocrit 39.1 % (36.0-47.0) Mean Corpuscular Volume 86 fL (79-100) Mean Corpuscular Hemoglobin 27 pg (25-35) Mean Corpuscular Hemoglobin Concent 32 g/dL (31-37) Red Cell Distribution Width 27.2 % (11.5-14.5) Platelet Count 206 x10^3/uL (140-400) Sodium Level 142 mmol/L (136-145) Potassium Level 3.6 mmol/L (3.5-5.1) Chloride Level 102 mmol/L (98-107) Carbon Dioxide Level 33 mmol/L (21-32) Anion Gap 7 (6-14) Blood Urea Nitrogen 29 mg/dL (7-20) Creatinine 1.1 mg/dL (0.6-1.0) Estimated GFR (Cockcroft-Gault) 48.3 Glucose Level 203 mg/dL (70-99) Calcium Level 9.4 mg/dL (8.5-10.1) Glucose (Fingerstick) 197 mg/dL (70-99) 234 mg/dL (70-99) 210 mg/dL (70-99) Test 12/03/16 20:38 12/04/16 06:50 Glucose (Fingerstick) 289 mg/dL (70-99) Sodium Level 145 mmol/L (136-145) Potassium Level 4.0 mmol/L (3.5-5.1) Chloride Level 103 mmol/L (98-107) Carbon Dioxide Level 35 mmol/L (21-32) Anion Gap 7 (6-14) Blood Urea Nitrogen 30 mg/dL (7-20) Creatinine 0.9 mg/dL (0.6-1.0) Estimated GFR (Cockcroft-Gault) 60.9 Glucose Level 174 mg/dL (70-99) Calcium Level 8.9 mg/dL (8.5-10.1) Laboratory Tests Test 12/03/16 12:00 12/03/16 16:12 12/03/16 20:38 12/04/16 06:50 Glucose (Fingerstick) 234 mg/dL (70-99) 210 mg/dL (70-99) 289 mg/dL (70-99) Sodium Level 145 mmol/L (136-145) Potassium Level 4.0 mmol/L (3.5-5.1) Chloride Level 103 mmol/L (98-107) Carbon Dioxide Level 35 mmol/L (21-32) Anion Gap 7 (6-14) Blood Urea Nitrogen 30 mg/dL (7-20) Creatinine 0.9 mg/dL (0.6-1.0) Estimated GFR (Cockcroft-Gault) 60.9 Glucose Level 174 mg/dL (70-99) Calcium Level 8.9 mg/dL (8.5-10.1) Medications Active Scripts Medications Dose Route/Sig Max Daily Dose Days Date Category Gabapentin 300 Mg Capsule 300 Mg PO TID 10/16/16 Rx Feosol (Ferrous Sulfate) 325 Mg Tablet 325 Mg PO BID 10/16/16 Rx Senna-Time S Tablet (Sennosides/Docusate Sodium) 1 Each Tablet 1 Tab PO PRN BID PRN 10/16/16 Rx Prednisone 20 Mg Tablet 40 Mg PO DAILY 10/16/16 Rx Colace (Docusate Sodium) 100 Mg Capsule 100 Mg PO PRN BID PRN 10/16/16 Rx Vitamin B-12 (Cyanocobalamin (Vitamin B-12)) 1,000 Mcg Tablet 1,000 Mcg PO DAILY 10/16/16 Rx Gabapentin 300 Mg Capsule 300 Mg PO BID 07/06/16 Reported Voltaren (Diclofenac Sodium) 100 Gm Gel..gram. 1 Gm TP QID PRN 06/20/16 Reported Stool Softener (Docusate Sodium) 100 Mg Tablet 100 Mg PO DAILY 06/20/16 Reported Benzonatate 100 Mg Capsule 100 Mg PO DAILY PRN 06/20/16 Reported Citracal + D Er Tablet (Calcium Carb & Cit/Vitamin D3) 1 Each Tablet.er 1 Each PO DAILY 06/20/16 Reported Hydrochlorothiazide Capsule (Hydrochlorothiazide) 12.5 Mg Capsule 1 Cap PO DAILY PRN 06/20/16 Reported Mucinex (Guaifenesin) 600 Mg Tablet.er 600 Mg PO BID 7 04/22/16 Rx Midodrine Hcl 5 Mg Tablet 5 Mg PO TID 11/24/15 Reported Eliquis (Apixaban) 5 Mg Tablet 10 Mg PO DAILY 11/24/15 Reported Potassium Chloride 10 Meq Tablet.er 10 Meq PO QODAY 11/24/15 Reported Albuterol Sulfate Neb Soln (Albuterol Sulfate) 0.63 Mg/3 Ml Vial.neb 1 Vial NEB PRN TID PRN 09/25/15 Reported Pepcid (Famotidine) 20 Mg Tablet 10 Mg PO HS 07/29/15 Reported Duoneb 0.5-3(2.5) Mg/3 Ml (Albuterol/Ipratropium) 3 Ml Ampul.neb 3 Ml IH QID 03/24/15 Reported Omeprazole 20 Mg Capsule. 1 Cap PO DAILY 02/27/14 Reported Impression . IMPRESSION: 1. Acute on chronic respiratory failure, multifactorial in etiology including acute exacerbation of chronic obstructive pulmonary disease, acute bronchitis versus others. 2. Abnormal CT of the chest. 3. Acute exacerbation of chronic obstructive pulmonary disease. 4. Acute bronchitis. 5. Obstructive sleep apnea-hypopnea syndrome, CPAP intolerance. 6. Gastroesophageal reflux disease. 7. Atrial fibrillation. 8. History of deep venous thrombosis. 9. Hyperlipidemia. 10. Tobacco habituation. 11. allergic rhinitis 12. c diff colitis Plan . PLAN AND RECOMMENDATIONS: 1. I had a long discussion with her regarding smoking cessation. I have advised her to stop smoking forever. 2. Titrate FiO2 to keep O2 saturation 90%. 3. Bronchodilator. 4. inhaled corticosteroid. 5. change to Solu-Medrol 40 mg q 12 hrs. 6. Continue rocephin, flagyl started 7. Protonix for stress ulcer prophylaxis. 8. She is on Eliquis, monitor for bleeding. 9. I had a long discussion with her regarding obstructive sleep apnea-hypopnea syndrome and the importance of treatment, she understands, but she is not able tolerate CPAP or BiPAP. 10. singulair The findings and recommendations were discussed with the patient and her family. She understood and agreed to proceed with the plan. I have answered all of her questions. IFEANYI NICHOLAS MD December 04, 2016 10:14
[2016-12-04 10:42] VITALS: BP 137/74
--- NOTE | 2016-12-04 11:51 | PDOC ---
GENERAL General: vss and afebrile. wbc increased to 16K. awake and alert and definitely feels better. not sure stools have slowed any to date however. has good appetite though. continued treatment for exac copd and c.diff colitis. exam stable. Problems: VITAL SIGNS Vital Signs: Vital Signs Date Time Temp Pulse Resp B/P (MAP) Pulse Ox O2 Delivery O2 Flow Rate FiO2 12/04/16 10:42 97.7 20 137/74 (95) 95 Nasal Cannula 3.0 97.7 12/04/16 07:44 79 I & O I & O Intake and Output 12/04/16 07:00 Intake Total 1020 ml Balance 1020 ml Intake Oral 1020 ml # Voids 4 # Bowel Movements 1 ALLERGIES Allergies: Allergies Coded Allergies Type Severity Reaction Last Updated Verified Sulfa (Sulfonamide Antibiotics) Allergy Intermediate Rash 12/01/16 Yes MEDS Medications: Current Medications Medications (Trade) Dose Ordered Sig/Ck Start Time Stop Time Status Last Admin Dose Admin Acetaminophen (Tylenol) 325 mg PRN Q4HRS PRN 12/01/16 17:00 Albuterol Sulfate (Ventolin Neb Soln) 3 mg PRN Q2HRS PRN 12/01/16 18:30 12/04/16 03:38 3 MG Albuterol/ Ipratropium (Duoneb) 3 ml RTQID 12/01/16 20:00 12/04/16 08:38 3 ML Alprazolam (Xanax) 0.5 mg PRN Q8HRS PRN 12/01/16 17:00 Apixaban (Eliquis) 5 mg BID 12/01/16 21:00 12/04/16 08:09 5 MG Benzonatate (Tessalon Perle) 100 mg [id number] 12/01/16 21:00 12/04/16 08:10 100 MG Budesonide (Pulmicort) 0.5 mg RTBID 12/02/16 13:00 12/04/16 08:38 0.5 MG Ceftriaxone Sodium 1 gm/ Sodium Chloride 50 ml @ 100 mls/hr Q24H 12/03/16 15:00 12/03/16 15:41 100 MLS/HR Dextrose (Dextrose 50%-Water Syringe) 12.5 gm PRN Q15MIN PRN 12/02/16 10:00 Docusate Sodium (Colace) 100 mg DAILY 12/02/16 09:00 12/04/16 08:10 100 MG Furosemide (Lasix) 20 mg 1X ONCE 12/01/16 17:00 12/01/16 17:32 DC 12/01/16 18:19 20 MG Gabapentin (Neurontin) 300 mg TID 12/01/16 21:00 12/04/16 08:10 300 MG Info (Anti-Coagulation Monitoring By Pharmacy) 1 each PRN DAILY PRN 12/01/16 17:30 12/02/16 12:53 1 EACH Info (Do NOT chart on this entry -- for MONITORING) 1 each PRN DAILY PRN 12/01/16 18:45 12/03/16 18:44 DC Insulin Aspart (NovoLOG) 0-5 UNITS TIDWMEALS 12/02/16 12:00 12/04/16 08:16 2 UNITS Iohexol (Omnipaque 300 Mg/ml) 60 ml 1X ONCE 12/01/16 18:30 12/01/16 18:33 DC 12/01/16 18:30 60 ML Levofloxacin (Levaquin) 500 mg DAILY06 12/01/16 17:00 12/03/16 14:26 DC 12/03/16 06:20 500 MG Methylprednisolone Sodium Succinate (SOLU-Medrol 40MG VIAL) 40 mg Q12HR 12/04/16 21:00 Methylprednisolone Sodium Succinate (Solu-Medrol 125mg Vial) 80 mg Q8HRS 12/01/16 22:00 12/03/16 10:02 DC 12/03/16 06:20 80 MG Metronidazole (Flagyl) 500 mg Q8HRS 12/03/16 14:00 12/04/16 06:25 500 MG Montelukast Sodium (Singulair) 10 mg QHS 12/03/16 21:00 12/03/16 21:59 10 MG Nystatin 5 ml [id number] 12/02/16 13:00 12/04/16 08:09 5 ML Pantoprazole Sodium (Protonix) 40 mg DAILYAC 12/02/16 07:30 12/04/16 06:24 40 MG Potassium Chloride (Klor-Con) 40 meq 1X ONCE 12/02/16 09:15 12/02/16 09:16 DC 12/02/16 13:10 40 MEQ Zolpidem Tartrate (Ambien) 5 mg PRN QHS PRN 12/02/16 09:45 12/03/16 23:04 5 MG LAB Lab: Laboratory Tests Test 12/03/16 12:00 12/03/16 16:12 12/03/16 20:38 12/04/16 06:50 Glucose (Fingerstick) 234 mg/dL (70-99) 210 mg/dL (70-99) 289 mg/dL (70-99) Sodium Level 145 mmol/L (136-145) Potassium Level 4.0 mmol/L (3.5-5.1) Chloride Level 103 mmol/L (98-107) Carbon Dioxide Level 35 mmol/L (21-32) Anion Gap 7 (6-14) Blood Urea Nitrogen 30 mg/dL (7-20) Creatinine 0.9 mg/dL (0.6-1.0) Estimated GFR (Cockcroft-Gault) 60.9 Glucose Level 174 mg/dL (70-99) Calcium Level 8.9 mg/dL (8.5-10.1) ROSA BHARDWAJ MD December 04, 2016 11:51
[2016-12-04 14:35] VITALS: BP 154/88
[2016-12-04 19:00] VITALS: BP 133/89
[2016-12-04] MEDS: ZOLPIDEM 5 MG TABLET. PO PRN (21:04)
[2016-12-04] MEDS: MONTELUKAST SODIUM 10 MG TABLET. PO SCH (21:04)
[2016-12-04] MEDS ORDERED: ONDANSETRON PF 4 MG/2 ML VIAL. IV PRN (21:15)
[2016-12-04 23:00] VITALS: BP 142/76
[2016-12-05 03:00] VITALS: BP 117/93
[2016-12-05] MEDS: metroNIDAZOLE 500 MG TABLET PO SCH ×3 (05:43→21:12)
[2016-12-05 07:00] VITALS: BP 133/71
[2016-12-05] MEDS: IPRATRPIUM/ALBUTEROL 0.5/2.5MG 3 ML NEBU. NEB SCH ×4 (07:57→19:38)
[2016-12-05] MEDS: BUDESONIDE 0.5 MG/2 ML NEBU. NEB SCH ×2 (07:58→19:38)
[2016-12-05] MEDS: INSULIN ASPART 300 UNITS/3 ML INSULN.PEN SQ SCH ×3 (08:00→18:54)
[2016-12-05] MEDS: DOCUSATE SODIUM 100 MG CAPSULE. PO SCH (09:00)
[2016-12-05] MEDS: methylPREDNISolone SOD SUCC PF 40 MG/ML VIAL. IV SCH (09:18)
[2016-12-05] MEDS: PANTOPRAZOLE 40 MG TABLET.DR. PO SCH (09:18)
[2016-12-05] MEDS: GABAPENTIN 300 MG CAPSULE. PO SCH ×3 (09:19→21:12)
[2016-12-05] MEDS: APIXABAN 5 MG TABLET. PO SCH ×2 (09:19→21:11)
[2016-12-05] MEDS: NYSTATIN 100,000 UNITS/ML 5 ML ORAL.SUSP. SWSW SCH ×4 (09:19→21:12)
[2016-12-05] MEDS: BENZONATATE 100 MG CAPSULE. PO SCH ×3 (09:19→21:11)
[2016-12-05 11:00] VITALS: BP 119/56
--- NOTE | 2016-12-05 11:22 | PDOC ---
Subjective: Subjective: A bit tearful, got dizzy in the restroom and had an accident (urine). Stools improving - not frequent, not sure about mucous - thinks "half and half" (half regular-colored stool). Thinks breathing better but has coughing fits. Objective: Vital Signs: Vital Signs Date Time Temp Pulse Resp B/P (MAP) Pulse Ox O2 Delivery O2 Flow Rate FiO2 12/05/16 08:01 98 Nasal Cannula 3.0 12/05/16 03:00 97.7 86 20 117/93 (101) 97.7 Labs: Laboratory Tests Test 12/04/16 11:31 12/04/16 16:35 12/04/16 20:51 12/05/16 07:32 Glucose (Fingerstick) 297 mg/dL 171 mg/dL 223 mg/dL 144 mg/dL PE: GEN: NAD LUNGS: nasal cannula, dry breathless coughing, tight HEART: RRR ABD: NABS, S/ND/NT NEURO/PSYCH: A & O 3 A/P: COPD C Diff -on PO metronidazole GERD -on PPI Q a.m. + H2 albin QHS, nocturnal reflux -previous EGD years ago CRC screen, + Cologuard test -previous colonoscopy years ago Anemia -Hgb WNL on iron -- Other per Dr. Dejesus. DEVAN NEIL December 05, 2016 11:22
--- NOTE | 2016-12-05 12:01 | PDOC ---
SUBJECTIVE Subjective phillip this AM , no aparant injury, breathing better, abd discomfort much better OBJECTIVE Vital Signs Vital Signs Date Time Temp Pulse Resp B/P (MAP) Pulse Ox O2 Delivery O2 Flow Rate FiO2 12/05/16 11:47 96 Nasal Cannula 3.0 12/05/16 08:01 98 Nasal Cannula 3.0 12/05/16 03:00 97.7 86 20 117/93 (101) 94 Nasal Cannula 3.0 97.7 12/04/16 23:00 97.5 77 24 142/76 (98) 95 Nasal Cannula 3.0 97.5 12/04/16 21:18 97 Nasal Cannula 3.0 12/04/16 21:16 97 Nasal Cannula 3.0 12/04/16 21:00 Nasal Cannula 3.0 12/04/16 19:00 97.6 94 26 133/89 (104) 93 Nasal Cannula 3.0 97.6 12/04/16 15:36 94 Nasal Cannula 3.0 12/04/16 14:35 96.3 91 20 154/88 (110) 95 Nasal Cannula 3.0 96.3 12/04/16 12:02 94 Nasal Cannula 3.0 I & O Intake and Output 12/05/16 06:59 Intake Total 900 ml Balance 900 ml Intake Oral 900 ml # Voids 3 # Bowel Movements 2 PHYSICAL EXAM Physical Exam lungs much clearer heart RRR abd soft decrease loating ext no edema ASSESSMENT/PLAN Assessment/Plan 1. Acute on chronic respiratory failure due to chronic obstructive pulmonary disease exacerbation. no PE continue Eliquis switch steroid to po today 2- c. diff colitis continue flagyl 2. Fatigue and dizziness. improved 3. Anemia improved 4. Atrial fibrillation on chronic anticoagulation 5. History of deep venous thrombosis. 6. Hyperlipidemia. 7. History of cardiac pacemaker in situ. 8. 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 9. Obesity. 10. hyperglycemia due to steroid will monitor Problems: COMMENT Lab Laboratory Tests Test 12/04/16 16:35 12/04/16 20:51 12/05/16 07:32 12/05/16 10:38 Glucose (Fingerstick) 171 mg/dL (70-99) 223 mg/dL (70-99) 144 mg/dL (70-99) 177 mg/dL (70-99) JAS CARREON MD December 05, 2016 12:01
--- NOTE | 2016-12-05 13:31 | PDOC ---
PULMONARY PROGRESS NOTES Subjective feeling better today, Vitals Vital Signs Date Time Temp Pulse Resp B/P (MAP) Pulse Ox O2 Delivery O2 Flow Rate FiO2 12/05/16 11:47 96 Nasal Cannula 3.0 12/05/16 03:00 97.7 86 20 117/93 (101) 97.7 General: Alert, Oriented X4, No acute distress HEENT: Other (nc at perrl, nose inflamed mucosa) Lungs: Other (deminished) Cardiovascular: S1, S2 Abdomen: Soft, Non-tender Neuro Exam: Alert Extremities: No Edema, Other Skin: Warm Labs Laboratory Tests Test 12/03/16 16:12 12/03/16 20:38 12/04/16 06:50 12/04/16 07:46 Glucose (Fingerstick) 210 mg/dL (70-99) 289 mg/dL (70-99) 164 mg/dL (70-99) Sodium Level 145 mmol/L (136-145) Potassium Level 4.0 mmol/L (3.5-5.1) Chloride Level 103 mmol/L (98-107) Carbon Dioxide Level 35 mmol/L (21-32) Anion Gap 7 (6-14) Blood Urea Nitrogen 30 mg/dL (7-20) Creatinine 0.9 mg/dL (0.6-1.0) Estimated GFR (Cockcroft-Gault) 60.9 Glucose Level 174 mg/dL (70-99) Calcium Level 8.9 mg/dL (8.5-10.1) Test 12/04/16 11:31 12/04/16 16:35 12/04/16 20:51 12/05/16 07:32 Glucose (Fingerstick) 297 mg/dL (70-99) 171 mg/dL (70-99) 223 mg/dL (70-99) 144 mg/dL (70-99) Test 12/05/16 10:38 Glucose (Fingerstick) 177 mg/dL (70-99) Laboratory Tests Test 12/04/16 16:35 12/04/16 20:51 12/05/16 07:32 12/05/16 10:38 Glucose (Fingerstick) 171 mg/dL (70-99) 223 mg/dL (70-99) 144 mg/dL (70-99) 177 mg/dL (70-99) Medications Active Scripts Medications Dose Route/Sig Max Daily Dose Days Date Category Gabapentin 300 Mg Capsule 300 Mg PO TID 10/16/16 Rx Feosol (Ferrous Sulfate) 325 Mg Tablet 325 Mg PO BID 10/16/16 Rx Senna-Time S Tablet (Sennosides/Docusate Sodium) 1 Each Tablet 1 Tab PO PRN BID PRN 10/16/16 Rx Prednisone 20 Mg Tablet 40 Mg PO DAILY 10/16/16 Rx Colace (Docusate Sodium) 100 Mg Capsule 100 Mg PO PRN BID PRN 10/16/16 Rx Vitamin B-12 (Cyanocobalamin (Vitamin B-12)) 1,000 Mcg Tablet 1,000 Mcg PO DAILY 10/16/16 Rx Gabapentin 300 Mg Capsule 300 Mg PO BID 07/06/16 Reported Voltaren (Diclofenac Sodium) 100 Gm Gel..gram. 1 Gm TP QID PRN 06/20/16 Reported Stool Softener (Docusate Sodium) 100 Mg Tablet 100 Mg PO DAILY 06/20/16 Reported Benzonatate 100 Mg Capsule 100 Mg PO DAILY PRN 06/20/16 Reported Citracal + D Er Tablet (Calcium Carb & Cit/Vitamin D3) 1 Each Tablet.er 1 Each PO DAILY 06/20/16 Reported Hydrochlorothiazide Capsule (Hydrochlorothiazide) 12.5 Mg Capsule 1 Cap PO DAILY PRN 06/20/16 Reported Mucinex (Guaifenesin) 600 Mg Tablet.er 600 Mg PO BID 7 04/22/16 Rx Midodrine Hcl 5 Mg Tablet 5 Mg PO TID 11/24/15 Reported Eliquis (Apixaban) 5 Mg Tablet 10 Mg PO DAILY 11/24/15 Reported Potassium Chloride 10 Meq Tablet.er 10 Meq PO QODAY 11/24/15 Reported Albuterol Sulfate Neb Soln (Albuterol Sulfate) 0.63 Mg/3 Ml Vial.neb 1 Vial NEB PRN TID PRN 09/25/15 Reported Pepcid (Famotidine) 20 Mg Tablet 10 Mg PO HS 07/29/15 Reported Duoneb 0.5-3(2.5) Mg/3 Ml (Albuterol/Ipratropium) 3 Ml Ampul.neb 3 Ml IH QID 03/24/15 Reported Omeprazole 20 Mg Capsule.dr 1 Cap PO DAILY 02/27/14 Reported Impression . 1. Acute on chronic respiratory failure, multifactorial in etiology including acute exacerbation of chronic obstructive pulmonary disease, acute bronchitis 3. Acute exacerbation of chronic obstructive pulmonary disease. 4. Acute bronchitis. 5. Obstructive sleep apnea-hypopnea syndrome, CPAP intolerance. 6. Gastroesophageal reflux disease. 7. Atrial fibrillation. 8. History of deep venous thrombosis. 9. Hyperlipidemia. 10. Tobacco habituation. 11. allergic rhinitis 12. c diff colitis Plan . 1. I had a long discussion with her regarding smoking cessation. I have advised her to stop smoking forever. 2. Titrate FiO2 to keep O2 saturation 90%. 3. Bronchodilator. 4. inhaled corticosteroid. 5. change to Solu-Medrol 40 mg q 12 hrs. 6. Continue rocephin, flagyl started 7. Protonix for stress ulcer prophylaxis. 8. She is on Eliquis, monitor for bleeding. 9. I had a long discussion with her regarding obstructive sleep apnea-hypopnea syndrome and the importance of treatment, she understands, but she is not able tolerate CPAP or BiPAP. 10. JAZMINE Das MD December 05, 2016 13:31
[2016-12-05 15:00] VITALS: BP 125/76
[2016-12-05 19:55] VITALS: BP 134/74
[2016-12-05] MEDS: ZOLPIDEM 5 MG TABLET. PO PRN (21:11)
[2016-12-05] MEDS: MONTELUKAST SODIUM 10 MG TABLET. PO SCH (21:11)
[2016-12-05 23:35] VITALS: BP 129/76
[2016-12-06] MEDS: ACETAMINOPHEN 325 MG TABLET. PO PRN ×2 (01:54→01:55)
[2016-12-06 02:46] VITALS: BP 139/72
[2016-12-06 06:30] LABS: HEMATOCRIT 36.8 % (36.0-47.0); RED BLOOD COUNT 4.29 x10^6/uL (3.50-5.40); RED CELL DISTRIBUTION WIDTH 26.4 % (11.5-14.5); WHITE BLOOD COUNT 11.1 x10^3/uL (4.0-11.0)
[2016-12-06] MEDS: PANTOPRAZOLE 40 MG TABLET.DR. PO SCH (06:30)
[2016-12-06] MEDS: metroNIDAZOLE 500 MG TABLET PO SCH (06:30)
[2016-12-06] MEDS: IPRATRPIUM/ALBUTEROL 0.5/2.5MG 3 ML NEBU. NEB SCH ×2 (06:43→10:53)
[2016-12-06] MEDS: BUDESONIDE 0.5 MG/2 ML NEBU. NEB SCH (06:43)
[2016-12-06 06:44] LABS: CALCIUM 8.5 mg/dL (8.5-10.1); CREATININE 0.8 mg/dL (0.6-1.0); GFR 69.7; POTASSIUM 4.3 mmol/L (3.5-5.1)
[2016-12-06 07:00] VITALS: BP 145/78
[2016-12-06] MEDS: INSULIN ASPART 300 UNITS/3 ML INSULN.PEN SQ SCH (08:00)
[2016-12-06] MEDS ORDERED: predniSONE 20 MG TABLET PO SCH (09:00)
--- NOTE | 2016-12-06 09:41 | PDOC ---
PULMONARY PROGRESS NOTES Subjective groggy today Vitals Vital Signs Date Time Temp Pulse Resp B/P (MAP) Pulse Ox O2 Delivery O2 Flow Rate FiO2 12/06/16 07:00 98.0 79 16 145/78 (100) 96 Nasal Cannula 3.0 98.0 General: No acute distress HEENT: Other (nc at perrl, nose inflamed mucosa) Lungs: Other (deminished) Cardiovascular: S1, S2 Abdomen: Soft, Non-tender Neuro Exam: Alert Extremities: No Edema, Other Skin: Warm Labs Laboratory Tests Test 12/04/16 11:31 12/04/16 16:35 12/04/16 20:51 12/05/16 07:32 Glucose (Fingerstick) 297 mg/dL (70-99) 171 mg/dL (70-99) 223 mg/dL (70-99) 144 mg/dL (70-99) Test 12/05/16 10:38 12/05/16 16:56 12/05/16 21:15 12/06/16 05:45 Glucose (Fingerstick) 177 mg/dL (70-99) 198 mg/dL (70-99) 194 mg/dL (70-99) White Blood Count 11.1 x10^3/uL (4.0-11.0) Red Blood Count 4.29 x10^6/uL (3.50-5.40) Hemoglobin 12.0 g/dL (12.0-15.5) Hematocrit 36.8 % (36.0-47.0) Mean Corpuscular Volume 86 fL (79-100) Mean Corpuscular Hemoglobin 28 pg (25-35) Mean Corpuscular Hemoglobin Concent 33 g/dL (31-37) Red Cell Distribution Width 26.4 % (11.5-14.5) Platelet Count 190 x10^3/uL (140-400) Sodium Level 143 mmol/L (136-145) Potassium Level 4.3 mmol/L (3.5-5.1) Chloride Level 106 mmol/L (98-107) Carbon Dioxide Level 33 mmol/L (21-32) Anion Gap 4 (6-14) Blood Urea Nitrogen 27 mg/dL (7-20) Creatinine 0.8 mg/dL (0.6-1.0) Estimated GFR (Cockcroft-Gault) 69.7 Glucose Level 112 mg/dL (70-99) Calcium Level 8.5 mg/dL (8.5-10.1) Test 12/06/16 08:07 Glucose (Fingerstick) 88 mg/dL (70-99) Laboratory Tests Test 12/05/16 10:38 12/05/16 16:56 12/05/16 21:15 12/06/16 05:45 Glucose (Fingerstick) 177 mg/dL (70-99) 198 mg/dL (70-99) 194 mg/dL (70-99) White Blood Count 11.1 x10^3/uL (4.0-11.0) Red Blood Count 4.29 x10^6/uL (3.50-5.40) Hemoglobin 12.0 g/dL (12.0-15.5) Hematocrit 36.8 % (36.0-47.0) Mean Corpuscular Volume 86 fL (79-100) Mean Corpuscular Hemoglobin 28 pg (25-35) Mean Corpuscular Hemoglobin Concent 33 g/dL (31-37) Red Cell Distribution Width 26.4 % (11.5-14.5) Platelet Count 190 x10^3/uL (140-400) Sodium Level 143 mmol/L (136-145) Potassium Level 4.3 mmol/L (3.5-5.1) Chloride Level 106 mmol/L (98-107) Carbon Dioxide Level 33 mmol/L (21-32) Anion Gap 4 (6-14) Blood Urea Nitrogen 27 mg/dL (7-20) Creatinine 0.8 mg/dL (0.6-1.0) Estimated GFR (Cockcroft-Gault) 69.7 Glucose Level 112 mg/dL (70-99) Calcium Level 8.5 mg/dL (8.5-10.1) Test 12/06/16 08:07 Glucose (Fingerstick) 88 mg/dL (70-99) Medications Active Scripts Medications Dose Route/Sig Max Daily Dose Days Date Category Gabapentin 300 Mg Capsule 300 Mg PO TID 10/16/16 Rx Feosol (Ferrous Sulfate) 325 Mg Tablet 325 Mg PO BID 10/16/16 Rx Senna-Time S Tablet (Sennosides/Docusate Sodium) 1 Each Tablet 1 Tab PO PRN BID PRN 10/16/16 Rx Prednisone 20 Mg Tablet 40 Mg PO DAILY 10/16/16 Rx Colace (Docusate Sodium) 100 Mg Capsule 100 Mg PO PRN BID PRN 10/16/16 Rx Vitamin B-12 (Cyanocobalamin (Vitamin B-12)) 1,000 Mcg Tablet 1,000 Mcg PO DAILY 10/16/16 Rx Gabapentin 300 Mg Capsule 300 Mg PO BID 07/06/16 Reported Voltaren (Diclofenac Sodium) 100 Gm Gel..gram. 1 Gm TP QID PRN 06/20/16 Reported Stool Softener (Docusate Sodium) 100 Mg Tablet 100 Mg PO DAILY 06/20/16 Reported Benzonatate 100 Mg Capsule 100 Mg PO DAILY PRN 06/20/16 Reported Citracal + D Er Tablet (Calcium Carb & Cit/Vitamin D3) 1 Each Tablet.er 1 Each PO DAILY 06/20/16 Reported Hydrochlorothiazide Capsule (Hydrochlorothiazide) 12.5 Mg Capsule 1 Cap PO DAILY PRN 06/20/16 Reported Mucinex (Guaifenesin) 600 Mg Tablet.er 600 Mg PO BID 7 04/22/16 Rx Midodrine Hcl 5 Mg Tablet 5 Mg PO TID 11/24/15 Reported Eliquis (Apixaban) 5 Mg Tablet 10 Mg PO DAILY 11/24/15 Reported Potassium Chloride 10 Meq Tablet.er 10 Meq PO QODAY 11/24/15 Reported Albuterol Sulfate Neb Soln (Albuterol Sulfate) 0.63 Mg/3 Ml Vial.neb 1 Vial NEB PRN TID PRN 09/25/15 Reported Pepcid (Famotidine) 20 Mg Tablet 10 Mg PO HS 07/29/15 Reported Duoneb 0.5-3(2.5) Mg/3 Ml (Albuterol/Ipratropium) 3 Ml Ampul.neb 3 Ml IH QID 03/24/15 Reported Omeprazole 20 Mg Capsule. 1 Cap PO DAILY 02/27/14 Reported Impression . 1. Acute on chronic respiratory failure, multifactorial in etiology including acute exacerbation of chronic obstructive pulmonary disease, acute bronchitis 3. Acute exacerbation of chronic obstructive pulmonary disease. 4. Acute bronchitis. 5. Obstructive sleep apnea-hypopnea syndrome, CPAP intolerance. 6. Gastroesophageal reflux disease. 7. Atrial fibrillation. 8. History of deep venous thrombosis. 9. Hyperlipidemia. 10. Tobacco habituation. 11. allergic rhinitis 12. c diff colitis Plan . 1. Avoid sedatives 2. Titrate FiO2 to keep O2 saturation 90%. 3. Bronchodilator. 4. inhaled corticosteroid. 5. change to Solu-Medrol 40 mg q 12 hrs. 6. Continue Abx 7. Protonix for stress ulcer prophylaxis. 8. She is on Eliquis, monitor for bleeding. 9. I had a long discussion with her regarding obstructive sleep apnea-hypopnea syndrome and the importance of treatment, she understands, but she is not able tolerate CPAP or BiPAP. JAZMINE IVERSON MD December 06, 2016 09:41
[2016-12-06] MEDS: NYSTATIN 100,000 UNITS/ML 5 ML ORAL.SUSP. SWSW SCH (09:45)
[2016-12-06] MEDS: BENZONATATE 100 MG CAPSULE. PO SCH (09:46)
[2016-12-06] MEDS: APIXABAN 5 MG TABLET. PO SCH (09:46)
[2016-12-06] MEDS: GABAPENTIN 300 MG CAPSULE. PO SCH (09:46)
[2016-12-06] MEDS: DOCUSATE SODIUM 100 MG CAPSULE. PO SCH (09:46)
[2016-12-06] MEDS ORDERED: METR500T PO (10:15)
[2016-12-06] MEDS ORDERED: PRED20TA PO (10:15)
[2016-12-06] MEDS ORDERED: MONT10TA9 PO (10:15)
--- NOTE | 2016-12-06 10:16 | PDOC ---
SUBJECTIVE Subjective slepy had pain LE at nnight did not sleep good, feels better now OBJECTIVE Vital Signs Vital Signs Date Time Temp Pulse Resp B/P (MAP) Pulse Ox O2 Delivery O2 Flow Rate FiO2 12/06/16 08:00 Nasal Cannula 3.0 12/06/16 07:00 98.0 79 16 145/78 (100) 96 Nasal Cannula 3.0 98.0 12/06/16 06:43 96 Nasal Cannula 3.0 12/06/16 02:46 98.0 72 20 139/72 (94) 93 Nasal Cannula 3.0 98.0 12/05/16 23:35 97.6 70 20 129/76 (93) 94 Nasal Cannula 3.0 97.6 12/05/16 20:00 Nasal Cannula 3.0 12/05/16 19:55 97.3 84 22 134/74 (94) 93 Nasal Cannula 3.0 97.3 12/05/16 19:40 Nasal Cannula 3.0 12/05/16 19:39 Nasal Cannula 3.0 12/05/16 15:33 Nasal Cannula 3.0 12/05/16 15:00 98.1 80 20 125/76 (92) 95 Nasal Cannula 3.0 98.1 12/05/16 11:47 96 Nasal Cannula 3.0 12/05/16 11:00 97.7 79 18 119/56 (77) 90 Nasal Cannula 3.0 97.7 I & O Intake and Output 12/06/16 07:00 Intake Total 640 ml Output Total 201 ml Balance 439 ml Intake Oral 640 ml Output Urine Total 200 ml Stool Total 1 ml # Voids 6 PHYSICAL EXAM Physical Exam lungs less wheezing better air movement heart RRR abd soft much less bloated ASSESSMENT/PLAN Assessment/Plan plan discharge on taper steroid and continue flafyl for 10 day Problems: COMMENT Lab Laboratory Tests Test 12/05/16 10:38 12/05/16 16:56 12/05/16 21:15 12/06/16 05:45 Glucose (Fingerstick) 177 mg/dL (70-99) 198 mg/dL (70-99) 194 mg/dL (70-99) White Blood Count 11.1 x10^3/uL (4.0-11.0) Red Blood Count 4.29 x10^6/uL (3.50-5.40) Hemoglobin 12.0 g/dL (12.0-15.5) Hematocrit 36.8 % (36.0-47.0) Mean Corpuscular Volume 86 fL (79-100) Mean Corpuscular Hemoglobin 28 pg (25-35) Mean Corpuscular Hemoglobin Concent 33 g/dL (31-37) Red Cell Distribution Width 26.4 % (11.5-14.5) Platelet Count 190 x10^3/uL (140-400) Sodium Level 143 mmol/L (136-145) Potassium Level 4.3 mmol/L (3.5-5.1) Chloride Level 106 mmol/L (98-107) Carbon Dioxide Level 33 mmol/L (21-32) Anion Gap 4 (6-14) Blood Urea Nitrogen 27 mg/dL (7-20) Creatinine 0.8 mg/dL (0.6-1.0) Estimated GFR (Cockcroft-Gault) 69.7 Glucose Level 112 mg/dL (70-99) Calcium Level 8.5 mg/dL (8.5-10.1) Test 12/06/16 08:07 Glucose (Fingerstick) 88 mg/dL (70-99) JAS CARREON MD December 06, 2016 10:16
--- NOTE | 2016-12-06 10:16 | PDOC3 ---
Discharge Summary* Date of Admission: December 01, 2016 Date of Discharge: December 06, 2016 Final Diagnosis 1. Acute on chronic respiratory failure due to chronic obstructive pulmonary disease exacerbation. no PE continue Eliquis 2- c. diff colitis continue flagyl 2. Fatigue and dizziness. improved 3. Anemia improved 4. Atrial fibrillation on chronic anticoagulation 5. History of deep venous thrombosis. 6. Hyperlipidemia. 7. History of cardiac pacemaker in situ. 8. 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 9. Obesity. 10. hyperglycemia due to steroid CONSULTS pulmonary, GI Procedures CXR Brief Hospital Course Ms. Segura is a 76 old [sex] who presented with [ ] Disposition/Orders: D/C to Home, D/C to Home w/ HH CONDITION AT DISCHARGE: Improved, Stable Diet: Consistent Carbohydrate Scheduled Apixaban (Eliquis), 10 MG PO DAILY, (Reported) Calcium Carb & Cit/Vitamin D3 (Citracal + D Er Tablet), 1 EACH PO DAILY, ( Reported) Cyanocobalamin (Vitamin B-12) (Vitamin B-12), 1,000 MCG PO DAILY Famotidine (Pepcid), 10 MG PO HS, (Reported) Ferrous Sulfate (Feosol), 325 MG PO BID Gabapentin (Gabapentin), 300 MG PO BID, (Reported) Gabapentin (Gabapentin), 300 MG PO TID Guaifenesin (Mucinex), 600 MG PO BID Ipratropium/Albuterol Sulfate (Duoneb 0.5-3(2.5) Mg/3 Ml), 3 ML IH QID, ( Reported) Metronidazole (Flagyl), 500 MG PO Q8HRS Midodrine Hcl (Midodrine Hcl), 5 MG PO TID, (Reported) Montelukast Sodium (Montelukast Sodium Tablet), 10 MG PO QHS Omeprazole (Omeprazole), 1 CAP PO DAILY, (Reported) Prednisone (Prednisone), 10 MG PO DAILY Scheduled PRN Albuterol Sulfate (Albuterol Sulfate Neb Soln), 1 VIAL NEB PRN TID PRN for SHORTNESS OF BREATH, (Reported) Benzonatate (Benzonatate), 100 MG PO DAILY PRN for COUGH, (Reported) Diclofenac Sodium (Voltaren), 1 GM TP QID PRN for PAIN, (Reported) Hydrochlorothiazide (Hydrochlorothiazide Capsule ), 1 CAP PO DAILY PRN for swelling, (Reported) Discontinued Medications Aspirin (Aspirin), 1 TAB PO DAILY, (Reported) Docusate Sodium (Stool Softener), 100 MG PO DAILY, (Reported) Docusate Sodium (Colace), 100 MG PO PRN BID PRN for CONSTIPATION Hydrocodone Bit/Acetaminophen (Hydrocodone-Apap 7.5-325 ), 1 TAB PO PRN Q6HRS PRN for PAIN, (Reported) Potassium Chloride (Potassium Chloride), 10 MEQ PO QODAY, (Reported) Sennosides/Docusate Sodium (Senna-Time S Tablet), 1 TAB PO PRN BID PRN for CONSTIPATION FOLLOW UP APPOINTMENT: office 1 week Time Spent Total time spent with patient [] minutes for coordination of care, counseling, and education. JAS CARREON MD December 06, 2016 10:16
--- NOTE | 2016-12-06 10:43 | PDOC ---
G I PROGRESS NOTE Subjective NO GI complaints. To go home today. Physical Exam Lungs clear, but moves little air bilaterally. RRR Abdomen soft, not tender nor distended. Review of Relevant I have reviewed the following items margaret (where applicable) has been applied. Labs Laboratory Tests Test 12/04/16 11:31 12/04/16 16:35 12/04/16 20:51 12/05/16 07:32 Glucose (Fingerstick) 297 mg/dL (70-99) 171 mg/dL (70-99) 223 mg/dL (70-99) 144 mg/dL (70-99) Test 12/05/16 10:38 12/05/16 16:56 12/05/16 21:15 12/06/16 05:45 Glucose (Fingerstick) 177 mg/dL (70-99) 198 mg/dL (70-99) 194 mg/dL (70-99) White Blood Count 11.1 x10^3/uL (4.0-11.0) Red Blood Count 4.29 x10^6/uL (3.50-5.40) Hemoglobin 12.0 g/dL (12.0-15.5) Hematocrit 36.8 % (36.0-47.0) Mean Corpuscular Volume 86 fL (79-100) Mean Corpuscular Hemoglobin 28 pg (25-35) Mean Corpuscular Hemoglobin Concent 33 g/dL (31-37) Red Cell Distribution Width 26.4 % (11.5-14.5) Platelet Count 190 x10^3/uL (140-400) Sodium Level 143 mmol/L (136-145) Potassium Level 4.3 mmol/L (3.5-5.1) Chloride Level 106 mmol/L (98-107) Carbon Dioxide Level 33 mmol/L (21-32) Anion Gap 4 (6-14) Blood Urea Nitrogen 27 mg/dL (7-20) Creatinine 0.8 mg/dL (0.6-1.0) Estimated GFR (Cockcroft-Gault) 69.7 Glucose Level 112 mg/dL (70-99) Calcium Level 8.5 mg/dL (8.5-10.1) Test 12/06/16 08:07 Glucose (Fingerstick) 88 mg/dL (70-99) Laboratory Tests Test 12/05/16 16:56 12/05/16 21:15 12/06/16 05:45 12/06/16 08:07 Glucose (Fingerstick) 198 mg/dL (70-99) 194 mg/dL (70-99) 88 mg/dL (70-99) White Blood Count 11.1 x10^3/uL (4.0-11.0) Red Blood Count 4.29 x10^6/uL (3.50-5.40) Hemoglobin 12.0 g/dL (12.0-15.5) Hematocrit 36.8 % (36.0-47.0) Mean Corpuscular Volume 86 fL (79-100) Mean Corpuscular Hemoglobin 28 pg (25-35) Mean Corpuscular Hemoglobin Concent 33 g/dL (31-37) Red Cell Distribution Width 26.4 % (11.5-14.5) Platelet Count 190 x10^3/uL (140-400) Sodium Level 143 mmol/L (136-145) Potassium Level 4.3 mmol/L (3.5-5.1) Chloride Level 106 mmol/L (98-107) Carbon Dioxide Level 33 mmol/L (21-32) Anion Gap 4 (6-14) Blood Urea Nitrogen 27 mg/dL (7-20) Creatinine 0.8 mg/dL (0.6-1.0) Estimated GFR (Cockcroft-Gault) 69.7 Glucose Level 112 mg/dL (70-99) Calcium Level 8.5 mg/dL (8.5-10.1) Medications Current Medications Furosemide (Lasix) 20 mg 1X ONCE IVP Last administered on 12/01/16 18:19; Start 12/01/16 at 17:00; Stop 12/01/16 at 17:32; Status DC Acetaminophen (Tylenol) 325 mg PRN Q4HRS PRN PO MILD PAIN / TEMP Last administered on 12/06/16 01:55; Start 12/01/16 at 17:00 Albuterol/ Ipratropium (Duoneb) 3 ml RTQID NEB Last administered on 12/06/16 06:43; Start 12/01/16 at 20:00 Alprazolam (Xanax) 0.5 mg PRN Q8HRS PRN PO anxiety or insomnia Last administered on 12/06/16 01:54; Start 12/01/16 at 17:00 Pantoprazole Sodium (Protonix) 40 mg DAILYAC PO Last administered on 12/06/16 06:30; Start 12/02/16 at 07:30 Docusate Sodium (Colace) 100 mg DAILY PO Last administered on 12/06/16 09:46; Start 12/02/16 at 09:00 Apixaban (Eliquis) 5 mg BID PO Last administered on 12/06/16 09:46; Start 06/09 at 21:00 Benzonatate (Tessalon Perle) 100 mg [id number] PO Last administered on 12/06/16 09 :46; Start 12/01/16 at 21:00 Gabapentin (Neurontin) 300 mg TID PO Last administered on 12/06/16 09:46; Start 12/01/16 at 21:00 Methylprednisolone Sodium Succinate (Solu-Medrol 125mg Vial) 80 mg Q8HRS IV Last administered on 12/03/16 06:20; Start 12/01/16 at 22:00; Stop 12/03/16 at 10:02; Status DC Levofloxacin (Levaquin) 500 mg DAILY06 PO Last administered on 12/03/16 06:20 ; Start 12/01/16 at 17:00; Stop 12/03/16 at 14:26; Status DC Info (Anti-Coagulation Monitoring By Pharmacy) 1 each PRN DAILY PRN MC SEE COMMENTS Last administered on 12/02/16 12:53; Start 12/01/16 at 17:30 Albuterol Sulfate (Ventolin Neb Soln) 3 mg PRN Q2HRS PRN NEB soa Last administered on 12/04/16 03:38; Start 12/01/16 at 18:30 Iohexol (Omnipaque 300 Mg/ml) 60 ml 1X ONCE IV Last administered on 12/01/16 18:30; Start 12/01/16 at 18:30; Stop 12/01/16 at 18:33; Status DC Info (Do NOT chart on this entry -- for MONITORING) 1 each PRN DAILY PRN MC SEE COMMENTS; Start 12/01/16 at 18:45; Stop 12/03/16 at 18:44; Status DC Potassium Chloride (Klor-Con) 40 meq 1X ONCE PO Last administered on 13:10; Start 12/02/16 at 09:15; Stop 12/02/16 at 09:16; Status DC Nystatin 5 ml [id number] Last administered on 12/06/16 09:45; Start at 13:00 Zolpidem Tartrate (Ambien) 5 mg PRN QHS PRN PO INSOMNIA Last administered on 21:11; Start 12/02/16 at 09:45 Insulin Aspart (NovoLOG) 0-5 UNITS TIDWMEALS SQ Last administered on 12/05/16 18:54; Start 12/02/16 at 12:00 Dextrose (Dextrose 50%-Water Syringe) 12.5 gm PRN Q15MIN PRN IV SEE COMMENTS; Start 12/02/16 at 10:00 Budesonide (Pulmicort) 0.5 mg RTBID NEB Last administered on 12/06/16 06:43; Start 12/02/16 at 13:00 Methylprednisolone Sodium Succinate (SOLU-Medrol 40MG VIAL) 40 mg Q8HRS IV Last administered on 12/04/16 06:24; Start 12/03/16 at 14:00; Stop 12/04/16 at 10:16; Status DC Montelukast Sodium (Singulair) 10 mg QHS PO Last administered on 12/05/16 21: 11; Start 12/03/16 at 21:00 Metronidazole (Flagyl) 500 mg Q8HRS PO Last administered on 12/06/16 06:30; Start 12/03/16 at 14:00 Ceftriaxone Sodium 1 gm/ Sodium Chloride 50 ml @ 100 mls/hr Q24H IV Last administered on 12/04/16 14:41; Start 12/03/16 at 15:00; Stop 12/05/16 at 11:59 ; Status DC Methylprednisolone Sodium Succinate (SOLU-Medrol 40MG VIAL) 40 mg Q12HR IV Last administered on 12/05/16 09:18; Start 12/04/16 at 21:00; Stop 12/05/16 at 11:59; Status DC Ondansetron HCl (Zofran) 4 mg PRN Q4HRS PRN IV NAUSEA/VOMITING Last administered on 12/04/16 21:28; Start 12/04/16 at 21:15 Prednisone (Prednisone) 40 mg DAILY PO Last administered on 12/06/16 09:50; Start 12/06/16 at 09:00 Active Scripts Active Gabapentin 300 Mg Capsule 300 Mg PO TID Feosol (Ferrous Sulfate) 325 Mg Tablet 325 Mg PO BID Senna-Time S Tablet (Sennosides/Docusate Sodium) 1 Each Tablet 1 Tab PO PRN BID PRN Prednisone 20 Mg Tablet 40 Mg PO DAILY Colace (Docusate Sodium) 100 Mg Capsule 100 Mg PO PRN BID PRN Vitamin B-12 (Cyanocobalamin (Vitamin B-12)) 1,000 Mcg Tablet 1,000 Mcg PO DAILY Mucinex (Guaifenesin) 600 Mg Tablet.er 600 Mg PO BID 7 Days Reported Gabapentin 300 Mg Capsule 300 Mg PO BID Voltaren (Diclofenac Sodium) 100 Gm Gel..gram. 1 Gm TP QID PRN Stool Softener (Docusate Sodium) 100 Mg Tablet 100 Mg PO DAILY Benzonatate 100 Mg Capsule 100 Mg PO DAILY PRN Citracal + D Er Tablet (Calcium Carb & Cit/Vitamin D3) 1 Each Tablet.er 1 Each PO DAILY Hydrochlorothiazide Capsule (Hydrochlorothiazide) 12.5 Mg Capsule 1 Cap PO DAILY PRN Midodrine Hcl 5 Mg Tablet 5 Mg PO TID Eliquis (Apixaban) 5 Mg Tablet 10 Mg PO DAILY Potassium Chloride 10 Meq Tablet.er 10 Meq PO QODAY Albuterol Sulfate Neb Soln (Albuterol Sulfate) 0.63 Mg/3 Ml Vial.neb 1 Vial NEB PRN TID PRN Pepcid (Famotidine) 20 Mg Tablet 10 Mg PO HS Duoneb 0.5-3(2.5) Mg/3 Ml (Albuterol/Ipratropium) 3 Ml Ampul.neb 3 Ml IH QID Omeprazole 20 Mg Capsule. 1 Cap PO DAILY Vitals/I & O Vital Sign - Last 24 Hours 12/05/16 12/05/16 12/05/16 12/05/16 11:00 11:47 15:00 15:33 Temp 97.7 98.1 97.7 98.1 Pulse 79 80 Resp 18 20 B/P (MAP) 119/56 (77) 125/76 (92) Pulse Ox 90 96 95 O2 Delivery Nasal Cannula Nasal Cannula Nasal Cannula Nasal Cannula O2 Flow Rate 3.0 3.0 3.0 3.0 12/05/16 12/05/16 12/05/16 12/05/16 19:39 19:40 19:55 20:00 Temp 97.3 97.3 Pulse 84 Resp 22 B/P (MAP) 134/74 (94) Pulse Ox 93 O2 Delivery Nasal Cannula Nasal Cannula Nasal Cannula Nasal Cannula O2 Flow Rate 3.0 3.0 3.0 3.0 12/05/16 12/06/16 12/06/16 12/06/16 23:35 02:46 06:43 07:00 Temp 97.6 98.0 98.0 97.6 98.0 98.0 Pulse 70 72 79 Resp 20 20 16 B/P (MAP) 129/76 (93) 139/72 (94) 145/78 (100) Pulse Ox 94 93 96 96 O2 Delivery Nasal Cannula Nasal Cannula Nasal Cannula Nasal Cannula O2 Flow Rate 3.0 3.0 3.0 3.0 12/06/16 08:00 O2 Delivery Nasal Cannula O2 Flow Rate 3.0 Intake and Output 12/05/16 12/05/16 12/06/16 15:00 23:00 07:00 Intake Total 340 ml 300 ml Output Total 1 ml 200 ml Balance 339 ml 100 ml Assessment SCAR, cause unclear, better on po iron. Plan of Care: Continue current Tx, Mgmt Plan of Care Note Home OK with me. Not averse to endoscopic w/u, but pulmonary status precludes currently and c.diff. ALETHA MAHONEY MD December 06, 2016 10:43
[2016-12-06 11:00] VITALS: BP 130/79
== END 2016-12-06 12:46 | disposition home or self-care (01) | DRG 371 ==
LOC: 5 NORTH 13:46
PROVIDERS: ADMIT Internal Medicine; ATTEND Internal Medicine
DX: A04.7 Enterocolitis due to Clostridium difficile (principal); J96.20 Acute and chronic respiratory failure, unspecified whether with hypoxia or hypercapnia; J44.0 Chronic obstructive pulmonary disease with (acute) lower respiratory infection; J98.11 Atelectasis; J44.1 Chronic obstructive pulmonary disease with (acute) exacerbation; J20.9 Acute bronchitis, unspecified; D64.9 Anemia, unspecified; E66.9 Obesity, unspecified; E78.5 Hyperlipidemia, unspecified; F17.210 Nicotine dependence, cigarettes, uncomplicated; F32.9 Major depressive disorder, single episode, unspecified; F41.9 Anxiety disorder, unspecified; G47.33 Obstructive sleep apnea (adult) (pediatric); I10 Essential (primary) hypertension; I48.0 Paroxysmal atrial fibrillation; K21.9 Gastro-esophageal reflux disease without esophagitis; R32 Unspecified urinary incontinence; T38.0X5A Adverse effect of glucocorticoids and synthetic analogues, initial encounter; M19.90 Unspecified osteoarthritis, unspecified site; G89.29 Other chronic pain; Z96.641 Presence of right artificial hip joint; Z79.01 Long term (current) use of anticoagulants; Z82.49 Family history of ischemic heart disease and other diseases of the circulatory system; Z86.718 Personal history of other venous thrombosis and embolism; Z95.0 Presence of cardiac pacemaker; Z99.81 Dependence on supplemental oxygen; Z90.710 Acquired absence of both cervix and uterus; Z90.722 Acquired absence of ovaries, bilateral; Z90.79 Acquired absence of other genital organ(s); Z88.2 Allergy status to sulfonamides; Z68.39 Body mass index [BMI] 39.0-39.9, adult; R73.9 Hyperglycemia, unspecified
CPT/HCPCS: 36415; 71020; 71275; 80048; 80053; 82947; 83036; 83880; 85007; 85027; 87324; 93005; 94250; 94640; 94760; J0696; J1815; J2405; J2920; J2930; J7512; J7620; Q9967; 97110; 97116; 97535

== ENCOUNTER 2016-12-28 11:21 | Inpatient (IN) | payer BC ==
[~2016-12-28] VITALS: Ht 166.4 cm; Wt 101.8 kg
[~2016-12-28 11:21] MED LIST changes: +ASPI-630 PO; -ASPI325T4 PO; +ASPI325T8 PO; -ASPI81TA2 PO; +BENZ100C15 PO; -BENZ100C2 PO; +DICL100G18 TP; -DICL100G7 TP; +DOCU-109 PO; -DOCU-27 PO; -GUAI600T38 PO; +GUAI600T47 PO; +METR500T PO; +MONT10TA9 PO; -OMEP20TA PO; +OMEP20TA8 PO
[2016-12-28 12:00] VITALS: BP 122/66
[2016-12-28] MEDS: IPRATRPIUM/ALBUTEROL 0.5/2.5MG 3 ML NEBU. NEB SCH ×4 (13:56→23:47)
[2016-12-28 15:00] VITALS: BP 142/97
[2016-12-28] MEDS: hydroCHLOROthiazide 12.5 MG CAPSULE PO SCH (15:00)
[2016-12-28 15:04] LABS: BASO % 0 % (0-3); EOS % 0 % (0-3); HEMATOCRIT 41.2 % (36.0-47.0); HEMOGLOBIN 13.6 g/dL (12.0-15.5); LYMPH # 0.8 x10^3/uL (1.0-4.8); LYMPH % 11 % (24-48); MEAN CORPUSCULAR HEMOGLOBIN 30 pg (25-35); MEAN CORPUSCULAR HGB CONC 33 g/dL (31-37); MEAN CORPUSCULAR VOLUME 91 fL (79-100); MONO % 3 % (0-9); NEUT % 86 % (31-73); PLATELET COUNT 173 x10^3/uL (140-400); RED BLOOD COUNT 4.53 x10^6/uL (3.50-5.40); WHITE BLOOD COUNT 7.4 x10^3/uL (4.0-11.0)
--- NOTE | 2016-12-28 15:04 | EKG ---
[facility] [address] [place] [address] Test Date: 2016-12-28 Test Time: 15:02:51 Pat Name: BERNA BRAVO Department: Room: [facility] Gender: F Store Clerk: IKE : 1940 Requested By: JAS CARREON Order Number: [id number] Reading MD: Tiara Billy Measurements Intervals [place] Rate: 83 P: 86 W[place]: 152 QRS: -67 QRSD: 132 T: 3 QT: 416 QTc: 489 Interpretive Statements SINUS RHYTHM LEFT ANTERIOR FASCICULAR BLOCK RIGHT BUNDLE BRANCH BLOCK BIFASCICULAR BLOCK RVH WITH REPOLARIZATION ABNORMALITY Electronically Signed On 12-31-2016 18:49:04 CDT by Tiara Billy
[2016-12-28 15:29] LABS: ANISOCYTOSIS MOD; PLT ESTIMATE ADEQUATE (ADEQUATE); POIKILOCYTOSIS SLIGHT
[2016-12-28 15:37] LABS: ALBUMIN 3.2 g/dL (3.4-5.0); ALBUMIN/GLOBULIN RATIO 1.1 (1.0-1.7); CALCIUM 9.2 mg/dL (8.5-10.1); CREATININE 0.9 mg/dL (0.6-1.0); GFR 60.9; POTASSIUM 4.2 mmol/L (3.5-5.1); TOTAL BILIRUBIN 0.5 mg/dL (0.2-1.0); TOTAL PROTEIN 6.1 g/dL (6.4-8.2)
[2016-12-28] MEDS: IPRATRPIUM/ALBUTEROL 0.5/2.5MG 3 ML NEBU. IH SCH ×3 (16:05→23:47)
--- NOTE | 2016-12-28 16:14 | RAD ---
Indication shortness of breath. PA and lateral views of the chest were obtained. Comparison is made to an examination 12/01/2016. Heart size is unchanged. Bipolar cardiac pacing device is noted. There is no gross congestive heart failure. Best demonstrated on the lateral view is some volume loss in the lower lobes which may reflect atelectasis or pneumonia. Significant pleural fluid in either lung is not seen. IMPRESSION: Mild volume loss at the lung bases compatible with atelectasis or pneumonia
[2016-12-28] MEDS: metroNIDAZOLE 500 MG TABLET PO SCH ×2 (16:56→21:06)
[2016-12-28] MEDS: DOXYCYCLINE HYCLATE 100 MG TABLET PO SCH ×2 (16:56→21:06)
[2016-12-28] MEDS: methylPREDNISolone SOD SUCC PF 125 MG/2 ML VIAL. IV SCH ×2 (16:56→21:06)
[2016-12-28] MEDS: hydroCHLOROthiazide 25 MG TABLET PO SCH (17:12)
[2016-12-28 19:00] VITALS: BP 135/64
[2016-12-28] MEDS: MONTELUKAST SODIUM 10 MG TABLET. PO SCH (21:05)
[2016-12-28] MEDS: FAMOTIDINE 20 MG TABLET. PO SCH (21:06)
[2016-12-28] MEDS: APIXABAN 5 MG TABLET. PO SCH (21:06)
[2016-12-28] MEDS: ZOLPIDEM 5 MG TABLET. PO PRN (21:06)
[2016-12-28] MEDS ORDERED: SENNOSIDES 8.6 MG TABLET PO PRN (22:00)
[2016-12-28] MEDS ORDERED: POLYETHYLENE GLYCOL 3350 17 GM PACKET. PO ONE (22:30)
[2016-12-28] MEDS ORDERED: GABAPENTIN 300 MG CAPSULE. PO ONE (22:30)
[2016-12-28] MEDS: HYDROcodone/APAP 7.5/325MG 1 TAB TABLET PO PRN (22:31)
[2016-12-28 23:00] VITALS: BP 96/66
[2016-12-29 03:12] VITALS: BP 144/65
[2016-12-29] MEDS: IPRATRPIUM/ALBUTEROL 0.5/2.5MG 3 ML NEBU. IH SCH ×3 (03:54→11:04)
[2016-12-29] MEDS: IPRATRPIUM/ALBUTEROL 0.5/2.5MG 3 ML NEBU. NEB SCH ×6 (03:55→23:16)
[2016-12-29] MEDS: metroNIDAZOLE 500 MG TABLET PO SCH ×3 (05:50→20:41)
[2016-12-29] MEDS: methylPREDNISolone SOD SUCC PF 125 MG/2 ML VIAL. IV SCH ×3 (05:51→20:39)
[2016-12-29 07:00] VITALS: BP 148/65
[2016-12-29] MEDS: APIXABAN 5 MG TABLET. PO SCH ×2 (08:45→20:36)
[2016-12-29] MEDS: GABAPENTIN 300 MG CAPSULE. PO SCH ×2 (08:46→20:34)
[2016-12-29] MEDS: DOXYCYCLINE HYCLATE 100 MG TABLET PO SCH ×2 (08:46→20:34)
[2016-12-29] MEDS: FAMOTIDINE 20 MG TABLET. PO SCH ×2 (08:47→20:36)
[2016-12-29] MEDS: BENZONATATE 100 MG CAPSULE. PO PRN (08:47)
[2016-12-29] MEDS: hydroCHLOROthiazide 12.5 MG CAPSULE PO SCH (08:47)
[2016-12-29] MEDS: hydroCHLOROthiazide 25 MG TABLET PO SCH (08:50)
[2016-12-29] MEDS ORDERED: GABAPENTIN 300 MG CAPSULE. PO PRN ×2 (09:45)
--- NOTE | 2016-12-29 09:59 | PDOC ---
OBJECTIVE Vital Signs Vital Signs Date Time Temp Pulse Resp B/P (MAP) Pulse Ox O2 Delivery O2 Flow Rate FiO2 12/29/16 07:18 98 Nasal Cannula 4.0 12/29/16 07:00 96.3 75 16 148/65 (92) 97 Nasal Cannula 4.0 96.3 12/29/16 03:54 Nasal Cannula 4.0 12/29/16 03:12 97.5 84 20 144/65 (91) 95 Nasal Cannula 97.5 12/28/16 23:46 Nasal Cannula 4.0 12/28/16 23:34 18 93 Nasal Cannula 4.0 12/28/16 23:00 98.0 79 20 96/66 (76) 93 Nasal Cannula 98.0 12/28/16 22:31 18 95 Nasal Cannula 4.0 12/28/16 20:00 Nasal Cannula 4.0 12/28/16 19:58 95 Nasal Cannula 4.0 12/28/16 19:00 97.9 92 20 135/64 (87) 95 Nasal Cannula 97.9 12/28/16 16:06 Nasal Cannula 4.0 12/28/16 15:00 95.9 85 18 142/97 (112) 95 Nasal Cannula 4.0 95.9 12/28/16 13:57 95 Nasal Cannula 4.0 12/28/16 13:00 Nasal Cannula 4.0 12/28/16 12:00 97.5 88 18 122/66 (84) 94 Room Air 97.5 I & O Intake and Output 12/29/16 07:00 Intake Total 0 ml Output Total 100 ml Balance -100 ml Intake Oral 0 ml Output Urine Total 100 ml # Voids 2 # Bowel Movements 1 ASSESSMENT/PLAN Assessment/Plan [id number] H&P dictated Problems: COMMENT Lab Laboratory Tests Test 12/28/16 14:50 12/28/16 20:45 12/29/16 03:40 White Blood Count 7.4 x10^3/uL (4.0-11.0) Red Blood Count 4.53 x10^6/uL (3.50-5.40) Hemoglobin 13.6 g/dL (12.0-15.5) Hematocrit 41.2 % (36.0-47.0) Mean Corpuscular Volume 91 fL (79-100) Mean Corpuscular Hemoglobin 30 pg (25-35) Mean Corpuscular Hemoglobin Concent 33 g/dL (31-37) Red Cell Distribution Width 22.0 % (11.5-14.5) Platelet Count 173 x10^3/uL (140-400) Neutrophils (%) (Auto) 86 % (31-73) Lymphocytes (%) (Auto) 11 % (24-48) Monocytes (%) (Auto) 3 % (0-9) Eosinophils (%) (Auto) 0 % (0-3) Basophils (%) (Auto) 0 % (0-3) Neutrophils # (Auto) 6.4 x10^3uL (1.8-7.7) Lymphocytes # (Auto) 0.8 x10^3/uL (1.0-4.8) Monocytes # (Auto) 0.2 x10^3/uL (0.0-1.1) Eosinophils # (Auto) 0.0 x10^3/uL (0.0-0.7) Basophils # (Auto) 0.0 x10^3/uL (0.0-0.2) Segmented Neutrophils % 85 % (35-66) Lymphocytes % 13 % (24-48) Atypical Lymphocytes % (Manual) 1 % (0-0) Monocytes % 1 % (0-10) Platelet Estimate Adequate (ADEQUATE) Poikilocytosis Slight Anisocytosis Mod Sodium Level 145 mmol/L (136-145) Potassium Level 4.2 mmol/L (3.5-5.1) Chloride Level 103 mmol/L (98-107) Carbon Dioxide Level 36 mmol/L (21-32) Anion Gap 6 (6-14) Blood Urea Nitrogen 18 mg/dL (7-20) Creatinine 0.9 mg/dL (0.6-1.0) Estimated GFR (Cockcroft-Gault) 60.9 BUN/Creatinine Ratio 20 (6-20) Glucose Level 170 mg/dL (70-99) Calcium Level 9.2 mg/dL (8.5-10.1) Total Bilirubin 0.5 mg/dL (0.2-1.0) Aspartate Amino Transf (AST/SGOT) 16 U/L (15-37) Alanine Aminotransferase (ALT/SGPT) 25 U/L (14-59) Alkaline Phosphatase 69 U/L (46-116) Troponin I Quantitative < 0.017 ng/mL (0.000-0.055) < 0.017 ng/mL (0.000-0.055) < 0.017 ng/mL (0.000-0.055) KQ-Zya-P-Type Natriuretic Peptide 133 pg/mL (0-449) Total Protein 6.1 g/dL (6.4-8.2) Albumin 3.2 g/dL (3.4-5.0) Albumin/Globulin Ratio 1.1 (1.0-1.7) JAS CARREON MD Dec 29, 2016 09:59
[2016-12-29] MEDS: NICOTINE 21MG PATCH. TD SCH (10:35)
[2016-12-29 11:00] VITALS: BP 138/74
--- NOTE | 2016-12-29 11:27 | PREOP HP ---
DATE OF SERVICE: [facility] NUMBER: [id number]. HISTORY OF PRESENT ILLNESS: The patient is a 76-year-old lady who is admitted to room 504. She was seen in the office due to increasing shortness of breath and not being able to breathe, very short of breath and abdominal pain and discomfort. She also noticed that her stool smells being very bad. She is very bloated, having abdominal pain, discomfort and not able to breathe and wheezing with very poor air movement. She has COPD and is usually on 3 liters of oxygen at home. She also has been coughing with yellowish greenish sputum, more than usual. She has been using her breathing treatment by nebulizer at home, but without much benefit. She denied having fever or chills but stated that she is very weak. She also complained of increasing pain in her lower extremities. PAST MEDICAL HISTORY: Significant for COPD, previous history of valvular heart disease; pacemaker; atrial fibrillation, she is on chronic anticoagulation; hypertension; previous history of DVT; gastroesophageal reflux disease; hiatal hernia; ventral hernia repair; and obesity. She does have previous history of C. diff colitis. Previous history of endometriosis, hysterectomy, oophorectomy, salpingectomy, inguinal hernia repair, urinary incontinence, osteoarthritis, history of right hip replacement, elbow fracture, back pain, depression and anxiety. She also does have a history of cataract extraction bilaterally. 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 SOCIAL HISTORY: She is a smoker. She continues to smoke and has smoked for 56 years. She does not drink alcohol or use other drugs. FAMILY HISTORY: Positive for hypertension and cardiac disease. REVIEW OF SYSTEMS: CONSTITUTIONAL: She denies fever or chills. She does have fatigue, she does not feel good in general. RESPIRATORY: She does have difficulty breathing and not able to breathe. Very poor air movement and shortness of breath. She is coughing productive to yellowish greenish sputum. CARDIAC: She does have chest heaviness and discomfort, not able to breathe, but denies swelling in the lower extremities. HEENT: Denies sore throat or nasal congestion. GASTROINTESTINAL: She does have bloating, abdominal discomfort, and cramping. She has not had a bowel movement for 1 day, but before that she was having very smelly stools like when she had C. diff before. GENITOURINARY: She does have urinary incontinence. Denies dysuria. MUSCULOSKELETAL: She does have osteoarthritis and chronic back pain. NEUROLOGY: She does not have any deficit, but does have neuropathy and pain in the lower extremities. PHYSICAL EXAMINATION: GENERAL: She is alert and oriented, in acute distress due to shortness of breath. She was not able to complete a sentence due to the shortness of breath even though she does her oxygen on. Her tympanic membranes were clear. Mucous membranes are moist and normal. NECK: Supple. LUNGS: With poor air movement and scattered wheezes bilaterally. HEART: Irregularly irregular. ABDOMEN: Distended, tender diffusely. No rebound, no guarding, no masses, no bruits, no ascites. EXTREMITIES: She did not have edema, clubbing or cyanosis. NEUROLOGICAL: Intact. IMPRESSION: 1. Chronic obstructive pulmonary disease exacerbation with acute on chronic respiratory failure. 2. Abdominal pain and bloating, rule out recurrent Clostridium difficile versus just constipation. 3. Hypertension, hypertensive cardiovascular disease. 4. Atrial fibrillation, on chronic anticoagulation. 5. Gastroesophageal reflux disease. 6. Previous history of Clostridium difficile. 7. Osteoarthritis. PLAN: The patient is admitted, started on bronchodilators, steroids and antibiotics and Flagyl to prevent Clostridium difficile, a stool sample will be sent for Clostridium difficile. Pulmonary consulted. JAS CARREON MD DR: MARY/adrienne JOB#: [id number] / [id number]
[2016-12-29] MEDS: ANTI-COAG MONITOR BY PHARMACY. MC PRN (12:42)
[2016-12-29 14:43] VITALS: BP 134/71
--- NOTE | 2016-12-29 15:58 | PDOC ---
PULMONARY PROGRESS NOTES Vitals Vital Signs Date Time Temp Pulse Resp B/P (MAP) Pulse Ox O2 Delivery O2 Flow Rate FiO2 12/29/16 14:43 97.7 83 18 134/71 (92) 95 Nasal Cannula 3.0 97.7 General: No acute distress HEENT: Other Lungs: Other Cardiovascular: S1, S2 Abdomen: Soft, Non-tender Extremities: No Edema, Other Labs Laboratory Tests Test 12/28/16 14:50 12/28/16 20:45 12/29/16 03:40 White Blood Count 7.4 x10^3/uL (4.0-11.0) Red Blood Count 4.53 x10^6/uL (3.50-5.40) Hemoglobin 13.6 g/dL (12.0-15.5) Hematocrit 41.2 % (36.0-47.0) Mean Corpuscular Volume 91 fL (79-100) Mean Corpuscular Hemoglobin 30 pg (25-35) Mean Corpuscular Hemoglobin Concent 33 g/dL (31-37) Red Cell Distribution Width 22.0 % (11.5-14.5) Platelet Count 173 x10^3/uL (140-400) Neutrophils (%) (Auto) 86 % (31-73) Lymphocytes (%) (Auto) 11 % (24-48) Monocytes (%) (Auto) 3 % (0-9) Eosinophils (%) (Auto) 0 % (0-3) Basophils (%) (Auto) 0 % (0-3) Neutrophils # (Auto) 6.4 x10^3uL (1.8-7.7) Lymphocytes # (Auto) 0.8 x10^3/uL (1.0-4.8) Monocytes # (Auto) 0.2 x10^3/uL (0.0-1.1) Eosinophils # (Auto) 0.0 x10^3/uL (0.0-0.7) Basophils # (Auto) 0.0 x10^3/uL (0.0-0.2) Segmented Neutrophils % 85 % (35-66) Lymphocytes % 13 % (24-48) Atypical Lymphocytes % (Manual) 1 % (0-0) Monocytes % 1 % (0-10) Platelet Estimate Adequate (ADEQUATE) Poikilocytosis Slight Anisocytosis Mod Sodium Level 145 mmol/L (136-145) Potassium Level 4.2 mmol/L (3.5-5.1) Chloride Level 103 mmol/L (98-107) Carbon Dioxide Level 36 mmol/L (21-32) Anion Gap 6 (6-14) Blood Urea Nitrogen 18 mg/dL (7-20) Creatinine 0.9 mg/dL (0.6-1.0) Estimated GFR (Cockcroft-Gault) 60.9 BUN/Creatinine Ratio 20 (6-20) Glucose Level 170 mg/dL (70-99) Calcium Level 9.2 mg/dL (8.5-10.1) Total Bilirubin 0.5 mg/dL (0.2-1.0) Aspartate Amino Transf (AST/SGOT) 16 U/L (15-37) Alanine Aminotransferase (ALT/SGPT) 25 U/L (14-59) Alkaline Phosphatase 69 U/L (46-116) Troponin I Quantitative < 0.017 ng/mL (0.000-0.055) < 0.017 ng/mL (0.000-0.055) < 0.017 ng/mL (0.000-0.055) MM-Hsc-R-Type Natriuretic Peptide 133 pg/mL (0-449) Total Protein 6.1 g/dL (6.4-8.2) Albumin 3.2 g/dL (3.4-5.0) Albumin/Globulin Ratio 1.1 (1.0-1.7) Laboratory Tests Test 12/28/16 20:45 12/29/16 03:40 Troponin I Quantitative < 0.017 ng/mL (0.000-0.055) < 0.017 ng/mL (0.000-0.055) Medications Active Scripts Medications Dose Route/Sig Max Daily Dose Days Date Category Dose Instructions Montelukast Sodium Tablet (Montelukast Sodium) 10 Mg Tablet 10 Mg PO QHS 30 12/06/16 Rx Flagyl (Metronidazole) 500 Mg Tablet 500 Mg PO Q8HRS 10 12/06/16 Rx Prednisone 20 Mg Tablet 10 Mg PO DAILY 28 12/06/16 Rx 4 tab x3 d then 3 tab x 3d then 2 tab x3d theb 1 tab daily Gabapentin 300 Mg Capsule 300 Mg PO TID 10/16/16 Rx Feosol (Ferrous Sulfate) 325 Mg Tablet 325 Mg PO BID 10/16/16 Rx Vitamin B-12 (Cyanocobalamin (Vitamin B-12)) 1,000 Mcg Tablet 1,000 Mcg PO DAILY 10/16/16 Rx Voltaren (Diclofenac Sodium) 100 Gm Gel..gram. 1 Gm TP QID PRN 06/20/16 Reported Benzonatate 100 Mg Capsule 100 Mg PO DAILY PRN 06/20/16 Reported Citracal + D Er Tablet (Calcium Carb & Cit/Vitamin D3) 1 Each Tablet.er 1 Each PO DAILY 06/20/16 Reported Hydrochlorothiazide Capsule (Hydrochlorothiazide) 12.5 Mg Capsule 1 Cap PO DAILY PRN 06/20/16 Reported Mucinex (Guaifenesin) 600 Mg Tablet.er 600 Mg PO BID 7 04/22/16 Rx Eliquis (Apixaban) 5 Mg Tablet 10 Mg PO DAILY 11/24/15 Reported Albuterol Sulfate Neb Soln (Albuterol Sulfate) 0.63 Mg/3 Ml Vial.neb 1 Vial NEB PRN TID PRN 09/25/15 Reported Pepcid (Famotidine) 20 Mg Tablet 10 Mg PO HS 07/29/15 Reported Duoneb 0.5-3(2.5) Mg/3 Ml (Albuterol/Ipratropium) 3 Ml Ampul.neb 3 Ml IH QID 03/24/15 Reported Omeprazole 20 Mg Capsule. 1 Cap PO DAILY 02/27/14 Reported Impression . NOTE DICTATED AGREE WITH CURRENT RX ADD IS ABBY FRANCIS MD Dec 29, 2016 15:58
[2016-12-29 19:00] VITALS: BP 125/63
[2016-12-29] MEDS: HYDROcodone/APAP 7.5/325MG 1 TAB TABLET PO PRN (20:37)
[2016-12-29] MEDS: MONTELUKAST SODIUM 10 MG TABLET. PO SCH (20:37)
[2016-12-29] MEDS: ZOLPIDEM 5 MG TABLET. PO PRN (20:38)
[2016-12-29 23:00] VITALS: BP 125/76
[2016-12-30 04:00] VITALS: BP 127/69
[2016-12-30] MEDS: IPRATRPIUM/ALBUTEROL 0.5/2.5MG 3 ML NEBU. NEB SCH ×6 (04:00→23:37)
[2016-12-30 05:08] LABS: HEMATOCRIT 38.9 % (36.0-47.0); HEMOGLOBIN 12.5 g/dL (12.0-15.5); RED BLOOD COUNT 4.3 x10^6/uL (3.50-5.40); RED CELL DISTRIBUTION WIDTH 21.1 % (11.5-14.5); WHITE BLOOD COUNT 13.2 x10^3/uL (4.0-11.0)
[2016-12-30 05:27] LABS: CALCIUM 8.9 mg/dL (8.5-10.1); CREATININE 1.1 mg/dL (0.6-1.0); GFR 48.3; POTASSIUM 3.4 mmol/L (3.5-5.1)
--- NOTE | 2016-12-30 06:25 | CONS ---
DATE OF CONSULTATION: 12/29/2016 ATTENDING PHYSICIAN: Eliceo Pichardo M.D. DICTATING PHYSICIAN: Dr. Francis. REASON FOR CONSULTATION: The patient is seen in pulmonary consultation at the request of Dr. Pichardo for acute on chronic respiratory failure. HISTORY OF PRESENT ILLNESS: The patient is a 76-year-old well known to me from previous hospitalization. She has underlying chronic respiratory failure, presented to Dr. Pichardo's office with increasing shortness of breath, cough, mostly nonproductive normally is on 3 liters of oxygen supplementation. She was requiring 4 liters continuously. The patient was also having some abdominal distension. She has had previous C. diff colitis. Increasing lower extremity edema. No fever, chills. No productive cough. PAST MEDICAL HISTORY: Remarkable for chronic respiratory failure, severe COPD, C. diff colitis, paroxysmal AFib, hypertension, history of DVT, gastroesophageal reflux, obstructive sleep apnea, INTOLERANT TO CPAP and chronic back pain. PAST SURGICAL HISTORY: As above. ALLERGIES: TO SULFA. MEDICATIONS: List was reviewed. Please see the MRAD. CURRENT MEDICATIONS: List was likewise reviewed. SOCIAL HISTORY: She smokes over 2 packs of cigarettes per day for many years, continues to smoke. FAMILY HISTORY: Positive for hypertension. REVIEW OF SYSTEMS: As indicated above, otherwise, a 10-point system was reviewed and negative. PHYSICAL EXAMINATION: GENERAL: The patient was resting comfortably in bed on 3 liters. When she moves, she was severely short of breath. HEENT: Eyes, the sclerae were nonicteric. NECK: Jugular venous distention was not elevated. No lymphadenopathy. CHEST: Full expansion. LUNGS: Poor airway flow with no wheezes. CARDIOVASCULAR: Regular rate and rhythm with S1, S2. No S3. ABDOMEN: Obese, soft and distended. EXTREMITIES: No pitting edema. NEUROLOGIC: The patient was awake, alert, following commands. A detailed neuro exam was not performed. LABORATORY DATA: Reviewed. The electrolytes were noted. BUN and creatinine noted. Troponin level was not elevated. Albumin was low. Chest x-ray was reviewed. There was ____ of the lung bases compatible with possible pneumonia or atelectasis. IMPRESSION: 1. Acute on chronic respiratory failure. 2. Acute exacerbation of chronic obstructive pulmonary disease. 3. Abdominal distension and bloating, compressing diaphragms causing atelectasis. 4. Hypertension. 5. Chronic atrial fibrillation on chronic anticoagulation. 6. Tobacco dependence. 7. History of Clostridium difficile colitis. PLAN: 1. Concur with current medical management, recommend initiating incentive spirometry. 2. Hold off on antibiotics. 3. Nebulized treatments. 4. Recommend discontinuing prednisone as an outpatient, the patient apparently has been on 10 mg of prednisone for quite some time. The patient was instructed on the importance of discontinuing tobacco use. I do appreciate the privilege in sharing in the patient's care. ABBY FRANCIS MD DR: RADHA/adrienne JOB#: [id number] / [id number]
[2016-12-30] MEDS: methylPREDNISolone SOD SUCC PF 125 MG/2 ML VIAL. IV SCH ×2 (06:26→14:01)
[2016-12-30] MEDS: metroNIDAZOLE 500 MG TABLET PO SCH ×3 (06:27→21:49)
[2016-12-30 07:00] VITALS: BP 135/73
--- NOTE | 2016-12-30 08:42 | PDOC ---
Provider Note Provider Note sleeping, no dyspnea- labs ok- on doxy/solumed/rt- add protonix GONZALEZ DUNAWAY MD Dec 30, 2016 08:42
[2016-12-30] MEDS: APIXABAN 5 MG TABLET. PO SCH ×2 (08:58→20:44)
[2016-12-30] MEDS: PANTOPRAZOLE 40 MG TABLET.DR. PO SCH (08:58)
[2016-12-30] MEDS: NICOTINE 21MG PATCH. TD SCH (08:58)
[2016-12-30] MEDS: FAMOTIDINE 20 MG TABLET. PO SCH ×2 (08:59→20:44)
[2016-12-30] MEDS: DOXYCYCLINE HYCLATE 100 MG TABLET PO SCH ×2 (08:59→20:44)
[2016-12-30] MEDS: BENZONATATE 100 MG CAPSULE. PO PRN (08:59)
[2016-12-30] MEDS: hydroCHLOROthiazide 12.5 MG CAPSULE PO SCH (09:00)
[2016-12-30] MEDS: GABAPENTIN 300 MG CAPSULE. PO SCH ×2 (09:00→20:44)
[2016-12-30 11:00] VITALS: BP 137/67
--- NOTE | 2016-12-30 12:53 | PDOC ---
PULMONARY PROGRESS NOTES Subjective PT WANTS TO GO HOME Vitals Vital Signs Date Time Temp Pulse Resp B/P (MAP) Pulse Ox O2 Delivery O2 Flow Rate FiO2 12/30/16 11:15 Nasal Cannula 3.0 12/30/16 11:00 97.5 82 18 137/67 (90) 96 97.5 ROS: No Nausea, No Chest Pain, No Increase Cough General: Alert, No acute distress HEENT: Other Lungs: Clear, Other Cardiovascular: S1, S2 Abdomen: Soft, Non-tender Neuro Exam: Alert Extremities: No Edema, Other Skin: Warm Labs Laboratory Tests Test 12/28/16 14:50 12/28/16 20:45 12/29/16 03:40 12/30/16 04:13 White Blood Count 7.4 x10^3/uL (4.0-11.0) Red Blood Count 4.53 x10^6/uL (3.50-5.40) Hemoglobin 13.6 g/dL (12.0-15.5) Hematocrit 41.2 % (36.0-47.0) Mean Corpuscular Volume 91 fL (79-100) Mean Corpuscular Hemoglobin 30 pg (25-35) Mean Corpuscular Hemoglobin Concent 33 g/dL (31-37) Red Cell Distribution Width 22.0 % (11.5-14.5) Platelet Count 173 x10^3/uL (140-400) Neutrophils (%) (Auto) 86 % (31-73) Lymphocytes (%) (Auto) 11 % (24-48) Monocytes (%) (Auto) 3 % (0-9) Eosinophils (%) (Auto) 0 % (0-3) Basophils (%) (Auto) 0 % (0-3) Neutrophils # (Auto) 6.4 x10^3uL (1.8-7.7) Lymphocytes # (Auto) 0.8 x10^3/uL (1.0-4.8) Monocytes # (Auto) 0.2 x10^3/uL (0.0-1.1) Eosinophils # (Auto) 0.0 x10^3/uL (0.0-0.7) Basophils # (Auto) 0.0 x10^3/uL (0.0-0.2) Segmented Neutrophils % 85 % (35-66) Lymphocytes % 13 % (24-48) Atypical Lymphocytes % (Manual) 1 % (0-0) Monocytes % 1 % (0-10) Platelet Estimate Adequate (ADEQUATE) Poikilocytosis Slight Anisocytosis Mod Sodium Level 145 mmol/L (136-145) 141 mmol/L (136-145) Potassium Level 4.2 mmol/L (3.5-5.1) 3.4 mmol/L (3.5-5.1) Chloride Level 103 mmol/L (98-107) 102 mmol/L (98-107) Carbon Dioxide Level 36 mmol/L (21-32) 32 mmol/L (21-32) Anion Gap 6 (6-14) 7 (6-14) Blood Urea Nitrogen 18 mg/dL (7-20) 29 mg/dL (7-20) Creatinine 0.9 mg/dL (0.6-1.0) 1.1 mg/dL (0.6-1.0) Estimated GFR (Cockcroft-Gault) 60.9 48.3 BUN/Creatinine Ratio 20 (6-20) Glucose Level 170 mg/dL (70-99) 211 mg/dL (70-99) Calcium Level 9.2 mg/dL (8.5-10.1) 8.9 mg/dL (8.5-10.1) Total Bilirubin 0.5 mg/dL (0.2-1.0) Aspartate Amino Transf (AST/SGOT) 16 U/L (15-37) Alanine Aminotransferase (ALT/SGPT) 25 U/L (14-59) Alkaline Phosphatase 69 U/L (46-116) Troponin I Quantitative < 0.017 ng/mL (0.000-0.055) < 0.017 ng/mL (0.000-0.055) < 0.017 ng/mL (0.000-0.055) SI-Raq-Q-Type Natriuretic Peptide 133 pg/mL (0-449) Total Protein 6.1 g/dL (6.4-8.2) Albumin 3.2 g/dL (3.4-5.0) Albumin/Globulin Ratio 1.1 (1.0-1.7) Test 12/30/16 04:15 White Blood Count 13.2 x10^3/uL (4.0-11.0) Red Blood Count 4.30 x10^6/uL (3.50-5.40) Hemoglobin 12.5 g/dL (12.0-15.5) Hematocrit 38.9 % (36.0-47.0) Mean Corpuscular Volume 90 fL (79-100) Mean Corpuscular Hemoglobin 29 pg (25-35) Mean Corpuscular Hemoglobin Concent 32 g/dL (31-37) Red Cell Distribution Width 21.1 % (11.5-14.5) Platelet Count 177 x10^3/uL (140-400) Laboratory Tests Test 12/30/16 04:13 12/30/16 04:15 Sodium Level 141 mmol/L (136-145) Potassium Level 3.4 mmol/L (3.5-5.1) Chloride Level 102 mmol/L (98-107) Carbon Dioxide Level 32 mmol/L (21-32) Anion Gap 7 (6-14) Blood Urea Nitrogen 29 mg/dL (7-20) Creatinine 1.1 mg/dL (0.6-1.0) Estimated GFR (Cockcroft-Gault) 48.3 Glucose Level 211 mg/dL (70-99) Calcium Level 8.9 mg/dL (8.5-10.1) White Blood Count 13.2 x10^3/uL (4.0-11.0) Red Blood Count 4.30 x10^6/uL (3.50-5.40) Hemoglobin 12.5 g/dL (12.0-15.5) Hematocrit 38.9 % (36.0-47.0) Mean Corpuscular Volume 90 fL (79-100) Mean Corpuscular Hemoglobin 29 pg (25-35) Mean Corpuscular Hemoglobin Concent 32 g/dL (31-37) Red Cell Distribution Width 21.1 % (11.5-14.5) Platelet Count 177 x10^3/uL (140-400) Medications Active Scripts Medications Dose Route/Sig Max Daily Dose Days Date Category Dose Instructions Montelukast Sodium Tablet (Montelukast Sodium) 10 Mg Tablet 10 Mg PO QHS 30 12/06/16 Rx Flagyl (Metronidazole) 500 Mg Tablet 500 Mg PO Q8HRS 10 12/06/16 Rx Prednisone 20 Mg Tablet 10 Mg PO DAILY 28 12/06/16 Rx 4 tab x3 d then 3 tab x 3d then 2 tab x3d theb 1 tab daily Gabapentin 300 Mg Capsule 300 Mg PO TID 10/16/16 Rx Feosol (Ferrous Sulfate) 325 Mg Tablet 325 Mg PO BID 10/16/16 Rx Vitamin B-12 (Cyanocobalamin (Vitamin B-12)) 1,000 Mcg Tablet 1,000 Mcg PO DAILY 10/16/16 Rx Voltaren (Diclofenac Sodium) 100 Gm Gel..gram. 1 Gm TP QID PRN 06/20/16 Reported Benzonatate 100 Mg Capsule 100 Mg PO DAILY PRN 06/20/16 Reported Citracal + D Er Tablet (Calcium Carb & Cit/Vitamin D3) 1 Each Tablet.er 1 Each PO DAILY 06/20/16 Reported Hydrochlorothiazide Capsule (Hydrochlorothiazide) 12.5 Mg Capsule 1 Cap PO DAILY PRN 06/20/16 Reported Mucinex (Guaifenesin) 600 Mg Tablet.er 600 Mg PO BID 7 04/22/16 Rx Eliquis (Apixaban) 5 Mg Tablet 10 Mg PO DAILY 11/24/15 Reported Albuterol Sulfate Neb Soln (Albuterol Sulfate) 0.63 Mg/3 Ml Vial.neb 1 Vial NEB PRN TID PRN 09/25/15 Reported Pepcid (Famotidine) 20 Mg Tablet 10 Mg PO HS 07/29/15 Reported Duoneb 0.5-3(2.5) Mg/3 Ml (Albuterol/Ipratropium) 3 Ml Ampul.neb 3 Ml IH QID 03/24/15 Reported Omeprazole 20 Mg Capsule. 1 Cap PO DAILY 02/27/14 Reported Impression . 1. Acute on chronic respiratory failure. 2. Acute exacerbation of chronic obstructive pulmonary disease. 3. Abdominal distension and bloating, compressing diaphragms causing atelectasis. 4. Hypertension. 5. Chronic atrial fibrillation on chronic anticoagulation. 6. Tobacco dependence. 7. History of Clostridium difficile colitis. Plan . OK TO D/C FROM MY STANDPOINT 1. Concur with current medical management, recommend initiating incentive spirometry. 2. Hold off on antibiotics. 3. Nebulized treatments. 4. Recommend discontinuing prednisone as an outpatient, the patient apparently has been on 10 mg of prednisone for quite some time. ABBY FRANCIS MD Dec 30, 2016 12:53
[2016-12-30] MEDS: ANTI-COAG MONITOR BY PHARMACY. MC PRN (13:18)
[2016-12-30 15:00] VITALS: BP 122/80
[2016-12-30 19:00] VITALS: BP 134/65
[2016-12-30] MEDS: MONTELUKAST SODIUM 10 MG TABLET. PO SCH (20:44)
[2016-12-30] MEDS: ZOLPIDEM 5 MG TABLET. PO PRN (21:52)
[2016-12-30 23:12] VITALS: BP 143/61
[2016-12-31 03:04] VITALS: BP 130/60
[2016-12-31] MEDS: IPRATRPIUM/ALBUTEROL 0.5/2.5MG 3 ML NEBU. NEB SCH ×3 (03:10→11:16)
[2016-12-31] MEDS: metroNIDAZOLE 500 MG TABLET PO SCH (06:12)
[2016-12-31 07:00] VITALS: BP 131/74
[2016-12-31] MEDS: BENZONATATE 100 MG CAPSULE. PO PRN (08:21)
[2016-12-31] MEDS: PANTOPRAZOLE 40 MG TABLET.DR. PO SCH (08:21)
[2016-12-31] MEDS: hydroCHLOROthiazide 12.5 MG CAPSULE PO SCH (08:21)
[2016-12-31] MEDS: GABAPENTIN 300 MG CAPSULE. PO SCH (08:21)
[2016-12-31] MEDS: APIXABAN 5 MG TABLET. PO SCH (08:22)
[2016-12-31] MEDS: DOXYCYCLINE HYCLATE 100 MG TABLET PO SCH (08:22)
[2016-12-31] MEDS: NICOTINE 21MG PATCH. TD SCH (08:22)
[2016-12-31] MEDS: FAMOTIDINE 20 MG TABLET. PO SCH (08:22)
[2016-12-31] MEDS ORDERED: predniSONE 20 MG TABLET PO SCH (09:00)
--- NOTE | 2016-12-31 09:24 | PDOC ---
PULMONARY PROGRESS NOTES Subjective PT WANTS TO GO HOME, sob better, has occ cough. no pain, is on home 02, was on trilogy at some point, doesn't want to use it Vitals Vital Signs Date Time Temp Pulse Resp B/P (MAP) Pulse Ox O2 Delivery O2 Flow Rate FiO2 12/31/16 07:18 96 Nasal Cannula 3.0 12/31/16 07:00 97.5 89 19 131/74 (93) 97.5 ROS: No Nausea, No Chest Pain, No Increase Cough General: Alert, No acute distress HEENT: Other (nc at perrl. ) Lungs: Clear Cardiovascular: S1, S2 Abdomen: Soft, Non-tender Neuro Exam: Alert Extremities: No Edema, Other Skin: Warm Labs Laboratory Tests Test 12/30/16 04:13 12/30/16 04:15 12/30/16 07:00 Sodium Level 141 mmol/L (136-145) Potassium Level 3.4 mmol/L (3.5-5.1) Chloride Level 102 mmol/L (98-107) Carbon Dioxide Level 32 mmol/L (21-32) Anion Gap 7 (6-14) Blood Urea Nitrogen 29 mg/dL (7-20) Creatinine 1.1 mg/dL (0.6-1.0) Estimated GFR (Cockcroft-Gault) 48.3 Glucose Level 211 mg/dL (70-99) Calcium Level 8.9 mg/dL (8.5-10.1) White Blood Count 13.2 x10^3/uL (4.0-11.0) Red Blood Count 4.30 x10^6/uL (3.50-5.40) Hemoglobin 12.5 g/dL (12.0-15.5) Hematocrit 38.9 % (36.0-47.0) Mean Corpuscular Volume 90 fL (79-100) Mean Corpuscular Hemoglobin 29 pg (25-35) Mean Corpuscular Hemoglobin Concent 32 g/dL (31-37) Red Cell Distribution Width 21.1 % (11.5-14.5) Platelet Count 177 x10^3/uL (140-400) Clostridium difficile Toxin (PCR) Positive (Negative) Medications Active Scripts Medications Dose Route/Sig Max Daily Dose Days Date Category Dose Instructions Montelukast Sodium Tablet (Montelukast Sodium) 10 Mg Tablet 10 Mg PO QHS 30 12/06/16 Rx Flagyl (Metronidazole) 500 Mg Tablet 500 Mg PO Q8HRS 10 12/06/16 Rx Prednisone 20 Mg Tablet 10 Mg PO DAILY 28 12/06/16 Rx 4 tab x3 d then 3 tab x 3d then 2 tab x3d theb 1 tab daily Gabapentin 300 Mg Capsule 300 Mg PO TID 10/16/16 Rx Feosol (Ferrous Sulfate) 325 Mg Tablet 325 Mg PO BID 10/16/16 Rx Vitamin B-12 (Cyanocobalamin (Vitamin B-12)) 1,000 Mcg Tablet 1,000 Mcg PO DAILY 10/16/16 Rx Voltaren (Diclofenac Sodium) 100 Gm Gel..gram. 1 Gm TP QID PRN 06/20/16 Reported Benzonatate 100 Mg Capsule 100 Mg PO DAILY PRN 06/20/16 Reported Citracal + D Er Tablet (Calcium Carb & Cit/Vitamin D3) 1 Each Tablet.er 1 Each PO DAILY 06/20/16 Reported Hydrochlorothiazide Capsule (Hydrochlorothiazide) 12.5 Mg Capsule 1 Cap PO DAILY PRN 06/20/16 Reported Mucinex (Guaifenesin) 600 Mg Tablet.er 600 Mg PO BID 7 04/22/16 Rx Eliquis (Apixaban) 5 Mg Tablet 10 Mg PO DAILY 11/24/15 Reported Albuterol Sulfate Neb Soln (Albuterol Sulfate) 0.63 Mg/3 Ml Vial.neb 1 Vial NEB PRN TID PRN 09/25/15 Reported Pepcid (Famotidine) 20 Mg Tablet 10 Mg PO HS 07/29/15 Reported Duoneb 0.5-3(2.5) Mg/3 Ml (Albuterol/Ipratropium) 3 Ml Ampul.neb 3 Ml IH QID 03/24/15 Reported Omeprazole 20 Mg Capsule. 1 Cap PO DAILY 02/27/14 Reported Impression . 1. Acute on chronic respiratory failure. 2. Acute exacerbation of chronic obstructive pulmonary disease. 3. Abdominal distension and bloating, compressing diaphragms causing atelectasis. 4. Hypertension. 5. Chronic atrial fibrillation on chronic anticoagulation. 6. Tobacco dependence. 7. History of Clostridium difficile colitis. Plan . OK TO D/C FROM MY STANDPOINT 1. Concur with current medical management, incentive spirometry. 2. Hold off on antibiotics. 3. Nebulized treatments. 4. prednisone w taper. Recommend discontinuing prednisone as an outpatient, the patient apparently has been on 10 mg of prednisone for quite some time. 5. the importance of tx of gary discussed, doesn't want trilogy, cpap or bipap 6. bronchodilator 7. lose wt. 8. cont 02 discussed w pt IFEANYI NICHOLAS MD Dec 31, 2016 09:24
[2016-12-31 11:00] VITALS: BP 140/55
--- NOTE | 2016-12-31 11:09 | DISCH ---
DISCHARGE INSTRUCTIONS Condition on Discharge Condition on Discharge: Stable Activity After Discharge Activity Instructions for Disc: No restrictions Diet after Discharge Diet after Discharge: Regular Follow-Up Follow up with: dr ambrocio 1-2 w GONZALEZ DUNAWAY MD Dec 31, 2016 11:09
[2016-12-31] MEDS: ANTI-COAG MONITOR BY PHARMACY. MC PRN (11:10)
--- NOTE | 2016-12-31 11:12 | PDOC ---
Provider Note Provider Note [id number] GONZALEZ DUNAWAY MD Dec 31, 2016 11:12
[2016-12-31] MEDS ORDERED: FLUCONAZOLE 100 MG TABLET. PO ONE (11:15)
--- NOTE | 2016-12-31 13:36 | DS ---
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 CBC and chemistry were unremarkable. Troponin was negative, but serology showed positive for C. diff. Chest x-ray showed mild atelectasis, but no acute changes. Vital signs remained stable and she was maintained on home oxygen and metronidazole was started for the C. diff. She is comfortable to be followed as an outpatient at this point. FINAL DIAGNOSES: 1. Recurrent Clostridium difficile colitis. 2. Oropharyngeal candidiasis. OPERATIONS, PROCEDURES, COMPLICATIONS: None. CONSULTATIONS: Dr. Chapin. DISPOSITION: She will take Flagyl 500 mg 3 times a day for 8 more days, fluconazole 100 mg daily for 1 week. Home meds remain the same and she will discuss weaning off the home steroids with Dr. Pichardo on gradual basis. PROGNOSIS: Good. GONZALEZ DUNAWAY MD DR: PÉREZ/adrienne JOB#: [id number] / [id number]
== END 2016-12-31 12:39 | disposition home or self-care (01) | DRG 371 ==
LOC: 5 NORTH 11:40
PROVIDERS: ADMIT Internal Medicine; ATTEND Internal Medicine
DX: A04.7 Enterocolitis due to Clostridium difficile (principal); J96.20 Acute and chronic respiratory failure, unspecified whether with hypoxia or hypercapnia; J44.1 Chronic obstructive pulmonary disease with (acute) exacerbation; J98.11 Atelectasis; I50.30 Unspecified diastolic (congestive) heart failure; B37.0 Candidal stomatitis; Z96.641 Presence of right artificial hip joint; I48.0 Paroxysmal atrial fibrillation; E66.9 Obesity, unspecified; F32.9 Major depressive disorder, single episode, unspecified; F41.9 Anxiety disorder, unspecified; G89.29 Other chronic pain; R32 Unspecified urinary incontinence; I11.0 Hypertensive heart disease with heart failure; G47.33 Obstructive sleep apnea (adult) (pediatric); F17.210 Nicotine dependence, cigarettes, uncomplicated; K21.9 Gastro-esophageal reflux disease without esophagitis; M19.90 Unspecified osteoarthritis, unspecified site; Z79.01 Long term (current) use of anticoagulants; Z82.49 Family history of ischemic heart disease and other diseases of the circulatory system; Z86.19 Personal history of other infectious and parasitic diseases; Z86.718 Personal history of other venous thrombosis and embolism; Z90.710 Acquired absence of both cervix and uterus; Z90.722 Acquired absence of ovaries, bilateral; Z99.81 Dependence on supplemental oxygen; Z88.2 Allergy status to sulfonamides; Z68.36 Body mass index [BMI] 36.0-36.9, adult
CPT/HCPCS: 36415; 71020; 80048; 80053; 83880; 84484; 85007; 85027; 87324; 93005; 94250; 94640; 94760; G0238; J2930; J7512; J7620

== ENCOUNTER 2018-01-07 02:54 | Inpatient (IN) | payer BC ==
[2018-01-07 03:15] LABS: ADD MAN DIFF? NO
[2018-01-07 03:17] LABS: BASO # 0.1 x10^3/uL (0.0-0.2); BASO % 1 % (0-3); EOS # 0.1 x10^3/uL (0.0-0.7); EOS % 0 % (0-3); HEMATOCRIT 33.7 % (36.0-47.0); HEMOGLOBIN 11.2 g/dL (12.0-15.5); LYMPH # 1.6 x10^3/uL (1.0-4.8); LYMPH % 11 % (24-48); MEAN CORPUSCULAR HEMOGLOBIN 30 pg (25-35); MEAN CORPUSCULAR HGB CONC 33 g/dL (31-37); MEAN CORPUSCULAR VOLUME 90 fL (79-100); MONO # 1.1 x10^3/uL (0.0-1.1); MONO % 7 % (0-9); NEUT # 11.7 x10^3uL (1.8-7.7); NEUT % 81 % (31-73); PLATELET COUNT 198 x10^3/uL (140-400); RED BLOOD COUNT 3.73 x10^6/uL (3.50-5.40); RED CELL DISTRIBUTION WIDTH 14.5 % (11.5-14.5); WHITE BLOOD COUNT 14.5 x10^3/uL (4.0-11.0)
[2018-01-07] MEDS: IPRATRPIUM/ALBUTEROL 0.5/2.5MG 3 ML NEBU. NEB ×5 (03:20→19:50)
[2018-01-07 03:27] LABS: ANION GAP 3 (6-14); BLOOD UREA NITROGEN 17 mg/dL (7-20); CALCIUM 8.5 mg/dL (8.5-10.1); CARBON DIOXIDE 35 mmol/L (21-32); CHLORIDE 103 mmol/L (98-107); CREATININE 0.8 mg/dL (0.6-1.0); GFR 69.6; GLUCOSE 132 mg/dL (70-99); POTASSIUM 3.4 mmol/L (3.5-5.1); SODIUM 141 mmol/L (136-145)
[2018-01-07] MEDS: methylPREDNISolone SOD SUCC PF 125 MG/2 ML VIAL. IV (03:28)
[2018-01-07 03:36] LABS: LACTIC ACID 0.9 mmol/L (0.4-2.0)
[2018-01-07 03:38] LABS: TROPONINI < 0.017 ng/mL (0.000-0.055)
[2018-01-07 03:41] LABS: NT-PRO BNP 226 pg/mL (0-449)
[2018-01-07] MEDS: ALBUTEROL SULFATE 2.5 MG/3 ML NEBU. CONT NEB (03:52)
[2018-01-07] MEDS: AZITHRMYCN 500MG IVPB FOR OMNI 250 ML IV (05:00)
[2018-01-07] MEDS ORDERED: ONDANSETRON PF 4 MG/2 ML VIAL. IV (05:00)
[2018-01-07] MEDS ORDERED: ACETAMINOPHEN 325 MG TABLET. PO (05:00)
[2018-01-07 08:03] LABS: TROPONINI < 0.017 ng/mL (0.000-0.055)
[2018-01-07] MEDS: methylPREDNISolone SOD SUCC PF 40 MG/ML VIAL. IV ×3 (09:26→21:59)
[2018-01-07 11:14] LABS: TROPONINI < 0.017 ng/mL (0.000-0.055)
[2018-01-07] MEDS: BUDESONIDE 0.5 MG/2 ML NEBU. NEB ×2 (11:15→19:50)
[2018-01-07] MEDS: PANTOPRAZOLE 40 MG TABLET.DR. PO (11:27)
[2018-01-07] MEDS ORDERED: hydroCHLOROthiazide 25 MG TABLET PO (16:00)
[2018-01-07] MEDS: GABAPENTIN 300 MG CAPSULE. PO ×2 (16:49→21:01)
[2018-01-07] MEDS: SERTRALINE 50 MG TABLET. PO (16:49)
[2018-01-07] MEDS: BENZONATATE 100 MG CAPSULE. PO (16:49)
[2018-01-07] MEDS ORDERED: LACTOBACILLUS RHAMNOSUS GG 1 CAPSULE. PO (21:00)
[2018-01-07] MEDS: NICOTINE 21MG PATCH. TD (21:00)
[2018-01-07] MEDS: LACTOBACILLUS RHAMNOSUS GG 1 CAPSULE. PO (21:01)
[2018-01-07] MEDS: APIXABAN 5 MG TABLET. PO (21:01)
[2018-01-07] MEDS: FAMOTIDINE 20 MG TABLET. PO (21:01)
[2018-01-07] MEDS: ZOLPIDEM 5 MG TABLET. PO (21:01)
[2018-01-08] MEDS: ALBUTEROL SULFATE 2.5 MG/3 ML NEBU. NEB (00:04)
[2018-01-08] MEDS: cefTRIAXone IV Push 1 GM VIAL. IVP (05:05)
[2018-01-08] MEDS: AZITHROMYCIN 500 MG in IV NORMAL SALINE 250ML 250 ML IV (05:06)
[2018-01-08 05:32] LABS: BASO # 0.1 x10^3/uL (0.0-0.2); BASO % 0 % (0-3); EOS % 0 % (0-3); HEMATOCRIT 32.9 % (36.0-47.0); HEMOGLOBIN 10.9 g/dL (12.0-15.5); LYMPH # 0.6 x10^3/uL (1.0-4.8); LYMPH % 4 % (24-48); MEAN CORPUSCULAR HEMOGLOBIN 30 pg (25-35); MEAN CORPUSCULAR HGB CONC 33 g/dL (31-37); MEAN CORPUSCULAR VOLUME 90 fL (79-100); MONO # 0.6 x10^3/uL (0.0-1.1); MONO % 4 % (0-9); NEUT # 15.8 x10^3uL (1.8-7.7); NEUT % 93 % (31-73); PLATELET COUNT 199 x10^3/uL (140-400); RED BLOOD COUNT 3.65 x10^6/uL (3.50-5.40); RED CELL DISTRIBUTION WIDTH 14.2 % (11.5-14.5)
[2018-01-08 05:37] LABS: ADD MAN DIFF? YES
[2018-01-08 05:49] LABS: ANION GAP 4 (6-14); BLOOD UREA NITROGEN 23 mg/dL (7-20); CARBON DIOXIDE 34 mmol/L (21-32); CHLORIDE 105 mmol/L (98-107); CREATININE 0.8 mg/dL (0.6-1.0); GFR 69.6; GLUCOSE 197 mg/dL (70-99); SODIUM 143 mmol/L (136-145)
[2018-01-08] MEDS: methylPREDNISolone SOD SUCC PF 40 MG/ML VIAL. IV ×3 (05:53→22:14)
[2018-01-08] MEDS: IPRATRPIUM/ALBUTEROL 0.5/2.5MG 3 ML NEBU. NEB ×4 (07:42→20:12)
[2018-01-08] MEDS: BUDESONIDE 0.5 MG/2 ML NEBU. NEB ×2 (07:42→20:12)
[2018-01-08 08:03] LABS: % BANDS 3 % (0-9); % LYMPHS 5 % (24-48); % MONOS 2 % (0-10); % SEGS 90 % (35-66); PLT ESTIMATE ADEQUATE (ADEQUATE)
[2018-01-08] MEDS: APIXABAN 5 MG TABLET. PO ×2 (08:17→21:00)
[2018-01-08] MEDS: LACTOBACILLUS RHAMNOSUS GG 1 CAPSULE. PO ×2 (08:19→20:59)
[2018-01-08] MEDS: BENZONATATE 100 MG CAPSULE. PO ×2 (08:19→22:30)
[2018-01-08] MEDS: NICOTINE 21MG PATCH. TD (08:19)
[2018-01-08] MEDS: PANTOPRAZOLE 40 MG TABLET.DR. PO (08:19)
[2018-01-08] MEDS: SERTRALINE 50 MG TABLET. PO (08:19)
[2018-01-08] MEDS: GABAPENTIN 300 MG CAPSULE. PO ×3 (08:25→21:00)
[2018-01-08] MEDS ORDERED: NON FORMULARY ITEM (Omeprazole 1 CAP) PO (09:00)
[2018-01-08] MEDS ORDERED: ONDANSETRON PF 4 MG/2 ML VIAL. IV (10:30)
[2018-01-08] MEDS ORDERED: DOCUSATE SODIUM 100 MG CAPSULE. PO (10:30)
[2018-01-08] MEDS ORDERED: MORPHINE SULFATE 2 MG/ML DISP.SYRIN. IV (10:30)
[2018-01-08] MEDS ORDERED: ALBUTEROL SULFATE 2.5 MG/3 ML NEBU. NEB (10:30)
[2018-01-08] MEDS ORDERED: hydrALAZINE 20 MG/ML VIAL. IVP (10:30)
[2018-01-08] MEDS ORDERED: DEXTROSE 50% 25 GM / 50ML DISP.SYRIN. IV (10:30)
[2018-01-08] MEDS ORDERED: ACETAMINOPHEN 325 MG TABLET. PO (10:30)
[2018-01-08 12:12] LABS: POC GLUCOSE 165 mg/dL (70-99)
[2018-01-08] MEDS: INSULIN LISPRO 300 UNITS/3 ML INSULN.PEN. SQ ×2 (12:41→18:25)
[2018-01-08] MEDS: ANTI-COAG MONITOR BY PHARMACY. MC (14:05)
[2018-01-08 16:52] LABS: POC GLUCOSE 219 mg/dL (70-99)
[2018-01-08 20:51] LABS: POC GLUCOSE 276 mg/dL (70-99)
[2018-01-08] MEDS: FAMOTIDINE 20 MG TABLET. PO (21:00)
[2018-01-08] MEDS: traMADol 50 MG TABLET PO (22:32)
[2018-01-09] MEDS: cefTRIAXone IV Push 1 GM VIAL. IVP (04:54)
[2018-01-09] MEDS: AZITHROMYCIN 500 MG in IV NORMAL SALINE 250ML 250 ML IV (04:55)
[2018-01-09 05:21] LABS: ADD MAN DIFF? NO
[2018-01-09 05:35] LABS: BASO % 0 % (0-3); EOS % 0 % (0-3); HEMATOCRIT 31.5 % (36.0-47.0); HEMOGLOBIN 10.3 g/dL (12.0-15.5); LYMPH # 0.5 x10^3/uL (1.0-4.8); LYMPH % 3 % (24-48); MEAN CORPUSCULAR HEMOGLOBIN 30 pg (25-35); MEAN CORPUSCULAR HGB CONC 33 g/dL (31-37); MEAN CORPUSCULAR VOLUME 91 fL (79-100); MONO # 0.4 x10^3/uL (0.0-1.1); MONO % 3 % (0-9); NEUT % 94 % (31-73); PLATELET COUNT 209 x10^3/uL (140-400); RED BLOOD COUNT 3.48 x10^6/uL (3.50-5.40); RED CELL DISTRIBUTION WIDTH 14.4 % (11.5-14.5)
[2018-01-09 05:51] LABS: ANION GAP 3 (6-14); BLOOD UREA NITROGEN 25 mg/dL (7-20); CALCIUM 8.8 mg/dL (8.5-10.1); CARBON DIOXIDE 34 mmol/L (21-32); CHLORIDE 105 mmol/L (98-107); CREATININE 0.8 mg/dL (0.6-1.0); GFR 69.6; GLUCOSE 171 mg/dL (70-99); POTASSIUM 4.4 mmol/L (3.5-5.1); SODIUM 142 mmol/L (136-145)
[2018-01-09] MEDS: methylPREDNISolone SOD SUCC PF 40 MG/ML VIAL. IV ×2 (05:57→14:08)
[2018-01-09] MEDS: IPRATRPIUM/ALBUTEROL 0.5/2.5MG 3 ML NEBU. NEB ×4 (07:28→19:40)
[2018-01-09] MEDS: BUDESONIDE 0.5 MG/2 ML NEBU. NEB ×2 (07:28→15:36)
[2018-01-09 07:56] LABS: POC GLUCOSE 190 mg/dL (70-99)
[2018-01-09] MEDS: APIXABAN 5 MG TABLET. PO ×2 (08:21→21:55)
[2018-01-09] MEDS: BENZONATATE 100 MG CAPSULE. PO ×3 (08:21→21:54)
[2018-01-09] MEDS: LACTOBACILLUS RHAMNOSUS GG 1 CAPSULE. PO ×2 (08:21→21:54)
[2018-01-09] MEDS: NICOTINE 21MG PATCH. TD (08:21)
[2018-01-09] MEDS: PANTOPRAZOLE 40 MG TABLET.DR. PO (08:21)
[2018-01-09] MEDS: SERTRALINE 50 MG TABLET. PO (08:22)
[2018-01-09] MEDS: INSULIN LISPRO 300 UNITS/3 ML INSULN.PEN. SQ ×4 (08:31→21:59)
[2018-01-09] MEDS: COLESTIPOL HCL 1 GM TABLET PO (10:38)
[2018-01-09] MEDS: ANTI-COAG MONITOR BY PHARMACY. MC (10:51)
[2018-01-09 11:56] LABS: POC GLUCOSE 289 mg/dL (70-99)
[2018-01-09] MEDS: GABAPENTIN 300 MG CAPSULE. PO ×2 (16:18→21:55)
[2018-01-09 17:05] LABS: POC GLUCOSE 110 mg/dL (70-99)
[2018-01-09 20:42] LABS: POC GLUCOSE 207 mg/dL (70-99)
[2018-01-09] MEDS: traMADol 50 MG TABLET PO (21:54)
[2018-01-09] MEDS: FAMOTIDINE 20 MG TABLET. PO (21:55)
[2018-01-10 05:08] LABS: ADD MAN DIFF? NO
[2018-01-10 05:18] LABS: BASO % 0 % (0-3); EOS % 0 % (0-3); HEMATOCRIT 31.3 % (36.0-47.0); HEMOGLOBIN 10.5 g/dL (12.0-15.5); LYMPH # 1.1 x10^3/uL (1.0-4.8); LYMPH % 10 % (24-48); MEAN CORPUSCULAR HEMOGLOBIN 30 pg (25-35); MEAN CORPUSCULAR HGB CONC 34 g/dL (31-37); MEAN CORPUSCULAR VOLUME 90 fL (79-100); MONO # 0.8 x10^3/uL (0.0-1.1); MONO % 7 % (0-9); NEUT # 9.2 x10^3uL (1.8-7.7); NEUT % 83 % (31-73); PLATELET COUNT 196 x10^3/uL (140-400); RED BLOOD COUNT 3.48 x10^6/uL (3.50-5.40); RED CELL DISTRIBUTION WIDTH 14.4 % (11.5-14.5); WHITE BLOOD COUNT 11.1 x10^3/uL (4.0-11.0)
[2018-01-10 05:39] LABS: ANION GAP 5 (6-14); BLOOD UREA NITROGEN 27 mg/dL (7-20); CALCIUM 8.9 mg/dL (8.5-10.1); CARBON DIOXIDE 33 mmol/L (21-32); CHLORIDE 104 mmol/L (98-107); GFR 53.8; GLUCOSE 120 mg/dL (70-99); SODIUM 142 mmol/L (136-145)
[2018-01-10] MEDS: IPRATRPIUM/ALBUTEROL 0.5/2.5MG 3 ML NEBU. NEB ×2 (07:03→10:22)
[2018-01-10] MEDS: BUDESONIDE 0.5 MG/2 ML NEBU. NEB (07:03)
[2018-01-10] MEDS: PANTOPRAZOLE 40 MG TABLET.DR. PO (07:45)
[2018-01-10 08:00] LABS: POC GLUCOSE 106 mg/dL (70-99)
[2018-01-10] MEDS: INSULIN LISPRO 300 UNITS/3 ML INSULN.PEN. SQ (08:00)
[2018-01-10] MEDS ORDERED: LACTOBACILLUS RHAMNOSUS GG 1 CAPSULE. PO (09:00)
[2018-01-10] MEDS: AMOXICILLIN/K CLAV 875/125MG TABLET. PO (09:23)
[2018-01-10] MEDS: SERTRALINE 50 MG TABLET. PO (09:24)
[2018-01-10] MEDS: LACTOBACILLUS RHAMNOSUS GG 1 CAPSULE. PO (09:24)
[2018-01-10] MEDS: AZITHROMYCIN 250 MG TABLET. PO (09:24)
[2018-01-10] MEDS: PREGABALIN 25 MG CAPSULE PO (09:25)
[2018-01-10] MEDS: APIXABAN 5 MG TABLET. PO (09:25)
[2018-01-10] MEDS: predniSONE 20 MG TABLET PO (09:25)
[2018-01-10] MEDS: NICOTINE 21MG PATCH. TD (09:26)
[2018-01-10] MEDS: COLESTIPOL HCL 1 GM TABLET PO (10:21)
== END 2018-01-10 11:00 | disposition home or self-care (01) | DRG 871 ==
LOC: ER 02:54 → 4 NORTH 04:45
DX: A41.9 Sepsis, unspecified organism (principal); J96.21 Acute and chronic respiratory failure with hypoxia; J44.1 Chronic obstructive pulmonary disease with (acute) exacerbation; J44.0 Chronic obstructive pulmonary disease with (acute) lower respiratory infection; J20.9 Acute bronchitis, unspecified; M19.90 Unspecified osteoarthritis, unspecified site; F17.210 Nicotine dependence, cigarettes, uncomplicated; K21.9 Gastro-esophageal reflux disease without esophagitis; I48.0 Paroxysmal atrial fibrillation; I10 Essential (primary) hypertension; E87.6 Hypokalemia; F32.9 Major depressive disorder, single episode, unspecified; F41.9 Anxiety disorder, unspecified; Z96.649 Presence of unspecified artificial hip joint; R32 Unspecified urinary incontinence; G89.29 Other chronic pain; G57.93 Unspecified mononeuropathy of bilateral lower limbs; E66.01 Morbid (severe) obesity due to excess calories; Z95.0 Presence of cardiac pacemaker; Z86.718 Personal history of other venous thrombosis and embolism; Z88.1 Allergy status to other antibiotic agents; Z98.49 Cataract extraction status, unspecified eye; Z90.710 Acquired absence of both cervix and uterus; Z99.81 Dependence on supplemental oxygen; Z68.33 Body mass index [BMI] 33.0-33.9, adult; Z82.3 Family history of stroke; Z83.3 Family history of diabetes mellitus; Z84.89 Family history of other specified conditions; Z82.49 Family history of ischemic heart disease and other diseases of the circulatory system
CPT/HCPCS: 36415; 71045; 80048; 82962; 83605; 83880; 84484; 85007; 85025; 87040; 93005; 94640; 94644; 94760; 96365; 96375; 97161-GP; 97166-GO; 99285; 99285-25; J0456; J0690; J0696; J1815; J2920; J2930; J7050; J7512; J7613; J7620; J7626; Q0144

== ENCOUNTER 2018-02-12 11:08 | Inpatient (IN) | payer BC ==
[2018-02-12 11:35] LABS: ADD MAN DIFF? NO
[2018-02-12 11:39] LABS: BASO # 0.1 x10^3/uL (0.0-0.2); BASO % 1 % (0-3); EOS # 0.1 x10^3/uL (0.0-0.7); EOS % 1 % (0-3); HEMATOCRIT 33.5 % (36.0-47.0); LYMPH # 1.2 x10^3/uL (1.0-4.8); LYMPH % 12 % (24-48); MEAN CORPUSCULAR HEMOGLOBIN 28 pg (25-35); MEAN CORPUSCULAR HGB CONC 33 g/dL (31-37); MEAN CORPUSCULAR VOLUME 86 fL (79-100); MONO # 0.6 x10^3/uL (0.0-1.1); MONO % 6 % (0-9); NEUT # 7.9 x10^3uL (1.8-7.7); NEUT % 80 % (31-73); PLATELET COUNT 249 x10^3/uL (140-400); RED BLOOD COUNT 3.91 x10^6/uL (3.50-5.40); RED CELL DISTRIBUTION WIDTH 15.1 % (11.5-14.5); WHITE BLOOD COUNT 9.8 x10^3/uL (4.0-11.0)
[2018-02-12] MEDS: methylPREDNISolone SOD SUCC PF 125 MG/2 ML VIAL. IV (11:49)
[2018-02-12 11:58] LABS: ANION GAP 6 (6-14); BLOOD UREA NITROGEN 13 mg/dL (7-20); BUN/CREATININE RATIO 16 (6-20); CALCIUM 9.4 mg/dL (8.5-10.1); CARBON DIOXIDE 33 mmol/L (21-32); CHLORIDE 104 mmol/L (98-107); CREATININE 0.8 mg/dL (0.6-1.0); GFR 69.6; GLUCOSE 105 mg/dL (70-99); POTASSIUM 4.1 mmol/L (3.5-5.1); SODIUM 143 mmol/L (136-145)
[2018-02-12] MEDS: IPRATRPIUM/ALBUTEROL 0.5/2.5MG 3 ML NEBU. NEB ×4 (12:00→20:20)
[2018-02-12] MEDS: ONDANSETRON PF 4 MG/2 ML VIAL. IV (12:01)
[2018-02-12 12:03] LABS: ALBUMIN 3.3 g/dL (3.4-5.0); ALBUMIN/GLOBULIN RATIO 1.1 (1.0-1.7); ALK PHOS 79 U/L (46-116); ALT (SGPT) 28 U/L (14-59); AST (SGOT) 22 U/L (15-37); TOTAL BILIRUBIN 0.3 mg/dL (0.2-1.0); TOTAL PROTEIN 6.4 g/dL (6.4-8.2)
[2018-02-12 12:07] LABS: TROPONINI < 0.017 ng/mL (0.000-0.055)
[2018-02-12] MEDS: traZODone 50 MG TABLET. PO (14:55)
[2018-02-12] MEDS: ACETAMINOPHEN 325 MG TABLET. PO (14:55)
[2018-02-12] MEDS ORDERED: POTASSIUM CHLORIDE 10 MEQ TABLET.ER. PO (18:00)
[2018-02-12] MEDS ORDERED: hydroCHLOROthiazide 25 MG TABLET PO (18:00)
[2018-02-12] MEDS: FAMOTIDINE 20 MG TABLET. PO (20:53)
[2018-02-12] MEDS: APIXABAN 5 MG TABLET. PO (20:54)
[2018-02-12] MEDS: PREGABALIN 25 MG CAPSULE PO (20:54)
[2018-02-12] MEDS: MORPHINE SULFATE 2 MG/ML DISP.SYRIN. IV (23:30)
[2018-02-13] MEDS: ALBUTEROL SULFATE 2.5 MG/3 ML NEBU. NEB ×2 (02:32→15:51)
[2018-02-13] MEDS: IPRATRPIUM/ALBUTEROL 0.5/2.5MG 3 ML NEBU. NEB ×3 (07:55→19:52)
[2018-02-13] MEDS: predniSONE 10 MG TABLET PO (10:01)
[2018-02-13] MEDS: APIXABAN 5 MG TABLET. PO ×2 (10:01→21:50)
[2018-02-13] MEDS: SERTRALINE 50 MG TABLET. PO (10:02)
[2018-02-13] MEDS: BENZONATATE 100 MG CAPSULE. PO ×2 (10:02→21:58)
[2018-02-13] MEDS: PANTOPRAZOLE 40 MG TABLET.DR. PO (10:02)
[2018-02-13] MEDS: PREGABALIN 25 MG CAPSULE PO ×2 (10:02→13:40)
[2018-02-13] MEDS: NICOTINE 21MG PATCH. TD (10:03)
[2018-02-13] MEDS: ANTI-COAG MONITOR BY PHARMACY. MC (12:49)
[2018-02-13] MEDS: CEFEPIME HCL IV Push 2 GM VIAL. IVP ×2 (13:41→21:50)
[2018-02-13] MEDS: traMADol 50 MG TABLET PO (13:42)
[2018-02-13] MEDS ORDERED: CEFEPIME HCL 2 GM in IV DEXTROSE 5% 100ML 100 ML IV (14:00)
[2018-02-13] MEDS: PREGABALIN 75 MG CAPSULE PO (17:25)
[2018-02-13] MEDS ORDERED: ALBUTEROL SULFATE 2.5 MG/3 ML NEBU. NEB (18:15)
[2018-02-13] MEDS ORDERED: ALPRAZolam 0.25 MG TABLET PO (18:15)
[2018-02-13] MEDS: BUDESONIDE 0.5 MG/2 ML NEBU. NEB (19:52)
[2018-02-14] MEDS: IPRATRPIUM/ALBUTEROL 0.5/2.5MG 3 ML NEBU. NEB ×6 (00:45→20:00)
[2018-02-14] MEDS: CEFEPIME HCL IV Push 2 GM VIAL. IVP ×3 (06:21→20:41)
[2018-02-14] MEDS: BUDESONIDE 0.5 MG/2 ML NEBU. NEB ×2 (08:44→20:00)
[2018-02-14] MEDS: PANTOPRAZOLE 40 MG TABLET.DR. PO (09:20)
[2018-02-14] MEDS: SERTRALINE 50 MG TABLET. PO (09:21)
[2018-02-14] MEDS: APIXABAN 5 MG TABLET. PO ×2 (09:21→20:42)
[2018-02-14] MEDS: predniSONE 10 MG TABLET PO (09:21)
[2018-02-14] MEDS: NICOTINE 21MG PATCH. TD (09:22)
[2018-02-14] MEDS: ANTI-COAG MONITOR BY PHARMACY. MC (13:13)
[2018-02-14] MEDS: LIDOCAINE 1% PF 5 ML VIAL. NEB (15:47)
[2018-02-14] MEDS: PREGABALIN 75 MG CAPSULE PO (17:39)
[2018-02-14] MEDS: LACTOBACILLUS RHAMNOSUS GG 1 CAPSULE. PO (20:41)
[2018-02-14] MEDS: traMADol 50 MG TABLET PO (20:42)
[2018-02-15] MEDS: IPRATRPIUM/ALBUTEROL 0.5/2.5MG 3 ML NEBU. NEB ×7 (04:00→23:09)
[2018-02-15] MEDS: CEFEPIME HCL IV Push 2 GM VIAL. IVP ×2 (05:18→15:40)
[2018-02-15] MEDS: BUDESONIDE 0.5 MG/2 ML NEBU. NEB ×2 (07:14→19:03)
[2018-02-15] MEDS ORDERED: SENNOSIDES 8.6 MG TABLET PO (08:30)
[2018-02-15] MEDS: NICOTINE 21MG PATCH. TD (09:07)
[2018-02-15] MEDS: APIXABAN 5 MG TABLET. PO ×2 (09:07→20:25)
[2018-02-15] MEDS: predniSONE 10 MG TABLET PO (09:07)
[2018-02-15] MEDS: LACTOBACILLUS RHAMNOSUS GG 1 CAPSULE. PO ×2 (09:08→20:24)
[2018-02-15] MEDS: SERTRALINE 50 MG TABLET. PO (09:08)
[2018-02-15] MEDS: PANTOPRAZOLE 40 MG TABLET.DR. PO (09:08)
[2018-02-15 09:25] LABS: ADD MAN DIFF? NO
[2018-02-15 09:28] LABS: BASO % 0 % (0-3); EOS # 0.1 x10^3/uL (0.0-0.7); EOS % 1 % (0-3); HEMATOCRIT 31.1 % (36.0-47.0); HEMOGLOBIN 10.1 g/dL (12.0-15.5); LYMPH # 2.1 x10^3/uL (1.0-4.8); LYMPH % 21 % (24-48); MEAN CORPUSCULAR HEMOGLOBIN 28 pg (25-35); MEAN CORPUSCULAR HGB CONC 33 g/dL (31-37); MEAN CORPUSCULAR VOLUME 86 fL (79-100); MONO # 0.8 x10^3/uL (0.0-1.1); MONO % 8 % (0-9); NEUT # 7.1 x10^3uL (1.8-7.7); NEUT % 70 % (31-73); PLATELET COUNT 231 x10^3/uL (140-400); RED BLOOD COUNT 3.61 x10^6/uL (3.50-5.40); RED CELL DISTRIBUTION WIDTH 14.9 % (11.5-14.5); WHITE BLOOD COUNT 10.1 x10^3/uL (4.0-11.0)
[2018-02-15 09:39] LABS: ANION GAP 6 (6-14); BLOOD UREA NITROGEN 23 mg/dL (7-20); CALCIUM 8.6 mg/dL (8.5-10.1); CARBON DIOXIDE 34 mmol/L (21-32); CHLORIDE 103 mmol/L (98-107); GFR 53.8; GLUCOSE 163 mg/dL (70-99); POTASSIUM 3.5 mmol/L (3.5-5.1); SODIUM 143 mmol/L (136-145)
[2018-02-15] MEDS: ANTI-COAG MONITOR BY PHARMACY. MC (14:39)
[2018-02-15] MEDS: traMADol 50 MG TABLET PO ×2 (15:58→22:02)
[2018-02-15] MEDS: PREGABALIN 75 MG CAPSULE PO (17:19)
[2018-02-15] MEDS: LIDOCAINE 1% PF 5 ML VIAL. NEB (19:02)
[2018-02-15] MEDS: BENZONATATE 100 MG CAPSULE. PO (20:25)
[2018-02-16] MEDS: IPRATRPIUM/ALBUTEROL 0.5/2.5MG 3 ML NEBU. NEB ×2 (04:00→06:06)
[2018-02-16] MEDS: BUDESONIDE 0.5 MG/2 ML NEBU. NEB (06:06)
[2018-02-16] MEDS: predniSONE 10 MG TABLET PO (08:09)
[2018-02-16] MEDS: LACTOBACILLUS RHAMNOSUS GG 1 CAPSULE. PO (08:09)
[2018-02-16] MEDS: SERTRALINE 50 MG TABLET. PO (08:09)
[2018-02-16] MEDS: APIXABAN 5 MG TABLET. PO (08:09)
[2018-02-16] MEDS: PANTOPRAZOLE 40 MG TABLET.DR. PO (08:09)
[2018-02-16] MEDS: NICOTINE 21MG PATCH. TD (08:10)
== END 2018-02-16 09:30 | disposition home health service (06) | DRG 189 ==
LOC: ER 11:08 → 6 SOUTH 11:15
DX: J96.21 Acute and chronic respiratory failure with hypoxia (principal); J44.1 Chronic obstructive pulmonary disease with (acute) exacerbation; I50.22 Chronic systolic (congestive) heart failure; I11.0 Hypertensive heart disease with heart failure; I48.0 Paroxysmal atrial fibrillation; K21.9 Gastro-esophageal reflux disease without esophagitis; F32.9 Major depressive disorder, single episode, unspecified; F41.9 Anxiety disorder, unspecified; M19.90 Unspecified osteoarthritis, unspecified site; G89.29 Other chronic pain; K59.09 Other constipation; M54.2 Cervicalgia; Z96.641 Presence of right artificial hip joint; F17.210 Nicotine dependence, cigarettes, uncomplicated; Z86.718 Personal history of other venous thrombosis and embolism; Z88.2 Allergy status to sulfonamides; Z90.710 Acquired absence of both cervix and uterus; Z90.49 Acquired absence of other specified parts of digestive tract; Z82.5 Family history of asthma and other chronic lower respiratory diseases; Z71.6 Tobacco abuse counseling; Z99.81 Dependence on supplemental oxygen
CPT/HCPCS: 36415; 71045; 80048; 80053; 84484; 85025; 87070; 87205; 93005; 94640; 94760; 96374; 96375; 97110-GP; 97162-GP; 97165-GO; 99285; 99285-25; J0692; J2270; J2405; J2930; J7512; J7613; J7620; J7626

== ENCOUNTER 2018-07-25 20:02 | Emergency (ER) | payer BC ==
[~2018-07-25] VITALS: Ht 165.1 cm; Wt 86.6 kg
[~2018-07-25 20:02] MED LIST changes: +AMOX1TAB11 PO; +BENZ-8 PO; -BENZ100C15 PO; +BUDE0.5A NEB; +COLE1TAB PO; -GABA-586 PO; +GABA300C18 PO; +GABA600T2 PO; +HYDR-2145 PO; -HYDR-2762 PO; +HYDR-2765 PO; -HYDR12.53 PO; +HYDR12.575 PO; -IPRA3AMP IH; +IPRA3AMP29 IH; +LACT1CAP19 PO; +POTA99TA10 PO; +PREG25CA PO; +PREG50CA PO; +Pantoprazole PO; +SENN1TAB15 PO; +SERT100T PO; +SERT50TA8 PO; +TRAM50TA PO
[2018-07-25] MEDS ORDERED: IV NORMAL SALINE 1000ML BAG 1,000 ML IV ONE (20:30)
[2018-07-25] MEDS ORDERED: ONDANSETRON PF 4 MG/2 ML VIAL. IV ONE (20:30)
[2018-07-25] MEDS ORDERED: fentaNYL PF VIAL 100 MCG/2 ML VIAL IV ONE (20:30)
[2018-07-25] MEDS ORDERED: PROCHLORPERAZINE 10 MG/2 ML VIAL. IV ONE (20:30)
--- NOTE | 2018-07-25 20:35 | EKG ---
[facility] [address] [place] [address] Test Date: 2018-07-25 Test Time: 20:06:45 Pat Name: BERNA BRAVO Department: Room: Gender: F Speaker Wirer: : [id number] Requested By: NATASHA DE JESUS Order Number: [id number] Reading MD: Measurements Intervals [place] Rate: 88 P: 111 [place]: 162 QRS: -81 QRSD: 126 T: 41 QT: 394 QTc: 480 Interpretive Statements SINUS RHYTHM ABNORMAL LEFT AXIS DEVIATION LEFT ANTERIOR FASCICULAR BLOCK RIGHT BUNDLE BRANCH BLOCK BIFASCICULAR BLOCK ABNORMAL ECG RI6.01 No previous ECG available for comparison
[2018-07-25 20:37] LABS: BASO % 0 % (0-3); EOS % 0 % (0-3); HEMATOCRIT 42.1 % (36.0-47.0); HEMOGLOBIN 14.6 g/dL (12.0-15.5); LYMPH # 1.1 x10^3/uL (1.0-4.8); LYMPH % 11 % (24-48); MEAN CORPUSCULAR HEMOGLOBIN 31 pg (25-35); MEAN CORPUSCULAR HGB CONC 35 g/dL (31-37); MEAN CORPUSCULAR VOLUME 89 fL (79-100); MONO # 0.8 x10^3/uL (0.0-1.1); MONO % 8 % (0-9); NEUT # 8.3 x10^3uL (1.8-7.7); NEUT % 80 % (31-73); PLATELET COUNT 177 x10^3/uL (140-400); RED BLOOD COUNT 4.75 x10^6/uL (3.50-5.40); RED CELL DISTRIBUTION WIDTH 15.5 % (11.5-14.5); WHITE BLOOD COUNT 10.3 x10^3/uL (4.0-11.0)
[2018-07-25 20:44] LABS: CALCIUM 9.5 mg/dL (8.5-10.1); CREATININE 0.9 mg/dL (0.6-1.0); GFR 60.6; POTASSIUM 3.1 mmol/L (3.5-5.1)
[2018-07-25] MEDS ORDERED: HALOPERIDOL LACTATE 5 MG/ML VIAL. IVP ONE (20:45)
[2018-07-25 20:51] LABS: ALBUMIN/GLOBULIN RATIO 0.8 (1.0-1.7); TOTAL BILIRUBIN 0.4 mg/dL (0.2-1.0)
[2018-07-25 21:20] LABS: BILIRUBIN,URINE NEGATIVE (NEG); CLARITY,URINE CLEAR; COLOR,URINE YELLOW; NITRITE,URINE NEGATIVE (NEG); PROTEIN,URINE NEGATIVE (NEG-TRACE); UROBILINOGEN,URINE 0.2 mg/dL (0.2 mg/dL)
[2018-07-25 21:27] LABS: BACTERIA,URINE FEW /HPF (0-FEW); RBC,URINE OCC /HPF (0-2); SQUAMOUS EPITHELIAL CELL,UR FEW /LPF; WBC,URINE OCC /HPF (0-4)
[2018-07-25] MEDS ORDERED: POTASSIUM CHLORIDE 20 MEQ TABLET.ER. PO ONE (22:00)
--- NOTE | 2018-07-25 22:13 | PHYS DOC ---
Past Medical History Past Medical History: A-Fib, Anxiety, Arthritis, Constipation, COPD, Hypertension, Other Additional Past Medical Histor: chronic neck pain,DVT,NEUROPATHY Past Surgical History: Hip Replacement, Hysterectomy, Other Additional Past Surgical Histo: Pacemaker- L chest, bladder suspension, hernia repair Alcohol Use: None Drug Use: None Adult General Chief Complaint Chief Complaint: ABDOMINAL PAIN HPI HPI Patient is a 78 year old female with history of COPD, hypertension, constipation, who presents today complaining of nausea and vomiting as well as generalized abdominal pain for 2 days. Patient is currently on hospice. She states she took morphine at home as well as promethazine with no relief. Patient denies any hematemesis or melena. She states her last bowel movement was yesterday and normal. She is currently on hospice for COPD. Review of Systems Review of Systems Constitutional: Denies fever or chills [] Eyes: Denies change in visual acuity, redness, or eye pain [] HENT: Denies nasal congestion or sore throat [] Respiratory: Denies cough or shortness of breath [] Cardiovascular: No additional information not addressed in HPI [] GI: Reports generalized abdominal pain, nausea and vomiting, denies bloody stools or diarrhea [] : Denies dysuria or hematuria [] Musculoskeletal: Denies back pain or joint pain [] Integument: Denies rash or skin lesions [] Neurologic: Denies headache, focal weakness or sensory changes [] All other systems were reviewed and found to be within normal limits, except as documented in this note. Current Medications Current Medications Current Medications Medications (Trade) Dose Ordered Sig/Ck Start Time Stop Time Status Last Admin Dose Admin Fentanyl Citrate (Fentanyl 2ml Vial) 50 mcg 1X ONCE 07/25/18 20:30 07/25/18 20:31 DC 07/25/18 20:38 50 MCG Haloperidol Lactate (Haldol Inj) 5 mg 1X ONCE 07/25/18 20:45 07/25/18 20:46 DC 07/25/18 20:49 5 MG Ondansetron HCl (Zofran) 4 mg 1X ONCE 07/25/18 20:30 07/25/18 20:31 DC 07/25/18 20:38 4 MG Potassium Chloride (Klor-Con) 40 meq 1X ONCE 07/25/18 22:00 07/25/18 22:01 DC 07/25/18 21:48 40 MEQ Prochlorperazine Edisylate (Compazine) 10 mg 1X ONCE 07/25/18 20:30 07/25/18 20:31 DC 07/25/18 20:37 10 MG Sodium Chloride 1,000 ml @ 1,000 mls/hr 1X ONCE 07/25/18 20:30 07/25/18 21:29 DC 07/25/18 20:38 1,000 MLS/HR Allergies Allergies Allergies Coded Allergies Type Severity Reaction Last Updated Verified Sulfa (Sulfonamide Antibiotics) Allergy Intermediate Rash 12/01/16 Yes Physical Exam Physical Exam Constitutional: Well developed, well nourished, no acute distress, non-toxic appearance. [] HENT: Normocephalic, atraumatic, bilateral external ears normal, oropharynx moist, no oral exudates, nose normal. [] Eyes: PERRLA, EOMI, conjunctiva normal, no discharge. [] Neck: Normal range of motion, no tenderness, supple, no stridor. [] Cardiovascular:Heart rate regular rhythm, no murmur [] Lungs & Thorax: Diminished breath sounds to posterior lung bases, patient is on oxygen chronically. Abdomen: Bowel sounds normal, soft, diffuse tenderness on the left lower quadrant, no right lower quadrant or right upper quadrant tenderness, no masses , no pulsatile masses. [] Skin: Warm, dry, no erythema, no rash. [] Back: No tenderness, no CVA tenderness. [] Extremities: No tenderness, no cyanosis, no clubbing, ROM intact, no edema. [] Neurologic: Alert and oriented X 3, normal motor function, normal sensory function, no focal deficits noted. [] Psychologic: Affect normal, judgement normal, mood normal. [] Current Patient Data Vital Signs Vital Signs Date Time Temp Pulse Resp B/P (MAP) Pulse Ox O2 Delivery O2 Flow Rate FiO2 07/25/18 22:15 84 16 146/67 (93) 94 Nasal Cannula 3.0 07/25/18 20:02 97.8 97.8 Lab Values Laboratory Tests Test 07/25/18 20:20 07/25/18 21:10 White Blood Count 10.3 x10^3/uL (4.0-11.0) Red Blood Count 4.75 x10^6/uL (3.50-5.40) Hemoglobin 14.6 g/dL (12.0-15.5) Hematocrit 42.1 % (36.0-47.0) Mean Corpuscular Volume 89 fL (79-100) Mean Corpuscular Hemoglobin 31 pg (25-35) Mean Corpuscular Hemoglobin Concent 35 g/dL (31-37) Red Cell Distribution Width 15.5 % (11.5-14.5) H Platelet Count 177 x10^3/uL (140-400) Neutrophils (%) (Auto) 80 % (31-73) H Lymphocytes (%) (Auto) 11 % (24-48) L Monocytes (%) (Auto) 8 % (0-9) Eosinophils (%) (Auto) 0 % (0-3) Basophils (%) (Auto) 0 % (0-3) Neutrophils # (Auto) 8.3 x10^3uL (1.8-7.7) H Lymphocytes # (Auto) 1.1 x10^3/uL (1.0-4.8) Monocytes # (Auto) 0.8 x10^3/uL (0.0-1.1) Eosinophils # (Auto) 0.0 x10^3/uL (0.0-0.7) Basophils # (Auto) 0.0 x10^3/uL (0.0-0.2) Sodium Level 142 mmol/L (136-145) Potassium Level 3.1 mmol/L (3.5-5.1) L Chloride Level 95 mmol/L (98-107) L Carbon Dioxide Level 41 mmol/L (21-32) H Anion Gap 6 (6-14) Blood Urea Nitrogen 23 mg/dL (7-20) H Creatinine 0.9 mg/dL (0.6-1.0) Estimated GFR (Cockcroft-Gault) 60.6 BUN/Creatinine Ratio 26 (6-20) H Glucose Level 130 mg/dL (70-99) H Calcium Level 9.5 mg/dL (8.5-10.1) Total Bilirubin 0.4 mg/dL (0.2-1.0) Aspartate Amino Transferase (AST) 20 U/L (15-37) Alanine Aminotransferase (ALT) 31 U/L (14-59) Alkaline Phosphatase 70 U/L (46-116) Troponin I Quantitative < 0.017 ng/mL (0.000-0.055) Total Protein 7.0 g/dL (6.4-8.2) Albumin 3.0 g/dL (3.4-5.0) L Albumin/Globulin Ratio 0.8 (1.0-1.7) L Lipase 103 U/L (73-393) Urine Collection Type Unknown Urine Color Yellow Urine Clarity Clear Urine pH 7.0 Urine Specific [place] 1.010 Urine Protein Negative mg/dL (NEG-TRACE) Urine Glucose (UA) Negative mg/dL (NEG) Urine Ketones (Stick) Negative mg/dL (NEG) Urine Blood Negative (NEG) Urine Nitrite Negative (NEG) Urine Bilirubin Negative (NEG) Urine Urobilinogen Dipstick 0.2 mg/dL (0.2 mg/dL) Urine Leukocyte Esterase Negative (NEG) Urine RBC Occ /HPF (0-2) Urine WBC Occ /HPF (0-4) Urine Squamous Epithelial Cells Few /LPF Urine Bacteria Few /HPF (0-FEW) Laboratory Tests 07/25/18 20:20 Laboratory Tests 07/25/18 20:20 EKG EKG EKG interpreted by Dr. Quevedo sinus rhythm HR 88 no STEMI[] Radiology/Procedures Radiology/Procedures Acute abdominal series noted for constipation[] Course & Med Decision Making Course & Med Decision Making Pertinent Labs and Imaging studies reviewed. (See chart for details) This is a 78-year-old female patient currently on hospice for COPD presenting to the ED today with generalized abdominal pain, nausea vomiting for 2 days. Patient was given fentanyl on arrival to the ED, Zofran, Compazine and Haldol. Symptoms have been relieved. CBC with normal WBC. CMP with potassium of 3.1, patient was given oral potassium replacement. Chloride 95, CO2 23, patient has COPD hence and on hospice for end stage COPD. acute abdominal series noted for constipation. Mag citrate recommended. I discussed with the patient and family on today's visit expectation considering she is already on hospice. Patient as well as family requested she gets discharge back to home. Follow-up with her own PCP. Staff Physician Addendum: I was working in the ER during the course of this patient's visit. I was available for consultation as needed, but I was not directly involved in the care of this patient. Dragon Disclaimer Dragon Disclaimer This electronic medical record was generated, in whole or in part, using a voice recognition dictation system. Departure Departure Impression: Primary Impression: Abdominal pain Additional Impressions: Constipation Nausea and vomiting Disposition: 01 HOME, SELF-CARE Condition: STABLE Referrals: CORBIN ROSEN MD (PCP) follow up in one week Patient Instructions: Abdominal Pain, Constipation, Adult, Nausea and Vomiting , [id number] Additional Instructions: You were evaluated in the emergency room for abdominal pain,nausea and vomiting. Continue taking your medications as ordered at home. Follow up with your doctor next week Problem Qualifiers Primary Impression: Abdominal pain Abdominal location: generalized Qualified Codes: R10.84 - Generalized abdominal pain Additional Impressions: Constipation Constipation type: unspecified constipation type Qualified Codes: K59.00 - Constipation, unspecified Nausea and vomiting Vomiting type: unspecified Vomiting Intractability: unspecified Qualified Codes: R11.2 - Nausea with vomiting, unspecified MUTUNGANATASHA APRN Jul 25, 2018 22:13 PATI QUEVEDO MD Jul 29, 2018 08:54
[2018-07-25 22:15] VITALS: BP 146/67
--- NOTE | 2018-07-25 23:21 | RAD ---
ACUTE ABDOMEN SERIES History: Right lower quadrant abdominal pain x2 days. Comparison: AP chest, March 22, 2018. Findings: Frontal chest and supine and upright views of the abdomen. Stable left chest dual-chamber pacer. Atherosclerotic aortic arch. Cardiac size is normal. Stable blunting left costophrenic angle, may be due to scarring. Lungs are clear. There is no layering pleural effusion or pneumothorax. No pneumoperitoneum is identified. No dilated air-filled loops of small bowel are seen. There is moderate colon stool volume. Bowel gas pattern is nonobstructive. No obvious organomegaly. There is right hip arthroplasty. IMPRESSION: 1. No acute cardiopulmonary process. 2. Nonobstructive bowel gas pattern. 3. Moderate colon stool volume, correlate for constipation. Electronically signed by: Albaro Lynch MD (07/25/2018 11:17 PM) [facility]
== END 2018-07-25 22:54 | disposition home or self-care (01) ==
LOC: ER 20:02
DX: K59.00 Constipation, unspecified (principal); R11.2 Nausea with vomiting, unspecified; I48.91 Unspecified atrial fibrillation; J44.9 Chronic obstructive pulmonary disease, unspecified; I10 Essential (primary) hypertension; G89.29 Other chronic pain; Z90.710 Acquired absence of both cervix and uterus; Z96.649 Presence of unspecified artificial hip joint; Z98.890 Other specified postprocedural states; Z95.0 Presence of cardiac pacemaker; Z86.718 Personal history of other venous thrombosis and embolism; Z88.2 Allergy status to sulfonamides
CPT/HCPCS: 36415; 74022; 80053; 81001; 83690; 84484; 85025; 93005; 96361; 96374; 96375; 99284; J0780; J1630; J2405; J3010; J7030